=== PATIENT | female | born 1930 | race Caucasian/White ===

== ENCOUNTER 2020-08-04 11:25 | Inpatient (IN) | payer MEDICARE, OTHER ==
--- NOTE | 2020-08-04 14:48 | PCM.HP.2 ---
H&P History of Present Illness - General Date of Service: 08/04/20 Source of Information: Patient History Limitations: Reports: No Limitations - History of Present Illness Initial Comments - Free Text/Narative: Pt here for admit to swing bed was recently admitted acutely for ORIF of ankle fracture and w/u of syncopal episode Here for PT and OT Pt is diabetic Location: Reports: Lower Extremity, Right Quality: Reports: Ache Improves with: Reports: Immobilization Worsens with: Reports: Movement - Related Data Allergies/Adverse Reactions: Allergies Allergy/AdvReac Type Severity Reaction Status Date / Time No Known Allergies Allergy Verified 08/04/20 12:20 Home Medications: Home Meds Acetaminophen 2 tab PO Q8HR 08/04/20 [History] Ascorbic Acid [Vitamin C] 1 tab PO DAILY 08/04/20 [History] Aspirin [Aspirin EC] 2 tab PO DAILY@12 08/04/20 [History] Bismuth Subsalicylate [Pepto-Bismol] 30 ml PO TID PRN 08/04/20 [History] Calcium Carbonate 2 tab PO Q4HR PRN 08/04/20 [History] Calcium Citrate/Vitamin D3 [Calcium Citrate - Vit D3 Tab] 1 tab PO BIDMEALS 08/04/20 [History] Cholecalciferol (Vitamin D3) [Vitamin D3] 1 tab PO DAILY 08/04/20 [History] Cyanocobalamin (Vitamin B-12) [B-12] 1 tab PO DAILY 08/04/20 [History] Enoxaparin [Lovenox] 40 mg SQ DAILY 08/04/20 [History] Glimepiride 1 tab PO DAILY PRN 08/04/20 [History] Losartan [Cozaar] 1 tab PO DAILY 08/04/20 [History] Magnesium Chloride [Mag-64] 1 tab PO DAILY 08/04/20 [History] Melatonin 1 tab PO BEDTIME PRN 08/04/20 [History] Multivit-Min/Iron/Folic/Lutein [Centrum Silver Women Tablet] 1 tab PO DAILY 08/04/20 [History] Sennosides/Docusate Sodium [Senna-S 8.6-50 mg Tablet] 1 tab PO BID 08/04/20 [History] Simvastatin [Zocor] 1 tab PO DAILY 08/04/20 [History] metFORMIN [Glucophage] 2 tab PO BIDMEALS 08/04/20 [History] oxyCODONE 1 tab PO Q4HR PRN 08/04/20 [History] polyethylene glycoL 3350 [MiraLAX] 1 packet PO DAILY 08/04/20 [History] Past Medical History HEENT History: Reports: Cataract, Impaired Vision Cardiovascular History: Reports: High Cholesterol, Hypertension Gastrointestinal History: Reports: [employer] History: Reports: Musculoskeletal History: Reports: Fracture Endocrine/Metabolic History: Reports: Diabetes, Type II - Infectious Disease History Infectious Disease History: Reports: Chicken Pox, Measles, Mumps - Past Surgical History HEENT Surgical History: Reports: Cataract Surgery Cardiovascular Surgical History: Reports: None GI Surgical History: Reports: Colonoscopy, EGD, Hernia Repair/Other Endocrine Surgical History: Reports: None Musculoskeletal Surgical History: Reports: ORIF Social & Family History - Family History Family Medical History: No Pertinent Family History - Tobacco Use Tobacco Use Status *Q: Never Tobacco User Second Hand Smoke Exposure: No - Caffeine Use Caffeine Use: Reports: Coffee - Recreational Drug Use Recreational Drug Use: No H&P Review of Systems - Review of Systems: Review Of Systems: See Below General: Reports: No Symptoms HEENT: Reports: No Symptoms Pulmonary: Reports: No Symptoms Cardiovascular: Reports: No Symptoms Gastrointestinal: Reports: No Symptoms Genitourinary: Reports: No Symptoms Musculoskeletal: Reports: Joint Pain Psychiatric: Reports: No Symptoms Neurological: Reports: Syncope Exam - Exam Exam: See Below - Vital Signs Vital Signs: Last Vital Signs Temp 98.0 F 08/04/20 13:18 Pulse 101 H 08/04/20 13:18 Resp 17 08/04/20 13:18 BP 147/89 H 08/04/20 13:18 Pulse Ox 100 08/04/20 13:18 Weight: 120 lb 1.6 oz - Exam General: Alert, Oriented Neck: Supple Lungs: Clear to Auscultation Cardiovascular: Regular Rhythm GI/Abdominal Exam: Soft, Non-Tender Back Exam: Normal Inspection Extremities: Other (RLE in splint and dressing Dressing intact) Neurological: Normal Speech, Sensation Intact Neuro Extensive - Mental Status: Alert, Oriented x3, Normal Mood/Affect Sepsis Event Note - Evaluation Sepsis Screening Result: No Definite Risk - Focused Exam Vital Signs: Vital Signs Temp Pulse Resp BP Pulse Ox 08/04/20 13:18 98.0 F 101 H 17 147/89 H 100 - Problem List (1) Status post ORIF of fracture of ankle SNOMED Code(s): 321237624 ICD Code: Z98.890 - OTHER SPECIFIED POSTPROCEDURAL STATES; Z87.81 - PERSONAL HISTORY OF (HEALED) TRAUMATIC FRACTURE Status: Acute Current Visit: Yes (2) Diabetes SNOMED Code(s): 35853670 ICD Code: E11.9 - TYPE 2 DIABETES MELLITUS WITHOUT COMPLICATIONS Status: Acute Current Visit: Yes Problem List Initiated/Reviewed/Updated: Yes Assessment/Plan Comment:: IMP: S/P ORIF of ankle fracture Plan: Admit to swing bed for PT and OT - Mortality Measure Prognosis:: Good
[2020-08-04] MEDS ORDERED: Sennosides 8.6 MG Tab PO PRN (14:49)
[2020-08-04] MEDS ORDERED: Bisacodyl 5 MG Tab PO PRN (14:49)
[2020-08-04] MEDS ORDERED: oxyCODONE 5 MG Tab PO PRN (15:05)
[2020-08-04] MEDS ORDERED: Glimepiride 2 MG Tab PO PRN (15:05)
[2020-08-04] MEDS ORDERED: Melatonin 3 MG Tab PO PRN (15:05)
[2020-08-04] MEDS: Acetaminophen 500 MG Tab PO SCH (16:07)
[2020-08-04] MEDS: Calcium Carbonate/Vitamin D3 1500 MG-400 Units Tab PO SCH (17:17)
[2020-08-04] MEDS: metFORMIN 500 MG Tab PO SCH (17:17)
[2020-08-04] MEDS ORDERED: Acetaminophen 325 MG Tab PO PRN (20:00)
[2020-08-05] MEDS: Acetaminophen 500 MG Tab PO SCH ×4 (00:03→23:52)
[2020-08-05] MEDS: Enoxaparin 40 MG/0.4 ML Syringe SUBCUT SCH (07:46)
[2020-08-05] MEDS: Polyethylene Glycol 3350 Powder 17 GM Packet PO SCH (07:46)
[2020-08-05] MEDS: Simvastatin 20 MG Tab PO SCH (07:47)
[2020-08-05] MEDS: Losartan 50 MG Tab PO SCH (07:47)
[2020-08-05] MEDS: Multivitamin Tab PO SCH (07:47)
[2020-08-05] MEDS: metFORMIN 500 MG Tab PO SCH ×2 (07:47→17:18)
[2020-08-05] MEDS: Ascorbic Acid 500 MG Tab PO SCH (07:48)
[2020-08-05] MEDS: Cyanocobalamin (Vitamin B12) 1,000 MCG Tab PO SCH (07:49)
[2020-08-05] MEDS: Calcium Carbonate/Vitamin D3 1500 MG-400 Units Tab PO SCH ×2 (07:49→17:18)
[2020-08-05] MEDS: Cholecalciferol (Vitamin D3) 25 MCG Tab PO SCH (07:52)
[2020-08-05] MEDS: Magnesium Oxide 400 MG Tab PO SCH (07:52)
[2020-08-06] MEDS: Calcium Carbonate/Vitamin D3 1500 MG-400 Units Tab PO SCH ×2 (07:32→16:41)
[2020-08-06] MEDS: Simvastatin 20 MG Tab PO SCH (07:33)
[2020-08-06] MEDS: metFORMIN 500 MG Tab PO SCH ×2 (07:33→16:41)
[2020-08-06] MEDS: Multivitamin Tab PO SCH (07:33)
[2020-08-06] MEDS: Cholecalciferol (Vitamin D3) 25 MCG Tab PO SCH (07:33)
[2020-08-06] MEDS: Acetaminophen 500 MG Tab PO SCH ×2 (07:33→16:42)
[2020-08-06] MEDS: Magnesium Oxide 400 MG Tab PO SCH (07:33)
[2020-08-06] MEDS: Cyanocobalamin (Vitamin B12) 1,000 MCG Tab PO SCH (07:33)
[2020-08-06] MEDS: Ascorbic Acid 500 MG Tab PO SCH (07:34)
[2020-08-06] MEDS: Enoxaparin 40 MG/0.4 ML Syringe SUBCUT SCH (07:35)
[2020-08-06] MEDS: Losartan 50 MG Tab PO SCH (07:35)
[2020-08-06] MEDS: Polyethylene Glycol 3350 Powder 17 GM Packet PO SCH (07:36)
--- OUTSIDE RECORDS SUMMARY | 2020-08-06 09:22 | XMSREPORT ---
:[address] [facility] s Address [address] [place] [address] Care Team Providers Name Role Phone NATHANAEL Benavidez Primary Care Provider NATHANAEL Benavidez Attributed Provider Reason for Visit Reason Comments Fall Patient arrives via [facility] for witnessed fall in [facility]. Patient felt weak and dizzy and fell off of the ch air in the photo department. 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 She was given OJ and BS are 260 now. Patient states she hit her head as well. Auth/Cert Status Reason Specialty Diagnoses / Procedures Referred By Modesto galvan Referred To Contact Encounter Details Date Type Department Care Team Description 08/01/2020 - Hospital Encounter [facility] [address] [place] [address] [phone] Ankle fracture 08/04/[address] Lyndon Vogel MD [address] [place] [address] [phone] [address] Nadia Wharton MD [address] [place] [address] [phone] [facility] Reyes Diana MD [address] [place] [address] [phone] [place] [address] Aj Ledbetter MD [address] [place] [address] [place] [address] [phone] Allergies No Known Allergiesdocumented as of this encounter (statuses as of 08/04/2020) Medications Medication Sig Dispensed Refills Start Date End Date Status bismuth subsalicylate Take 30 mL by 0 Active (PEPTO-BISMOL) 262 mouth 3 times a mg/15 mL SUSP day as needed for diarrhea vitamin C, ascorbic Take 250 mg by 0 Active acid, 250 MG tablet mouth 1 time per day vitamin D3, Take 50 mcg by 0 Act desi cholecalciferol, 50 mcg mouth 1 time per (2000 unit) tablet day cyanocobalamin (VITAMIN Take 1,000 mcg 0 Active B-12) 1000 mcg tablet by mouth 1 time per day Multiple Take 1 tablet by 0 Act desi Vitamins-Minerals mouth 1 time per (CENTRUM SILVER day 50+WOMEN PO) magnesium chloride Take 64 mg by 0 Active (MAG64) 64 mg enteric mouth 1 time per coated tablet day glimepiride (AMARYL) 2 Take 2 mg by 90 tablet 0 12/24/2019 Active mg tabletIndications: mouth 1 time a Type 2 diabetes day as needed mellitus without (for blood sugar complication, without > 110) Give with long-term current use food. of insulin ([facility]) metFORMIN (GLUCOPHAGE) TAKE 2 TABLETS 360 tablet 0 05/05/2020 Active 500 MG BY MOUTH TWICE A tabletIndications: Type DAY 2 diabetes mellitus without complication, without long-term current use of insulin (HCC) Additional Information Patient taking differently: 1,000 mg Oral Two times a day, Informant: Self, Reported on 08/01/2020 10:08 PM losartan 50 mg tabletIndications: TAKE 1 TABLET BY 90 tablet 0 05/05/2020 Active Essential hypertension MOUTH ONCE DAILY Additional Information Patient taking differently: 50 mg Oral Every morning, Informant: Self, Reported on 08/01/2020 10:08 PM Contour NEXT test USE TO TEST BLOOD 100 each 1 05/05/2020 Active stripIndications: Type 2 SUGAR DIRECTED ONCE diabetes mellitus without DAILY NEEDED complication, without long-term current use of insulin ([facility]) simvastatin (ZOCOR) 40 mg TAKE 1/2 TABLET (20MG) 45 tablet 0 0 05/18/2020 Active tabletIndications: Mixed BY MOUTH ONCE DAILY hyperlipidemia Additional Information Patient taking differently: 20 mg Oral DAILY, Informant: Self, Reported on 08/01/2020 10:08 PM vitamin D3, Take 1 tablet 30 tablet 0 08/04/2020 Act desi cholecalciferol, 25 mcg (1,000 Units) by (1000 unit) mouth 1 time per tabletIndications: day Closed bimalleolar fracture of right ankle, initial encounter calcium citrate-vitamin Take 1 tablet by 0 1 Active D (CITRACAL + VIT D) mouth 2 times a day 315 mg-250 unit with meals tabletIndications: Closed bimalleolar fracture of right ankle, initial encounter oxyCODONE (OXY-IR) 5 mg Take 1 tablet (5 30 tablet 0 1 Active tablet (immediate mg) by mouth Every release)Indications: 4 hours as needed Closed bimalleolar for moderate pain fracture of right or severe pain ankle, initial encounter vitamin D3, Take 1 tablet 30 tablet 0 08/04/2020 Act desi cholecalciferol, 25 mcg (1,000 Units) by (1000 unit) mouth 1 time per tabletIndications: day Closed bimalleolar fracture of right ankle, initial encounter aspirin 81 mg enteric Take 2 tablets (162 30 tablet 0 08/17/19 21 Active coated mg) by mouth 1 time tabletIndications: Type per day at noon 2 diabetes mellitus without complication, without long-term current use of insulin (HCC) acetaminophen (TYLENOL) Take 2 tablets 0 08/04/2020 Active 500 mg (1,000 mg) by mouth tabletIndications: Every 8 hours Closed bimalleolar fracture of right ankle, initial encounter calcium carbonate Take 2 tablets 90 tablet 0 08/04/2020 Active (TUMS) 500 MG chewable (1,000 mg) by mouth tabletIndications: Every 4 hours as Healthcare maintenance needed for other (Specify) (acid reflux) enoxaparin (LOVENOX) 40 Inject 40 mg 0 08/05/2020 05 /0 Active mg syringe (100 mg/mL) subcutaneously 1 08/04 subcutaneous injection time per day for 13 21 solutionIndications: days Closed bimalleolar fracture of right ankle, initial encounter polyethylene glycol Take 1 packet by 0 08/05/2020 Active (MIRALAX) 17 g mouth 1 time per packetIndications: day Dissolve in 4 Closed bimalleolar to 8 ounces of fracture of right water, juice, soda, ankle, initial coffee, tea. encounter senna-docusate sodium Take 1 tablet by 0 08/04/2020 Active (SENOKOT-S;PERICOLACE) mouth 2 times a day 8.6-50 MG tabletIndications: Closed bimalleolar fracture of right ankle, initial encounter melatonin 3 mg Take 1 tablet (3 30 tablet 0 08/04/2020 Active tabletIndications: mg) by mouth at Healthcare maintenance bedtime as needed for other (Specify) (insomnia) aspirin 325 mg tablet Take 325 mg by 0 04/ Discontinued mouth 1 time per 11/03 (Da ta entry day 21 error) aspirin 81 mg enteric Take 162 mg by 0 / 2 Discontinued coated tablet mouth 1 time per (Reorder) day at noon 21 documented as of this encounter (statuses as of 08/04/2020) Active Problems Problem Noted Date Ankle fracture 08/01/2020 Type 2 diabetes mellitus without complication, without long-term current 03/28/2019 use of insulin Essential hypertension 03/28/2019 Mixed hyperlipidemia 03/28/2019 documented as of this encounter (statuses as of 08/04/2020) Immunizations Name Administration Dates Next Due FLU VACCINE HIGH DOSE 65YR+(Fluzone) 02/27/2020, 01/31/2019, 02/01/2018, 01/13/2014 Influenza Vaccine,unspecified 02/02/2017, 02/11/2016, 2014, 01/31/2013, 01/16/2012, 01/06/2011, 01/21/2010, 02/06/2008, 02/08/2006, 02/11/2003 Moderna COVID-19 Vaccine 05/28/2020, 04/30/2020 Pneumococcal Conj PCV13 01/29/2015 Pneumococcal Polysaccharide PPSV23 01/31/2000 TDAP 02/11/2016 documented as of this encounter Social History Tobacco Use Types Packs/Day Years Used Date Never Smoker Smokeless Tobacco: Never Used Alcohol Use Drinks/Week oz/Week Comments Never Alcohol Habits Answer Date Recorded How often do you have a drink containing alcohol? Never 08/01/2020 How many drinks containing alcohol do you have on a typical Not asked day when you are drinking? How often do you have six or more drinks on one occasion? No t asked Physical Activity Answer Date Recorded On average, how many days per week do you engage in moderate to 0 days 03/28/2019 strenuous exercise (like walking fast, running, jogging, dancing, swimming, biking, or other activities that cause a light or heavy sweat)? On average, how many minutes do you engage in exercise at th is 0 min 03/28/2019 level? Food Insecurity Answer Date Recorded Within the past 12 months, you worried that your food Someti mes true 12/24/2019 would run out before you got money to buy more. Within the past 12 months, the food you bought just Sometime s true 12/24/2019 didn't last and you didn't have money to get more. Sex Assigned at Date Recorded Not on file documented as of this encounter Last Filed Vital Signs Vital Sign Reading Time Taken Comments Blood Pressure 142/78 08/04/2020 8:00 AM CDT Pulse 90 08/04/2020 8:11 AM CDT Temperature 36.9 C (98.4 F) 08/04/2020 7:36 AM CDT Respiratory Rate 20 08/04/2020 7:36 AM CDT Oxygen Saturation 99% 08/04/2020 7:36 AM CDT Inhaled Oxygen Concentration - - Weight 54 kg (119 lb) 08/01/2020 10:00 PM CDT Height 165.1 cm (5' 5") 08/01/2020 10:00 PM CDT Body Mass Index 19.8 08/01/2020 10:00 PM CDT documented in this encounter Functional Status Functional Status Response Date of Assessment Do you have difficulty with walking, balance, climbing No 03/28/2019 stairs, or had a fall in the last 3 months? documented as of this encounter Discharge Summaries Aj Ledbetter MD - 08/04/2020 9:49 AM CDT Discharge Summary Patient ID: Rickie Schmid is a 89yr female. Attending Physician: Aj Ledbetter MD Discharging Provider Specialty: Adult Hospitalist Admit Date: 08/01/2020 Discharge Date: 08/04/2020 Primary Care Physician: Tawny Benavidez APRN-MENG Code Status: Full Code Primary Discharge Diagnoses 1. Mechanical fall with suspected vasovagal syncopal event with acute bimalleolar fracture of the right ankle 2. Status post ORIF right ankle with Dr. Bradshaw on 08/02/2020 Secondary Discharge Diagnoses Patient Active Problem List Diagnosis Type 2 diabetes mellitus without complication, without long-term current use of insulin (HCC) Essential hypertension Mixed hyperlipidemia Ankle fracture Hospital Course 89-year-old female with medical history including diabetes, hyperlipidemia, hypertension who was admitted on 08/01/2020 after having a ground-level fall. Per report she was noted to feeling weak and having a syncopal-like episode. On arrival vital signs were stable. Labs reviewed troponin negative, CBC was stable. She did have elevated creatinine of 1.52 which corrected to 1.03 at the time of discharge. Other electrolytes were within acceptable limits. CT head without contrast was completed which was negative for any acute intracranial findings. They did do an EKG as well which was reviewed she had sinus tachycardia with nonspecific ST-T wave changes at that time. In addition they did echocardiogram which showed normal ejection fraction no regional wall motion abnormalities. Did not appear to have any significant valvular abnormalities. They did comment on fusion of early atrial contributions of left ventricle filling. In addition they did do x-ray of the ankle and knee on the right which showed acute bimalleolar fracture of the right ankle. Toscano B type fracture of the distal fibula and nondisplaced fracture through the medial malleolus. Orthopedics was on board and ultimately patient went for surgical intervention on 08/02/2020 with open reduction internal fixation of the right ankle. Her syncopal episode was felt to be primarily vasovagal as other work-up was stable and she was feeling better when she got here and during her hospital stay. She tolerated surgery well. She was seen and evaluated by physical and Occupational Therapy.. Orthopedics continue to manage for her postop cares. Vital signs were stable. Pain was controlled primarily with Tylenol and as needed oxycodone. Patient otherwise was medically stable for discharge at this time. Due to needing additional cares she will plan to transfer to swing bed for ongoing therapy and management. Follow-ups in place per orthopedics in 2 weeks. Plan to complete 14-day course of Lovenox 40 mg daily. Other home medications and pain medications as listed below. Discharge plan discussed with patient she was in agreement with plan. Procedures Performed and Findings Procedure(s): OPEN REDUCTION INTERNAL FIXATION RIGHT ANKLE - Wound Class: Clean Discharge Exam Vital Signs: Temp: 98.4 F (36.9 C) | BP: 142/78 | Pulse: 90 | Resp: 20 | Pain Ratin (out of 10) | Weight: 54 kg (119 lb) | O2 Device: Room Air O2 Flow Rate (L/min): 2 l/min | SpO2: 99 % Intake and Output: 08/03 0700 - 08/04 0659 In: 540 [Oral:540] Out: 1000 [Urine:1000] Physical Exam Constitutional: Appearance: Normal appearance. HENT: Head: Normocephalic and atraumatic. Cardiovascular: Rate and Rhythm: Normal rate and regular rhythm. Pulmonary: Effort: Pulmonary effort is normal. No respiratory distress. Breath sounds: Normal breath sounds. Abdominal: General: Bowel sounds are normal. There is no distension. Tenderness: There is no abdominal tenderness. Musculoskeletal: Comments: RT LE surgical site CDI, good peripheral sensation and perfusion Neurological: General: No focal deficit present. Mental Status: She is alert and oriented to person, place, and time. Consults CONSULT ORTHOPEDICS CASE MANAGEMENT CONSULT Discharge Disposition ADULT Discharge Planning: Snf Medicare/Medicaid (4) Discharge Medications Medication List START taking these medications acetaminophen 500 mg tablet Commonly known as: TYLENOL Take 2 tablets (1,000 mg) by mouth Every 8 hours calcium carbonate 500 MG chewable tablet Commonly known as: TUMS Take 2 tablets (1,000 mg) by mouth Every 4 hours as needed for other (Specify) (acid reflux) calcium citrate-vitamin D 315 mg-250 unit tablet Commonly known as: CITRACAL + VIT D Take 1 tablet by mouth 2 times a day with meals enoxaparin 40 mg syringe (100 mg/mL) subcutaneous injection solution Commonly known as: LOVENOX Inject 40 mg subcutaneously 1 time per day for 13 days Start taking on: August 05, 2020 melatonin 3 mg tablet Take 1 tablet (3 mg) by mouth at bedtime as needed for other (Specify) (insomnia) oxyCODONE 5 mg tablet (immediate release) Commonly known as: OXY-IR Take 1 tablet (5 mg) by mouth Every 4 hours as needed for moderate pain or severe pain polyethylene glycol 17 g packet Commonly known as: MIRALAX Take 1 packet by mouth 1 time per day Dissolve in 4 to 8 ounces of water, juice, soda, coffee, tea. Start taking on: August 05, 2020 senna-docusate sodium 8.6-50 MG tablet Commonly known as: SENOKOT-S;PERICOLACE Take 1 tablet by mouth 2 times a day CHANGE how you take these medications aspirin 81 mg enteric coated tablet Take 2 tablets (162 mg) by mouth 1 time per day at noon Start taking on: August 16, 2020 What changed: These instructions start on August 16, 2020. If you are unsure what to do until then, ask your doctor or other care provider. losartan 50 mg tablet TAKE 1 TABLET BY MOUTH ONCE DAILY What changed: when to take this metFORMIN 500 MG tablet Commonly known as: GLUCOPHAGE TAKE 2 TABLETS BY MOUTH TWICE A DAY What changed: See the new instructions. simvastatin 40 mg tablet Commonly known as: ZOCOR TAKE 1/2 TABLET (20MG) BY MOUTH ONCE DAILY What changed: See the new instructions. * vitamin D3 (cholecalciferol) 50 mcg (2000 unit) tablet What changed: Another medication with the same name was added. Make sure you understand how and whento take each. * vitamin D3 (cholecalciferol) 25 mcg (1000 unit) tablet Take 1 tablet (1,000 Units) by mouth 1 time per day What changed: You were already taking a medication with the same name, and this prescription was added. Make sure you understand how and when to take each. * vitamin D3 (cholecalciferol) 25 mcg (1000 unit) tablet Take 1 tablet (1,000 Units) by mouth 1 time per day What changed: You were already taking a medication with the same name, and this prescription was added. Make sure you understand how and when to take each. * This list has 3 medication(s) that are the same as other medications prescribed for you. Read thedirections carefully, and ask your doctor or other care provider to review them with you. CONTINUE taking these medications bismuth subsalicylate 262 mg/15 mL Susp Commonly known as: PEPTO-BISMOL CENTRUM SILVER 50+WOMEN PO CONTOUR NEXT Strp USE TO TEST BLOOD SUGAR DIRECTED ONCE DAILY NEEDED cyanocobalamin 1000 mcg tablet Commonly known as: vitamin B-12 glimepiride 2 mg tablet Commonly known as: AMARYL magnesium chloride 64 mg enteric coated tablet Commonly known as: MAG64 vitamin C (ascorbic acid) 250 MG tablet Where to Get Your Medications These medications were sent to [facility] [place] [id number] [address] [facility] [address], [facility] [address] oxyCODONE 5 mg tablet (immediate release) Information about where to get these medications is not yet available Ask your nurse or doctor about these medications acetaminophen 500 mg tablet aspirin 81 mg enteric coated tablet calcium carbonate 500 MG chewable tablet calcium citrate-vitamin D 315 mg-250 unit tablet enoxaparin 40 mg syringe (100 mg/mL) subcutaneous injection solution melatonin 3 mg tablet polyethylene glycol 17 g packet senna-docusate sodium 8.6-50 MG tablet vitamin D3 (cholecalciferol) 25 mcg (1000 unit) tablet vitamin D3 (cholecalciferol) 25 mcg (1000 unit) tablet Discharge Instructions See AVS for discharge instructions. Tests Pending at Discharge Follow-Up Scheduled See AVS for Follow up appointments made Medical Decision Making The time spent on discharge coordination was less than 30 minutes. documented in this encounter Medications at Time of Discharge Medication Sig Dispensed Refills Start Date End Date oxyCODONE (OXY-IR) 5 Take 1 tablet (5 mg) 30 tablet 0 08/04 mg tablet (immediate by mouth Every 4 hours release)Indications: as needed for moderate Closed bimalleolar pain or severe pain fracture of right ankle, initial encounter aspirin 81 mg enteric Take 2 tablets (162 30 tablet 0 08/16 coated mg) by mouth 1 time tabletIndications: per day at noon Type 2 diabetes mellitus without complication, without long-term current use of insulin (HCC) acetaminophen Take 2 tablets (1,000 0 08/04/2020 (TYLENOL) 500 mg mg) by mouth Every 8 tabletIndications: hours Closed bimalleolar fracture of right ankle, initial encounter calcium carbonate Take 2 tablets (1,000 90 tablet 0 021 (TUMS) 500 MG chewable mg) by mouth Every 4 tabletIndications: hours as needed for Healthcare maintenance other (Specify) (acid reflux) enoxaparin (LOVENOX) Inject 40 mg 0 08/05/2020 40 mg syringe (100 subcutaneously 1 time mg/mL) subcutaneous per day for 13 days injection solutionIndications: Closed bimalleolar fracture of right ankle, initial encounter polyethylene glycol Take 1 packet by mouth 0 07/17 (MIRALAX) 17 g 1 time per day packetIndications: Dissolve in 4 to 8 Closed bimalleolar ounces of water, fracture of right juice, soda, coffee, ankle, initial tea. encounter senna-docusate sodium Take 1 tablet by mouth 0 (SENOKOT-S;PERICOLACE) 2 times a day 8.6-50 MG tabletIndications: Closed bimalleolar fracture of right ankle, initial encounter melatonin 3 mg Take 1 tablet (3 mg) 30 tablet 0 08/04/2020 tabletIndications: by mouth at bedtime as Healthcare maintenance needed for other (Specify) (insomnia) simvastatin (ZOCOR) 40 TAKE 1/2 TABLET (20MG) 45 tablet 0 0 05/18/2020 mg tabletIndications: BY MOUTH ONCE DAILY Mixed hyperlipidemia metFORMIN (GLUCOPHAGE) TAKE 2 TABLETS BY 360 tablet 0 2020 500 MG MOUTH TWICE A DAY tabletIndications: Type 2 diabetes mellitus without complication, without long-term current use of insulin ([facility]) losartan 50 mg TAKE 1 TABLET BY MOUTH 90 tablet 0 tabletIndications: ONCE DAILY Essential hypertension Contour NEXT test USE TO TEST BLOOD 100 each 05/05/2020 stripIndications: Type SUGAR DIRECTED ONCE 2 diabetes mellitus DAILY NEEDED without complication, without long-term current use of insulin ([facility]) magnesium chloride Take 64 mg by mouth 1 0 (MAG64) 64 mg enteric time per day coated tablet glimepiride (AMARYL) 2 Take 2 mg by mouth 1 90 tablet 0 11/2019 mg tabletIndications: time a day as needed Type 2 diabetes (for blood sugar > mellitus without 110) Give with food. complication, without long-term current use of insulin ([facility]) bismuth subsalicylate Take 30 mL by mouth 3 0 (PEPTO-BISMOL) 262 times a day as needed mg/15 mL SUSP for diarrhea vitamin C, ascorbic Take 250 mg by mouth 1 0 acid, 250 MG tablet time per day vitamin D3, Take 50 mcg by mouth 1 0 cholecalciferol, 50 time per day mcg (2000 unit) tablet cyanocobalamin Take 1,000 mcg by 0 (VITAMIN B-12) 1000 mouth 1 time per day mcg tablet Multiple Take 1 tablet by mouth 0 Vitamins-Minerals 1 time per day (CENTRUM SILVER 50+WOMEN PO) vitamin D3, Take 1 tablet (1,000 30 tablet 0 08/04/2020 cholecalciferol, 25 Units) by mouth 1 time mcg (1000 unit) per day tabletIndications: Closed bimalleolar fracture of right ankle, initial encounter calcium Take 1 tablet by mouth 0 08/04/2020 citrate-vitamin D 2 times a day with (CITRACAL + VIT D) 315 meals mg-250 unit tabletIndications: Closed bimalleolar fracture of right ankle, initial encounter vitamin D3, Take 1 tablet (1,000 30 tablet 0 08/04/2020 cholecalciferol, 25 Units) by mouth 1 time mcg (1000 unit) per day tabletIndications: Closed bimalleolar fracture of right ankle, initial encounter documented as of this encounter Progress Notes Yeimi Valente PA - 08/04/2020 10:18 AM CDT Orthopedic Progress Note Rickie Schmid is a 89yr old female admitted on 08/01/2020 5:33 PM. S: doing well, d/c to SNF today. Pain is steady. { Lab Results Component Value Date HEMOGLOBIN 11.2 (L) 08/03/2020 O: Vital Signs: Temp: 98.4 F (36.9 C) | BP: 142/78 | Pulse: 90 | Resp: 20 | Pain Ratin (out of 10) | Weight: 54 kg (119 lb) | O2 Device: Room Air O2 Flow Rate (L/min): 2 l/min | SpO2: 99 % Maximum Temperatures (last 24 hours) Temperature Maximum Max Temp 98.5 F (36.9 C) Exam: alert, oriented Splint is dry, no drainage Distal sensation intact A: 2 Days Post-Op Status Post: Procedure(s): OPEN REDUCTION INTERNAL FIXATION RIGHT ANKLE P: d/c to SNF today Follow up 2 weeks NWB status, on lovenox for DVT prophylaxis. Yeimi Valente PA-C Zurdo Godinez PA - 08/03/2020 3:18 PM CDT Ortho Progress Note Rickie Schmid is a 89yr old female 1 Day Post-Op, Status Post Procedure(s): OPEN REDUCTION INTERNAL FIXATION RIGHT ANKLE. BP 152/74 | Pulse 94 | Temp 98 F (36.7 C) | Resp 16 | Ht 1.651 m (5' 5") | Wt 54 kg (119 lb) | SpO2 98% | BMI 19.80 kg/m Lab Results Component Value Date HEMOGLOBIN 11.2 (L) 08/03/2020 Patient doing ok, complains of mild pain. The patient denies nausea. The dressing/incision is clean With no drainage. Splint intact. Compartments soft and non-tender. Distal NV intact right lower extremity. Plan: Continue cares. NWB RLE. Awaiting placement- swing bed Roy tomorrow? Aj Brown MD - 08/03/2020 9:58 AM CDT DAILY PROGRESS NOTE Rickie Schmid is a 89yr old female admitted on 08/01/2020 5:33 PM. Impression / Plan 1. Mechanical fall with suspected vasovagal syncopal event with acute bimalleolar fracture of the right ankle 2. Status post ORIF right ankle with Dr. Bradshaw on 08/02/2020 Plan: Orthopedics following for postoperative cares Pain control acetaminophen, oxycodone Bowel regimen in place PT and OT to follow, NWB RLE Work-up for syncope including echocardiogram troponin completed. Suspected vasovagal with dehydration otherwise no further work-up recommended at this time Will recheck labs today Acute kidney injury: Creatinine 1.52 on admission currently resolved we will continue to monitor andencourage oral intake Diabetes mellitus type 2: Holding home medications placed on sliding scale insulin Hypertension: Resume losartan Hyperlipidemia: Resume Zocor DVT prophylaxis: Postoperative Lovenox CODE STATUS: Full code Disposition: Pending orthopedic clearance as well as PT and OT evaluation for safe discharge planning. Interval History HPI No acute events overnight. Patient doing well. Pain well controlled. Did complain of some chills and a little bit of irritation in her throat this morning. No shortness of breath or chest pain. Nobowel movement at this time. Making urine. Review of Systems Review of Systems Constitutional: Positive for chills. HENT: Positive for sore throat. Eyes: Negative for visual disturbance. Respiratory: Negative for shortness of breath and wheezing. Cardiovascular: Negative for chest pain and palpitations. Gastrointestinal: Positive for constipation. Negative for abdominal pain, nausea and vomiting. Genitourinary: Negative for difficulty urinating. Musculoskeletal: Positive for arthralgias and joint swelling. Skin: Positive for wound. Neurological: Negative for dizziness and headaches. Psychiatric/Behavioral: Negative for agitation and confusion. Physical Exam Vital Signs: Temp: 98 F (36.7 C) | BP: 119/52 | Pulse: 88 | Resp: 18 | Pain Ratin (out of 10) | Weight: 54 kg (119 lb) | O2 Device: Room Air O2 Flow Rate (L/min): 2 l/min | SpO2: 97 % Maximum Temperatures (last 24 hours) Temperature Maximum Max Temp 98.3 F (36.8 C) Intake and Output: 08/02 0700 - 08/03 0659 In: 1553 [Oral:225] Out: 950 [Urine:950] Physical Exam Constitutional: Appearance: Normal appearance. HENT: Head: Normocephalic and atraumatic. Eyes: General: No scleral icterus. Conjunctiva/sclera: Conjunctivae normal. Pulmonary: Effort: Pulmonary effort is normal. No respiratory distress. Breath sounds: Normal breath sounds. Abdominal: General: Bowel sounds are normal. There is no distension. Tenderness: There is no abdominal tenderness. Musculoskeletal: Comments: RT LE dressing in place CDI, NV intact, good peripheral blood flow Neurological: General: No focal deficit present. Mental Status: She is alert and oriented to person, place, and time. Psychiatric: Mood and Affect: Mood normal. Behavior: Behavior normal. Labs Labs (Last day) 08/03/20 0634 - 08/02/20 1217 GLUCOSE POINT OF CARE 08/03/20 0634 08/02/20 2109 08/02/20 1755 08/02/20 1217 GLUCOSE POINT OF CARE Glucose POC 70-99 (mg/dL) 87 157 128 108 Medical Decision making MDM Reviewed: previous chart, nursing note and vitals Reviewed previous: labs and x-ray Interpretation: labs Юлия, Kathie Floyd APRN-EDUCATION DIRECTOR - 08/02/2020 9:17 AM CDT Hospital Progress Note Rickie Schmid is a 89yr old female admitted on 08/01/2020. Assessment / Plan Active Problems: Ankle fracture Resolved Problems: * No resolved hospital problems. * Plan: Syncope, vasovagal - dehydration, not eating, and overexerting herself that day likely playing a role - troponin negative, - telemetry - Echo - Normal left ventricular systolic function. The ejection fraction is visually estimated to be 65 %. Interventricular septal thickness in 2D is 11.0 mm. Posterior wall thickness in 2D is 9.0 mm. Mild Mitral regurgitation - no further workup needed Acute bimalleolar fracture of the right ankle - Management per Ortho - Plan for OR today. - pain management - bowel regimen in place Acute Kidney Injury - Cr 1.52 on admission - likely due to dehydration - Continue IVF - Cr 0.99 - BMP in am Diabetes mellitus type 2 - hold glimeperide and metformin - SSI Hypertension - BP 125/56 - hold losartan, prn labetalol and hydralazine Hyperlipidemia - continue zocor DVT prophylaxis - SCD pre-op - Lovenox Post-op per ortho Full COde HPI / History / ROS HPI Patient is a 89-year-old female with past medical history of diabetes type 2, hypertension, hyperlipidemia who presented to the emergency room with syncopal episode and right ankle pain status post fall. Per report, [facility] started to feel lightheaded she sat on the chair, family states then she slumped in chair and passed out. She came to and then passed out a secondtime. Sotalol for her off the chair and hit her head on the ground. Her right leg bent underneath her abnormally. They gave her some washers and candy and then checked her blood sugar. Blood sugar was 260. Nobody checked BS prior to giving her juice and candy. On admission troponin negative, CBC with WBC 12.3 otherwise unremarkable, chemistry with glucose 243, creatinine 1.52, EKG normal sinus rhythm, nonspecific ST abnormality X-ray right knee: 1. No acute traumatic change. 2. Chondrocalcinosis. 3. Arteriosclerosis.. X-ray right ankle: 1. Acute bimalleolar fracture of the right ankle. Toscano B type fracture of the distal fibula and nondisplaced fracture through the medial malleolus evident. 2. Ankle mortise appears to be well preserved. CT head: Normal unenhanced CT scan of the brain. There is no acute infarct. There is no acute intracranial hemorrhage. Interval: patient feels well, states that her family just got here and are visiting from [place]. [facility]. This is the first time she has been out of [place] in over a year and a half. States she did a lot more walking then she used to, and was not drinking enough water that day, as if she drinks more she is always running to the bathroom. States they had plans to go to [facility] later in the evening so hadn't eaten much for lunch. Just came out of the bathroom, and was in the photo section when she started to get dizzy and then passed out and hurt her ankle. Syncope likely vasovagal in nature, and dehydration and not eating playing a role. No significant abnormalities noted on echo. Will proceed to OR today, and transfer to post-op for post op cares. Ortho was consulted and plan for surgical repair of the right ankle fracture and any other indicatedprocedures with Dr. Bradshaw today Review of Systems Constitutional: Negative for chills and fever. HENT: Negative for congestion and sore throat. Cardiovascular: Negative for chest pain. Gastrointestinal: Negative for abdominal pain, nausea and vomiting. Genitourinary: Negative for dysuria. Musculoskeletal: Positive for arthralgias (right ankle pain). Negative for back pain. Neurological: Positive for syncope. Psychiatric/Behavioral: Negative for confusion. Physical / Results Current Vital Signs Temp: 97.7 F (36.5 C) BP: 125/56 Weight: 54 kg (119 lb) SpO2: 98 % Resp: 16 Pulse: 88 Current BMI (>50 = increased risk): 19.8 O2 Device: Room Air Pain Ratin Physical Exam Vitals signs and nursing note reviewed. Constitutional: General: She is not in acute distress. HENT: Head: Normocephalic and atraumatic. Eyes: Conjunctiva/sclera: Conjunctivae normal. Cardiovascular: Rate and Rhythm: Normal rate. Pulmonary: Effort: Pulmonary effort is normal. No respiratory distress. Abdominal: Tenderness: There is no abdominal tenderness. Musculoskeletal: Comments: Right leg in splint Skin: General: Skin is warm and dry. Neurological: General: No focal deficit present. Mental Status: She is alert and oriented to person, place, and time. Mental status is at baseline. Psychiatric: Mood and Affect: Mood normal. Behavior: Behavior normal. Parveen aSnchez RPh - 08/01/2020 10:13 PM CDT 08/01/2020 10:13 PM CDT - Patient was seen by pharmacy on the [facility] unit. HOME MEDICATIONS have beenreconciled and updated to match the patient's home usage. Parveen Sanchez RPh Prior to Admission Medications Prescriptions Last Dose Informant Patient Reported? Taking? Contour NEXT test strip Self No Yes Sig: USE TO TEST BLOOD SUGAR DIRECTED ONCE DAILY NEEDED Multiple Vitamins-Minerals (CENTRUM SILVER 50+WOMEN PO) 08/01/2020 at AM Self Yes Yes Sig: Take 1 tablet by mouth 1 time per day aspirin 81 mg enteric coated tablet 08/01/2020 at AM Self Yes Yes Sig: Take 162 mg by mouth 1 time per day at noon bismuth subsalicylate (PEPTO-BISMOL) 262 mg/15 mL SUSP Past Month at Unknown time Self Yes Yes Sig: Take 30 mL by mouth 3 times a day as needed for diarrhea cyanocobalamin (VITAMIN B-12) 1000 mcg tablet 08/01/2020 at AM Self Yes Yes Sig: Take 1,000 mcg by mouth 1 time per day glimepiride (AMARYL) 2 mg tablet Past Week at Unknown time Self Yes Yes Sig: Take 2 mg by mouth 1 time a day as needed (for blood sugar > 110) Give with food. losartan 50 mg tablet 08/01/2020 at AM Self No Yes Sig: TAKE 1 TABLET BY MOUTH ONCE DAILY Patient taking differently: Take 50 mg by mouth 1 time a day in the morning magnesium chloride (MAG64) 64 mg enteric coated tablet 08/01/2020 at AM Self Yes Yes Sig: Take 64 mg by mouth 1 time per day metFORMIN (GLUCOPHAGE) 500 MG tablet 08/01/2020 at AM Self No Yes Sig: TAKE 2 TABLETS BY MOUTH TWICE A DAY Patient taking differently: Take 1,000 mg by mouth 2 times a day simvastatin (ZOCOR) 40 mg tablet 07/31/2020 at PM Self No Yes Sig: TAKE 1/2 TABLET (20MG) BY MOUTH ONCE DAILY Patient taking differently: Take 20 mg by mouth 1 time per day vitamin C, ascorbic acid, 250 MG tablet 08/01/2020 at AM Self Yes Yes Sig: Take 250 mg by mouth 1 time per day vitamin D3, cholecalciferol, 50 mcg (2000 unit) tablet 08/01/2020 at AM Self Yes Yes Sig: Take 50 mcg by mouth 1 time per day Facility-Administered Medications: None documented in this encounter H&P Notes See, Dav White MD - 08/01/2020 10:11 PM CDT ADMISSION HISTORY AND PHYSICAL NOTE Patient ID: Rickie Schmid is a 89yr female. PCP: Tawny Benavidez APRN-EDUCATION DIRECTOR Attending Provider: Lyndon Vogel MD NOELLE: [phone] Impression / Plan 1. Right ankle fracture- orthopedic consult, oral tylenol, oxycodone and dilaudid prn. Plan for surgery in am. Patient low risk for perioperative complication for low risk surgery 2. Diabetes mellitus type 2- hold glimeperide and metformin, monitor blood sugar, sliding scale insulin 3. Acute renal failure- IVF, monitor creatinine 4. Hypertension- hold losartan, prn labetalol and hydralazine 5. Syncope- telemetry, echo, IVF 6. Hyperlipidemia- continue zocor 7. DVT prophylaxis- SCD 8. Leukocytosis from stress- repeat cbc in am Chief Complaint / HPI HPI Dictation #1 [id number]:[id number] Medications Prior to Admission Medications Prescriptions Last Dose Informant Patient Reported? Taking? Contour NEXT test strip Self No Yes Sig: USE TO TEST BLOOD SUGAR DIRECTED ONCE DAILY NEEDED Multiple Vitamins-Minerals (CENTRUM SILVER 50+WOMEN PO) 08/01/2020 at AM Self Yes Yes Sig: Take 1 tablet by mouth 1 time per day aspirin 81 mg enteric coated tablet 08/01/2020 at AM Self Yes Yes Sig: Take 162 mg by mouth 1 time per day at noon bismuth subsalicylate (PEPTO-BISMOL) 262 mg/15 mL SUSP Past Month at Unknown time Self Yes Yes Sig: Take 30 mL by mouth 3 times a day as needed for diarrhea cyanocobalamin (VITAMIN B-12) 1000 mcg tablet 08/01/2020 at AM Self Yes Yes Sig: Take 1,000 mcg by mouth 1 time per day glimepiride (AMARYL) 2 mg tablet Past Week at Unknown time Self Yes Yes Sig: Take 2 mg by mouth 1 time a day as needed (for blood sugar > 110) Give with food. losartan 50 mg tablet 08/01/2020 at AM Self No Yes Sig: TAKE 1 TABLET BY MOUTH ONCE DAILY Patient taking differently: Take 50 mg by mouth 1 time a day in the morning magnesium chloride (MAG64) 64 mg enteric coated tablet 08/01/2020 at AM Self Yes Yes Sig: Take 64 mg by mouth 1 time per day metFORMIN (GLUCOPHAGE) 500 MG tablet 08/01/2020 at AM Self No Yes Sig: TAKE 2 TABLETS BY MOUTH TWICE A DAY Patient taking differently: Take 1,000 mg by mouth 2 times a day simvastatin (ZOCOR) 40 mg tablet 07/31/2020 at PM Self No Yes Sig: TAKE 1/2 TABLET (20MG) BY MOUTH ONCE DAILY Patient taking differently: Take 20 mg by mouth 1 time per day vitamin C, ascorbic acid, 250 MG tablet 08/01/2020 at AM Self Yes Yes Sig: Take 250 mg by mouth 1 time per day vitamin D3, cholecalciferol, 50 mcg (2000 unit) tablet 08/01/2020 at AM Self Yes Yes Sig: Take 50 mcg by mouth 1 time per day Facility-Administered Medications: None Allergies No Known Allergies Medical / Surgical / Family History Past Medical History: Diagnosis Date Diabetes mellitus (HCC) Hyperlipidemia Hypertension Past Surgical History: Procedure Laterality Date HERNIA REPAIR History reviewed. No pertinent family history. Social History Social History Tobacco Use Smoking status: Never Smoker Smokeless tobacco: Never Used Substance Use Topics Alcohol use: Not on file Drug use: Not on file ROS Review of Systems Constitutional: Negative for activity change and appetite change. HENT: Negative for facial swelling. Eyes: Negative for discharge. Respiratory: Negative for cough and shortness of breath. Cardiovascular: Negative for chest pain and leg swelling. Gastrointestinal: Negative for abdominal distention, diarrhea and vomiting. Genitourinary: Negative for dysuria. Musculoskeletal: Positive for arthralgias and joint swelling. Skin: Negative for color change. Neurological: Positive for dizziness. Negative for weakness. Hematological: Negative for adenopathy. Psychiatric/Behavioral: Negative for agitation. All other systems reviewed and are negative. Physical Exam BP 155/76 | Pulse 106 | Temp 97.8 F (36.6 C) | Resp 16 | SpO2 98% Physical Exam Vitals signs and nursing note reviewed. Constitutional: Appearance: Normal appearance. HENT: Head: Normocephalic and atraumatic. Nose: Nose normal. Mouth/Throat: Mouth: Mucous membranes are dry. Eyes: General: Right eye: No discharge. Left eye: No discharge. Neck: Musculoskeletal: Normal range of motion. Cardiovascular: Rate and Rhythm: Normal rate and regular rhythm. Pulmonary: Effort: Pulmonary effort is normal. No respiratory distress. Breath sounds: Normal breath sounds. Abdominal: General: Bowel sounds are normal. There is no distension. Palpations: Abdomen is soft. Musculoskeletal: Comments: Cast in the right ankle Skin: General: Skin is warm and dry. Neurological: General: No focal deficit present. Mental Status: She is alert and oriented to person, place, and time. Labs Labs (Last day) 08/01/201843 - 08/01/20 184 CARDIAC MARKERS 08/01/201843 CARDIAC MARKERS Troponin I 0.000-0.028 (ng/mL) 0.006 08/01/20 184 - 08/01/20 184 CBC 08/01/201843 CBC WBC 4.0-11.0 (K/uL) 12.3 RBC 3.80-5.30 (M/uL) 4.06 Hemoglobin 11.5-15.8 (g/dL) 11.8 Hematocrit 35.0-45.0 (%) 37.2 MCV 80.0-98.0 (fL) 91.6 MCH 25.5-34.0 (pg) 29.1 MCHC 31.5-36.5 (g/dL) 31.7 RDW-CV 11.5-15.5 (%) 13.4 RDW-SD 35.5-50.0 (fl) 44.8 Platelet Count 140-400 (K/uL) 276 MPV 8.5-12.0 (fL) 9.9 08/01/201843 - 08/01/201843 CHEMISTRY 08/01/201843 CHEMISTRY Glucose 70-100 (mg/dL) 243 Sodium 135-145 (meq/L) 136 Potassium 3.5-5.3 (meq/L) 4.5 Chloride 99-110 (meq/L) 100 CO2 20-29 (meq/L) 23 Anion Gap with K 6-20 (meq/L) 18 BUN 6-22 (mg/dL) 18 Creatinine 0.60-1.10 (mg/dL) 1.52 BUN/Creatinine Ratio 10.0-25.0 11.8 Calcium 8.5-10.5 (mg/dL) 9.7 Bilirubin Total 0.2-1.2 (mg/dL) 0.4 Alkaline Phosphatase 30-150 (U/L) 52 ALT - SGPT 0-55 (U/L) 11 AST - SGOT 0-35 (U/L) 20 Protein Total 6.0-8.2 (g/dL) 7.1 Albumin 3.5-5.0 (g/dL) 4.0 eGFR >=60 (mL/min/1.73m2) 39 eGFR Non- >=60 (mL/min/1.73m2) 32 08/01/201843 - 08/01/201843 DIFFERENTIAL 08/01/201843 DIFFERENTIAL Seg Neut Absolute 1.8-8.0 (K/uL) 10.1 Lymphocytes Absolute 0.8-4.1 (K/uL) 1.1 Monocytes Absolute 0.0-1.0 (K/uL) 1.0 Eosinophils Absolute 0.0-0.7 (K/uL) 0.0 Basophil Absolute 0.0-0.2 (K/uL) 0.1 Immature Granulocyte Absolute 0.00-0.06 (K/uL) 0.08 Neutrophils Percent (%) 81.8 Neutrophils Abs. (Segs and Bands) (/uL) 10,100 Lymphocytes Percent (%) 8.5 Monocytes Percent (%) 8.4 Immature Granulocyte Percent (%) 0.6 Eosinophils Percent (%) 0.2 Basophil Percent (%) 0.5 Nucleated RBC (/100 WBC's) 0 08/01/20 1844 - 08/01/20 184 GENERAL COAGULATION 08/01/20 184 GENERAL COAGULATION Protime 12.0-14.5 (secs) 14.4 INR 2.0-3.5 1.2 08/01/20 184 - 08/01/20 184 OTHER 08/01/20 184 OTHER Age (Years) 89 Procedures Procedures Medical Decision Making MDM Reviewed: previous chart, nursing note and vitals Reviewed previous: labs and x-ray documented in this encounter Consult Notes Eliel Mar MD - 08/01/2020 10:56 PM CDT Orthopedic Consult Note Reason for Consultation: Right ankle fracture Assessment: Patient is an 89yo female with pmh significant for DMII and acute renal failure preseting with a right bimalleloar ankle fracture after a ground level fall. Patient is neurovascularly intact in the extremity. At this time, skin over the ankle appears ok. We will plan for surgical repair tomorrow. Plan: - Discussed with Dr. Bradshaw - OR tomorrow - keep splint in place - NPO at midnight - bedrest Rickie Schmid has elected to proceed with surgical repair of right ankle fracture with hardware. All risks, benefits of restoring anatomy alleviating symptoms and improving function reviewed. Alternatives, prognosis, and post-operative course were discussed. All risks including, but not limited to infection, bleeding, damage to skin, blood vessels; muscle, nerve, tendon, and bone; anesthetic complications including heart attack, stroke, anesthetic ; and the need for further surgeries were reviewed with the patient today. No surgical guarantees were given or implied. The patient was given the opportunity to ask questions. All questions were answered. Patient verbalized understanding of above and elected to proceed. HPI: Patient is an 89yo female with pmh significant for DMII and acute renal failure presenting witha right bimalleolar ankle fracture after a ground level fall. Patient states she came out of the bathroom and started feeling lightheaded. She sat on a chair a family states she slumped over the chairand passed out. They sat her up and she came to for second but then she passed out again. This timeshe fell over and hit her head on the ground and had her leg bent under her abnormally. She had right ankle pain. Xrays here showed the right ankle fracture. She denies any numbness or tingling in theleg. She lives alone and ambulates without assistive device. Physical Exam: Vitals: 08/01/20199908/01/20202908/01/20204408/01/20 2200 BP: 155/76 160/75 Pulse: 106 107 108 Resp: Temp: SpO2: 98% 98% 100% Weight: 54 kg (119 lb) Height: 165.1 cm (65") Gen: Lying in bed, NAD MSK: On gross examination of RLE, no blisters, lacerations or open wounds present; swelling presentover ankle but skin able to wrinkle; pulses 1+, capillary refill brisk, limb warm and well perfused,SPN/DPN/sural nerves intact, able to wiggle toes Labs: INR 1.2 Imaging: - X-ray: right mildly displaced bimalleolar ankle fracture PMH: Past Medical History: Diagnosis Date Diabetes mellitus (HCC) Hyperlipidemia Hypertension PSH: Past Surgical History: Procedure Laterality Date HERNIA REPAIR Review of systems: Pertinent ROS questions in HPI Eliel MD Isabela Orthopedic Surgery Resident - PGY-2 Associated attestation - Yovany Bradshaw MD - 08/02/2020 8:29 AM CDT I discussed the patient with the resident and personally interviewed and examined the patient. I verified in the medical record all resident documentation/findings, including history, physical exam, and medical decision making, and I agree with the resident's documentation. Ortho Pre-Op Note Dx: Right bimalleolar ankle fracture Plan: Surgical repair of right ankle fracture and any other indicated procedures Risks/Benefits/Alternatives to surgery and post-op rehab plan were discussed with the patient. Risksinclude but not limited to: Bleeding, possibility of transfusion, infection, injury to associated structures, DVT/PE, failure of procedure, reoperation, implant failure, persistent joint pain or stiffness. Loss of life/limb was discussed with the patient. All questions answered, no guarantees implied or givendocumented in this encounter Nursing Notes Tiffanie Bergeron RN - 08/02/2020 3:35 PM CDTAll implants verbally ordered by surgeon, verified with surgical team prior to use. Verbally verified with surgeon that no specimen was collected. conveyor technician signed OR specimen checklist to confirm. Checklist returned to OR desk at conclusion of case. documented in this encounter ED Notes Silverio Gary RN - 08/01/2020 9:10 [address]TDr. Vogel states the pt. Wants to go home and will have to be able to demo safe ambulation with crutches/NWB on right foot before she can be discharged from ER. This nurse assists the pt. With fitting her for crutches. Pt. Is able to ambulates approx. 10 feet with crutches. Pt. Is not able to bring both crutches forward when walking (moves them forward one at a time). Pt. States she will not be able to ambulate with crutches at home and will agree to admission. Pt. Uses bedside commode; is able to keep all weight off of right foot during pivot transfers. updated on this and states pt. Willbe admitted. Silverio Gilliam RN - 08/01/2020 9:05 PM CDTIn room to assist Dr. Vogel with applying splint to R ankle Lyndon Wei MD - 08/01/2020 6:25 PM CDTAssociated Order(s): ORTHOPEDIC INJURY TREATMENTPost-Procedure Diagnose(s): Closed bimalleolar fracture of right ankle, initial encounter Emergency Department Visit 08/01/2020 PT ID: Rickie Schmid is a 89yr old female CHIEF COMPLAINT: Chief Complaint Patient presents with Fall Patient arrives via [facility] for witnessed fall in [facility]. Patient felt weak and dizzy and fell off ofthe chair in the photo department. 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 She was given OJ and BS are 260 now. Patient states she hit her head as well. DIAGNOSIS/ASSESSMENT: NEW PRESCRIPTIONS: 1. Closed bimalleolar fracture of right ankle, initial encounter 2. Fall, initial encounter 3. Syncope, unspecified syncope type DISPOSITION AND PLAN: Patient Disposition: Patient Admitted and Treated in this Facility Patient will be admitted. HPI: HPI Rickie Schmid is a 89yr old female who presents to the Emergency Department with a history of diabetes, she is on metformin. Patient states she came out of the bathroom and started feel little lightheaded. She sat on a chair and got out to me and eaten nuts all she members. Family states she isslumped over the chair and passed out. They sat her up and she came to for second then she passed out again fell over and hit her head on the ground and had her leg bent under her abnormally. She came to. They got her some orange juice and candy bar and then checked her blood sugar and after the orange juice and candy bar was in the 260s. No one checked it immediately when she fell. She states she is only having minimal headache, no neck pain but she is having significant ankle pain. Otherwiseshe feels just fine. No chest pain, shortness of breath. ED COURSE Broad differential diagnosis considered including the following but not limited to: Hypoglycemia, arrhythmia, KS, intravenous hemorrhage, ankle fracture, metabolic abnormality Patient here who overall appears well at this time. She had a syncopal episode and hit her head andhas potential ankle fracture. She is swelling over the malleolus. X-rays were obtained of her kneeand ankle. I will obtain head CT. Labwork and EKG were obtained. This may be related to a hypoglycemic episode or vasovagal episode. No chest pain or shortness of breath to suggest cardiac dysrhythmia. She had prodromal symptoms with this. Lab work shows mild leukocytosis and mild renal insufficiency which is chronic and stable. X-ray shows a bimalleolar fracture of her right ankle. No knee fracture. Head CT is unremarkable. She thought she could go home and not bear weight his crutches however she was unsuccessful even getting fromthe bedside. She will require admission for likely placement. Case discussed with orthopedic team that will evaluate. Case discussed with the hospitalist who will admit. I am suspicious or passing out episode was likely due to hypoglycemia but this may possibly be due to some other source as well and should be evaluated further. Patient is not happy with admission but realizes she cannot go home MDM Number of Diagnoses or Management Options Closed bimalleolar fracture of right ankle, initial encounter: Fall, initial encounter: Syncope, unspecified syncope type: Amount and/or Complexity of Data Reviewed Clinical lab tests: ordered and reviewed Tests in the radiology section of CPT: ordered and reviewed Obtain history from someone other than the patient: yes (Family) Review and summarize past medical records: yes (Reviewed records in [facility]) Independent visualization of images, tracings, or specimens: yes (EKG my read: Normal sinus rhythm, rate 100, no ST elevation or depression, no T-wave inversions in consecutive leads. Right knee x-ray my read: No acute fracture or malalignment Right ankle x-ray my read: Bimalleolar fracture noted, no displacement.) Lab results reviewed Radiology results reviewed ED Medication Administration from 08/01/2020 1732 to 08/01/2020 2228 Date/Time Order Dose Route Action Action by 08/01/2020 1845 fentaNYL 100 mcg/2 mL preservative free injection solution 50 mcg 50 mcg IV Given Melita Buckley RN 08/01/2020 2100 sodium chloride 0.9% (bolus) IV solution 500 mL 500 mL IV Stopped Infusion Silverio Gary RN 08/01/2020 1845 sodium chloride 0.9% (bolus) IV solution 500 mL 500 mL IV Given Melita Buckley RN REVIEW OF SYSTEMS: Review of Systems Constitutional: Negative for chills and fever. HENT: Negative for congestion. Respiratory: Negative for shortness of breath. Cardiovascular: Negative for chest pain. Gastrointestinal: Negative for abdominal pain. Genitourinary: Negative for dysuria. Musculoskeletal: Negative for back pain. Positive for right ankle pain Skin: Negative for rash. Neurological: Positive for syncope. Negative for light-headedness. Hematological: Does not bruise/bleed easily. Psychiatric/Behavioral: Negative. PHYSICAL EXAM ED Triage Vitals Temp Temp Source Pulse Resp BP SpO2 O2 Flow Rate (L/min) O2 Device 08/01/20 1741 08/01/20 1741 08/01/20 1737 08/01/20 1741 08/01/20 1737 08/01/20 1737 -- 08/01/20 2301 97.8 F (36.6 C) Oral 101 16 137/71 99 % RA Physical Exam Vitals signs and nursing note reviewed. Constitutional: Appearance: She is well-developed. HENT: Head: Normocephalic and atraumatic. Right Ear: External ear normal. Left Ear: External ear normal. Nose: Nose normal. Mouth/Throat: Mouth: Mucous membranes are moist. Eyes: Conjunctiva/sclera: Conjunctivae normal. Pupils: Pupils are equal, round, and reactive to light. Neck: Musculoskeletal: Normal range of motion and neck supple. Cardiovascular: Rate and Rhythm: Normal rate and regular rhythm. Heart sounds: Normal heart sounds. Pulmonary: Effort: Pulmonary effort is normal. No respiratory distress. Breath sounds: Normal breath sounds. Abdominal: General: Bowel sounds are normal. Palpations: Abdomen is soft. Tenderness: There is no abdominal tenderness. Musculoskeletal: General: No deformity. Comments: There is significant swelling over the lateral malleolus. No medial malleolar tenderness to palpation, there is tenderness of the lateral malleolus. No knee or fibular head TTP. Skin: General: Skin is warm and dry. Neurological: Mental Status: She is alert and oriented to person, place, and time. Coordination: Coordination normal. Comments: No slurred speech or facial droop. Uses all extremities appropriately Psychiatric: Behavior: Behavior normal. PROCEDURES: ORTHOPEDIC INJURY TREATMENT Date/Time: 08/01/2020 9:05 PM Performed by: Lyndon Vogel MD Authorized by: Lyndon Vogel MD Consent: Verbal consent obtained. Risks and benefits: risks, benefits and alternatives were discussed Consent given by: patient Patient understanding: patient states understanding of the procedure being performed Patient consent: the patient's understanding of the procedure matches consent given Imaging studies: imaging studies available Required items: required blood products, implants, devices, and special equipment available Patient identity confirmed: arm band and verbally with patient Time out: Immediately prior to procedure a "time out" was called to verify the correct patient, procedure, equipment, technical support assistant and site/side marked as required. Injury location: ankle Location details: right ankle Injury type: fracture Fracture type: bimalleolar Pre-procedure neurovascular assessment: neurovascularly intact Pre-procedure distal perfusion: normal Pre-procedure neurological function: normal Pre-procedure range of motion: reduced Anesthesia: Local anesthesia used: no Sedation: Patient sedated: no Manipulation performed: no Immobilization: splint Splint type: Lower leg sugar tong splint with posterior slab and flat plate. Supplies used: Ortho-Glass Post-procedure neurovascular assessment: post-procedure neurovascularly intact Post-procedure distal perfusion: normal Post-procedure neurological function: normal Post-procedure range of motion comment: Unable to assess as she is immobilized Patient tolerance: patient tolerated the procedure well with no immediate complications MEDICATIONS & ALLERGIES: No current facility-administered medications on file prior to encounter. Current Outpatient Medications on File Prior to Encounter Medication Sig Dispense Refill aspirin 81 mg enteric coated tablet Take 162 mg by mouth 1 time per day at noon simvastatin (ZOCOR) 40 mg tablet TAKE 1/2 TABLET (20MG) BY MOUTH ONCE DAILY (Patient taking differently: Take 20 mg by mouth 1 time per day ) 45 tablet 0 metFORMIN (GLUCOPHAGE) 500 MG tablet TAKE 2 TABLETS BY MOUTH TWICE A DAY (Patient taking differently: Take 1,000 mg by mouth 2 times a day ) 360 tablet 0 losartan 50 mg tablet TAKE 1 TABLET BY MOUTH ONCE DAILY (Patient taking differently: Take 50 mg by mouth 1 time a day in the morning ) 90 tablet 0 Contour NEXT test strip USE TO TEST BLOOD SUGAR DIRECTED ONCE DAILY NEEDED 100 each 1 magnesium chloride (MAG64) 64 mg enteric coated tablet Take 64 mg by mouth 1 time per day glimepiride (AMARYL) 2 mg tablet Take 2 mg by mouth 1 time a day as needed (for blood sugar >110) Give with food. 90 tablet 0 bismuth subsalicylate (PEPTO-BISMOL) 262 mg/15 mL SUSP Take 30 mL by mouth 3 times a day as needed for diarrhea vitamin C, ascorbic acid, 250 MG tablet Take 250 mg by mouth 1 time per day vitamin D3, cholecalciferol, 50 mcg (2000 unit) tablet Take 50 mcg by mouth 1 time per day cyanocobalamin (VITAMIN B-12) 1000 mcg tablet Take 1,000 mcg by mouth 1 time per day Multiple Vitamins-Minerals (CENTRUM SILVER 50+WOMEN PO) Take 1 tablet by mouth 1 time per day Patient is allergic to Patient has no known allergies. PAST MEDICAL, Family & SURGICAL HISTORY Past Medical History: Diagnosis Date Diabetes mellitus (HCC) Hyperlipidemia Hypertension Past Surgical History: Procedure Laterality Date HERNIA REPAIR History reviewed. No pertinent family history. SOCIAL HISTORY Social History Socioeconomic History Marital status: Spouse name: Not on file Number of children: Not on file Years of education: Not on file Highest education level: Not on file Social Needs Financial resource strain: Not on file Food insecurity Worry: Sometimes true Inability: Sometimes true Transportation needs Medical: Not on file Non-medical: Not on file Tobacco Use Smoking status: Never Smoker Smokeless tobacco: Never Used Substance and Sexual Activity Alcohol use: Never Frequency: Never Drug use: Never Lifestyle Physical activity Days per week: 0 days Minutes per session: 0 min Stress: Not on file Juaquin Vogel MD *This note was created, at least in part, with the use of [employer] Voice Dictation System. Inadvertent typographical errors, due to software recognition problems, may still exist. nupama Bess RN - 08/01/2020 5:43 PM CDT Plan of care includes addressing HEENT, Musculoskeletal and Neurological with attention to witnessedfall. Chief Complaint Patient presents with Fall Patient arrives via [facility] for witnessed fall in [facility]. Patient felt weak and dizzy and fell off ofthe chair in the photo department. 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 She was given OJ and BS are 260 now. Patient states she hit her head as well. documented in this encounter Miscellaneous Notes Care Planning - Niko Grant RN - 08/04/2020 8:46 AM CDT Problem: ACUTE PAIN Goal: CLIENT SATISFACTION: PAIN MANAGEMENT Description: DEFINITION: Extent of positive perception of nursing care to relieve pain. 1=Not at all satisfied, 2=Somewhat satisfied, 3=Moderately satisfied, 4=Very satisfied, 5=Completely satisfied. Outcome: Outcome acceptable for discharge Flowsheets (Taken 08/04/2020 0843) Plan of care reviewed with: Patient Patient Progress: Pain levels day of discharge -08/24 in [facility] with scheduled and PRN analgesics effective at pain control, per pt Problem: CHRONIC PAIN Goal: PAIN CONTROL Description: DEFINITION: Personal actions to control pain. 1=Never demonstrated, 2=Rarely demonstrated, 3=Sometimes demonstrated, 4=Often demonstrated, 5=Consistently demonstrated. Outcome: Outcome acceptable for discharge Flowsheets (Taken 08/04/2020 0843) Plan of care reviewed with: Patient Patient Progress: Denies chronic pain hysical Therapy - Jarrett Alvarez, PT - 08/04/2020 8:40 AM CDT Physical Therapy Orthopedic FELICIA Discharge Note Date: 08/04/2020 Subjective: Alert and oriented. Patient states " I just as soon stay here vs going to a detention." Objective: Gait belt donned for any out of bed activities. Lab Results Component Value Date HEMOGLOBIN 11.2 (L) 08/03/2020 Supine to/from sit: Independent Sit to/from stand: Goes sit to stand from bed and recliner with contact assist. Sitting Balance: Fair Standing Balance: Fair with right knee scooter and stand by assist. Gait: Ambulates 150 ft x 1 and 130 ft x 1 with right knee scooter and contact assist with slow, steady pattern while maintaining NWB right LE. Pain: (0-10 scale) At rest: 0 With Activity: 0 Education: Completed for precautions, use of equipment, home exercise activity and mobility progression. Patient verbalizes understanding of precautions. Equipment: Patient transferring to another inpatient facility-no equipment provided. Assessment: Patient demonstrates safety with mobility, applying precautions as indicated. Patient needs continued reinforcement for safe mobility. Goals: All goals achieved as identified in initial evaluation. Plan: Patient will be discharged to [facility]. Follow-up Physical Therapy Services: [facility] Time Treatment Occurred: 820 Gait: 15 minutes Therapeutic Exercise: 0 minutes Therapeutic Activity: 0 minutes TOTAL TIMED CODES: 15 minutes TREATMENT TOTAL TIME: 15 minutes Jael Ross - Pa Cabrera RN - 08/04/2020 8:15 AM CDT Problem: ACUTE PAIN Goal: CLIENT SATISFACTION: PAIN MANAGEMENT Description: DEFINITION: Extent of positive perception of nursing care to relieve pain. 1=Not at all satisfied, 2=Somewhat satisfied, 3=Moderately satisfied, 4=Very satisfied, 5=Completely satisfied. Flowsheets (Taken 08/04/2020 09) Initial Score: 2 Target Score: 4 Plan of care reviewed with: Patient Patient specific goal for the day: Patient will verbalise pain level of <5 by the end of the shift Patient specific goal for the stay: Patient will utililize ordered medication to decrease pain levelbefore discharge. Achieve goal for stay: By discharge Patient Progress: Patients sleep all night with so signs of discomfort. Jael Ross - Nhung Sheridan RN - 08/03/2020 7:50 PM CDT Problem: ACUTE PAIN Goal: CLIENT SATISFACTION: PAIN MANAGEMENT Description: DEFINITION: Extent of positive perception of nursing care to relieve pain. 1=Not at all satisfied, 2=Somewhat satisfied, 3=Moderately satisfied, 4=Very satisfied, 5=Completely satisfied. Flowsheets (Taken 08/03/20201946) Initial Score: 2 Target Score: 4 Plan of care reviewed with: Patient Patient specific goal for the day: Patient's pain will remain controlled with currently scheduled and prn medications. Patient specific goal for the stay: Reduce the need for pain medication Achieve goal for stay: By discharge Patient Progress: Patient rating pain 7/10 on the pain scale at this time. Medication given see mar.Pain management is in place and educated to patient nursing will continue to monitor. Problem: IMPAIRED PHYSICAL MOBILITY Goal: MOBILITY Description: DEFINITION: Ability to move purposefully in own environment independently with or without assistive device. 1=Severely compromised / Total assistance: Performs less than 25% of activity; 2=Substantially compromised / Maximal assistance: Performs 25-49% of activity; 3=Moderately compromised / Moderate assistance: Performs 50-74% of activity; 4=Mildly compromised / Modified independence: Needs assistive device, supervision, minimal contact,or safety is a concern; 5=Not compromised / Complete independence. Flowsheets (Taken 08/03/2020 1948) Initial Score: 2 Target Score: 4 Plan of care reviewed with: Patient Patient specific goal for the day: walk Patient specific goal for the stay: pass PT/OT Achieve goal for stay: By discharge Patient Progress: Pt is up with 1 with gait belt and fww. PT/OT is following see see notes are Planning - Aleja Machuca RN - 08/03/2020 3:11 PM CDT Problem: ACUTE PAIN Goal: CLIENT SATISFACTION: PAIN MANAGEMENT Description: DEFINITION: Extent of positive perception of nursing care to relieve pain. 1=Not at all satisfied, 2=Somewhat satisfied, 3=Moderately satisfied, 4=Very satisfied, 5=Completely satisfied. 08/03/2020 1510 by Aleja Machuca RN Outcome: NOC Rating 4 Flowsheets (Taken 08/03/2020 1508) Initial Score: 3 Target Score: 5 Plan of care reviewed with: Patient Patient specific goal for the day: Patient's pain will remain controlled with currently scheduled and prn medications. Patient specific goal for the stay: Reduce the need for pain medication Achieve goal for stay: By discharge Patient Progress: Patient received 1 dose of prn Oxycodone IR during shift. Pain otherwise controlled. It was more 'bothersome" then severe pain per pt. 08/03/2020 1453 by Aleja Machuca RN Outcome: NOC Rating 4 hysical Therapy - Jarrett Alvarez, PT - 08/03/2020 12:00 PM CDT Physical Therapy Orthopedic FELICIA Evaluation Date: 08/03/2020 Assessment/Recommendations: Patient tolerates PT evaluation and gait training well. Patient goes supine to sit with stand by assist, transfers with FWW and contact assist and ambulates 120 ft x 2 with right knee scooter and contact assist with recliner. Patient not safe to go directly home at this time on own. Recommend SNF for additional therapy prior to going home. Referring Physician: Aj Ledbetter MD Diagnosis/Surgical Procedure and Date: Bilamalleolar right ankle fracture with ORIF right ankle Significant PMH: Past Medical History: Diagnosis Date Diabetes mellitus (HCC) Hyperlipidemia Hypertension Physician Orders: Evaluate and treat: yes Weight Bearing Status: NWB right LE. Precautions: NWB right LE. Lab Results Component Value Date HEMOGLOBIN 11.2 (L) 08/03/2020 Status Prior to Hospitalization/Surgical Procedure: Current Living Environment: Lives independently in 1 story home. Stairs to Enter Home: 4 Railin Stairs to Bedroom or Bathroom: - Railing: - Ambulation Status: Independent Equipment Owned: walker Patient/Family Concerns: Safety with mobility. Patient Goals: Go directly home without support. Other: Sustained fall with right ankle fracture. Current Status: Cognition: Alert and Oriented Observation: Gait belt donned for any out of bed activities. Immobilizer: right lower leg splinted with RYAN wrap Transfers: Supine to/from Sit: Goes supine to/from sit with stand by assist. Sit to/from Stand: Goes sit to stand from bed and recliner and contact assist. Balance: Sitting: Fair Standing: Fair with right knee scooter. Gait: Patient fit with right knee scooter. Ambulates 120 feet x 2 with right knee scooter and contact assist x 1 with slow, steady pattern while propelling self with left foot. Patient complains of right knee pain with walking extended distances. Stairs: N/t Pain Level: (0-10 scale) At rest: 2 With Activity: 2 Comments: Patient/Family Education: Reviewed role of the physical therapist and discussed anticipated outcomegoals. Other: Family Present during Evaluation: Treatment: Time Treatment Occurred: 8 Evaluation: X Gait: 15 minutes Therapeutic Exercise: 0 minutes Therapeutic Activity: 0 minutes TOTAL TIMED CODES: 15 minutes TREATMENT TOTAL TIME: 30 minutes Assessment: Patient presents with impaired functional mobility post surgical procedure and will benefit with continued PT. Patient may require post acute inpatient recovery time at : SNF/Inpatient Rehab/other. Plan: Follow daily for gait training, therapeutic exercise, therapeutic activity, and education. Goals: By hospital discharge or within 2 - 3 days/hospital discharge. Patient/family involved in developing/progressing goals and treatment plan. Supine to sit with stand by assist. Sit to stand with contact assist. Ambulate 150 feet on level surfaces with contact assist and appropriate assistive device. Appropriate assistive device available for ambulation. Certification dates: 08/03/2020 to: 08/10/2020 CERTIFICATION I certify that the services as described in the above note are furnished while the patient is under my care; a plan for furnishing these services has been established and will be periodically reviewed;the services are required for the patient; and the services are subject to established guidelines. Referring Provider: Dr Ledbetter ccupational Therapy - Codie Hernandez OTR/Cecilia - 08/03/2020 9:38 AM CDT Occupational Therapy Orthopedic Evaluation Admitting Diagnosis: ICD-10-CM 1. Closed bimalleolar fracture of right ankle, initial encounter S82.841A ORTHOPEDIC INJURY TREATMENT vitamin D3, cholecalciferol, 25 mcg (1000 unit) tablet calcium citrate-vitamin D (CITRACAL + VIT D) 315 mg-250 unit tablet Weight bearing status - non-weight bearing 2. Fall, initial encounter W19.XXXA 3. Syncope, unspecified syncope type R55 PMH: Past Medical History: Diagnosis Date Diabetes mellitus (HCC) Hyperlipidemia Hypertension Weight bearing status: NWB right LE SOCIAL/HOME ENVIRONMENT House: one-level with 4 step entry and ramp entrance in garage Lives Alone: Yes Bed/Bath on Main Floor: Yes Bath Setup: Combo Prior Level of Functioning: Independent Adaptive Equipment Available: toilet riser without arms, shower chair, grab bars tub/shower, front-wheeled walker, 4 wheeled walker and power scooter ADLs Dressing: minimal assist for standing balance for LE dressing TRANSFERS Bed: standby assistance Chair: minimal assistance with walker Car: minimal assistance with walker UE FUNCTION: WFL COGNITION: Alert and orientated, Pt did repeat herself at times Pain Level at Rest: 2/10 Pain Level with Activity: 2/10 PATIENT/FAMILY EDUCATION: Transfers Self Fci safety Role of OT Family present during evaluation: none Adaptive Equipment Recommended: to further assess Plan to obtain adaptive equipment: To further assess. Assessment: Patient showing a decrease in ADL/transfer performance and will benefit from continued OT. Plan: See daily M-F for ADL/transfer training/education, assess adpative equipment needs. Recommend: Short term SNF Goals by discharge: Patient will be independent with bed, chair, toilet, car transfers with adaptive equipment as needed. Patient will be independent with tub/shower transfer with adaptive equipment as needed. Patient will be independent with self care skills with adaptive equipment as needed. Patient will be independent for kitchen/home safety. Occupational Therapy Orthopedic Progress Note Treatment Today's Treatment Evaluation Self care/home management: 15 minutes Total for time-based codes: 15 minutes Total treatment time: 30 minutes Evaluation Complexity PMH/Comorbidities that affect Occupational Performance: see PMH up above Occupational Profile/Medical and Therapy History: LOW - Brief history relating to presenting problem Patient Assessment: LOW - 1-3 performance deficits relating to physical, cognitive, psychosocial limitations/restrictions Clinical Decision Making: LOW - Low complexity, limited amount of treatment options, no assessment modification, no comorbidities Evaluation Complexity: Low Treatment provided: Pt laying in bed upon arrival. She performed bed mobility with SBA with increased time and effort. She stood up from the bed with minimal assist using FWW, she was able to maintain NWB. She pivoted to the recliner chair with minimal assist using FWW. Pt was agreeable to coming downto the OT department to practice car transfer. She performed with minimal assist with FWW and cues. Pt returned to recliner, reports fatigue following transfer, requests to return back to room. She returned to room and left sitting up in the chair with phone and call light in reach. Therapist pager #: [phone] Certification Dates: 08/03/2020 to 11/01/20 CERTIFICATION I certify that the services as described in the above note are furnished while the patient is under my care; a plan for furnishing these services has been established and will be periodically reviewed;the services are required for the patient; and the services are subject to established guidelines ase Maximo - Ca Kendrick RN (Dee) - 08/03/2020 8:24 AM CDTCASE MANAGEMENT / SOCIAL SERVICE TRANSITION PLAN - INITIAL ASSESSMENT & FINAL PLAN TRANSITION PLAN: goal is transition to [facility] on Friday 08/[address] [facility] [address] [place], [place] please complete orders per discharge to [facility]ing bed[facility] please fax orders/meds/transfer forms per discharge to Swing bed Nursing please call for nurse to nurse report Nurse # [phone] OPEN REDUCTION INTERNAL FIXATION RIGHT ANKLE (Right Ankle) on 08/02 BARRIERS TO TRANSITION: Awaiting Therapy Recommendations / progress towards goals for safety Medical barriers: pain control COMMENTS / PATIENT AND FAMILY RESPONSE TO PLAN: Discussed with interdisciplinary team. Met with patient at the patient's bedside. Introduced Case Management and role in patient care. Patient lives alone in [place], [place]. Patient was independent with ADLs prior to this admissions. Patient's goal upon discharge is swingbed with family support. Plans to do OPPT or home health at discharge from [facility]. Anticipating discharge tomorrow 08/04 to [facility]. Education provided in regards to anticipated plan of care. Encouraged patient to voice any concerns. Patient voiced understanding. Questions answered. ADMISSION DX: No admission diagnoses are documented for this encounter. PATIENT STATUS: Inpatient Ordered inpatient on 08/01 RELEASE OF INFORMATION: Yes -- verbal for: discharge planning SOURCES OF INFORMATION (See demographics for contact information): Medical Doctor Medical Record Nurse: Bedside Nurse Practitioner/Physician's Box Car Washer Occupational Therapy Patient Physical Therapy CURRENT LIVING SITUATION / LEVEL OF ASSISTANCE: Lives alone Lives in a single family home with 4 stairs to enter. Has no stairs to bedroom/bathroom. COMMUNITY SERVICES: None HEALTHCARE DIRECTIVE: No POWER OF AUTOMOTIVE GLASS SPECIALIST: None FINANCIAL CONCERNS: No Concerns PRIMARY CARE PHYSICIAN: Yes Tawny Benavidez APRN-MENG [phone] / [facility] [id number] : No IS PATIENT'S ADMISSION ASSOCIATED WITH TIA, ISCHEMIC, OR HEMORRHAGIC STROKE?: No LANGUAGE / COMMUNICATION BARRIERS: No PATIENT / SUBSTITUTE DECISION MAKER GOAL UPON TRANSITION: First Choice: Outpatient Therapy: Physical Therapy vs TCU/SWB stay PATIENT CHOICE EDUCATION: Reviewed with Patient/family Medicare coverage requirements for Home Care and/or Half-Way. Not applicable MEDICARE 3 IP MIDNIGHT CRITERIA MET: Inpatient as of 08/01 TRANSITION CHOICES OFFERED: Home Health: Bath Aid, Nurse, Occupational Therapy and Physical Therapy Home: Family/Friend Support Outpatient Therapy: Physical Therapy Transitional Care Swingbed REFERRAL(S) MADE: No RESOURCE(S) PROVIDED: Home Health vs SWB/TCU DOES PATIENT HAVE CLOTHING TO WEAR AT DISCHARGE? Yes ANTICIPATED MODE OF TRANSPORT UPON DISCHARGE: Family Car - family to drive VERIFIED CORRECT PHARMACY IS ENTERED FOR DISCHARGE: No swingbed has own pharmacy they only need a list of the medications METHOD OF PRESCRIBING MEDICATIONS: List of medications to be filled by their pharmacy TRANSITION ROUNDING COMPLETED WITH THE FOLLOWING: Patient / family Criminal Justice Professor Bedside camper assembler RN Discussed in person CURRENT READMISSION RISK SCORE / HANDOFF: Predictive Risk Score Risk of Unplanned Readmission: 12.5 Handoff given: N/A Please refer to readmission risk assessment flowsheet for further details. FINAL TRANSITION PLAN TRANSITION DATE: 08/04/20 TRANSITION TIME: 1030 INTENDED PAYER SOURCE FOR AGENCY: Medicare TRANSITION DESTINATION: [facility] DOES ACCEPTING FACILITY REQUIRE COVID TESTING BEFORE DISCHARGE: N/A TRANSITION TRANSPORTATION: Family Car Daughter to drive, she will be here about 10 am TRANSPORTATION PAYMENT: Not applicable SPECIAL TRANSITION DAY INSTRUCTIONS TO NURSE / MD: [address] MD please [facility] RETAIL ATTENDANT please fax orders/meds/transfer forms per discharge to [facility] please call for nurse to nurse report Nurse # [phone] SIGNED: Roxann Kendrick RN ([place]) [facility] Orthopedics [facility] [address] [email or web address] Care Planning - Doris Decker RN - 08/03/2020 3:39 AM CDT Problem: ACUTE PAIN Goal: CLIENT SATISFACTION: PAIN MANAGEMENT Description: DEFINITION: Extent of positive perception of nursing care to relieve pain. 1=Not at all satisfied, 2=Somewhat satisfied, 3=Moderately satisfied, 4=Very satisfied, 5=Completely satisfied. Flowsheets (Taken 08/03/2020 5722) Initial Score: 3 Target Score: 5 Plan of care reviewed with: Patient Patient specific goal for the day: Manage pain with oral pain medication. Patient specific goal for the stay: Reduce the need for pain medication Achieve goal for stay: By discharge Patient Progress: Patient reports pain 6/10 that scheduled tylenol was given and patient was alrighttrying first before moving to a stronger pain medication. Will contiune to monitor pain levels and use interventions as needed. Problem: CHRONIC PAIN Goal: PAIN CONTROL Description: DEFINITION: Personal actions to control pain. 1=Never demonstrated, 2=Rarely demonstrated, 3=Sometimes demonstrated, 4=Often demonstrated, 5=Consistently demonstrated. Flowsheets (Taken 08/03/2020 7932) Initial Score: 4 Target Score: 5 Plan of care reviewed with: Patient Patient specific goal for the day: patient will report satisfaction with pain management techniques Patient specific goal for the stay: patient will report satisfaction with pain management techniques Achieve goal for stay: By discharge Patient Progress: Patient rates pain 6 0n 1-10 scale. Pain meds given, and patient slept quietly after that. are Planning - Cristo Zuniga RN - 08/02/2020 9:41 PM CDT Problem: ACUTE PAIN Goal: CLIENT SATISFACTION: PAIN MANAGEMENT Description: DEFINITION: Extent of positive perception of nursing care to relieve pain. 1=Not at all satisfied, 2=Somewhat satisfied, 3=Moderately satisfied, 4=Very satisfied, 5=Completely satisfied. Outcome: NOC Rating 5 Flowsheets (Taken 08/02/2020 7744) Plan of care reviewed with: Patient Patient specific goal for the day: Manage pain with oral pain medication. Patient specific goal for the stay: Reduce the need for pain medication Achieve goal for stay: By discharge Patient Progress: Patient reports pain 6/10 that scheduled tylenol was given and patient was alrighttrying first before moving to a stronger pain medication. Will contiune to monitor pain levels and use interventions as needed. linical Team - Willie Bryant RN - 08/02/2020 6:42 PM CDTPatient arrived to unit at 1707 from the PACU. Patient settled in room and oriented to call light/tv control. Rated pain 10/10. VSS. RA. Family at bedside. Educated on diet, fluids, meds, mobility. Patient up to commode and voided at this time. Upon Transfer to [facility], skin assessment completed with STEPHANI Still. Upon skin assessment including pressure points findings include: No skin concerns at this time. Incision present to right lower extremity- dressed and unable to assess. Plan/Intervention: frequent repositioning, keeping skin clean and dry, encourage oral intake. are Planning - Marce Gonzalez RN - 08/02/2020 4:48 PM CDT Problem: RISK FOR INJURY Goal: SURGICAL RECOVERY: IMMEDIATE POST-OPERATIVE Description: DEFINITION: Extent to which an individual achieves physiological baseline function following major surgery requiring anesthesia. 1=Severe deviation from normal range, 2=Substantial deviation from normal range, 3=Moderate deviation from normal range, 4=Mild deviation from normal range, 5=No deviation from normal range. 08/02/2020 1648 by Marce Gonzalez RN Outcome: Outcome acceptable for discharge 08/02/2020 1545 by Marce Gonzalez RN Flowsheets (Taken 08/02/2020 1545) Initial Score: 3 Target Score: 4 Care Planning - Marce Gonzalez RN - 08/02/2020 3:45 PM CDT Problem: RISK FOR INJURY Goal: SURGICAL RECOVERY: IMMEDIATE POST-OPERATIVE Description: DEFINITION: Extent to which an individual achieves physiological baseline function following major surgery requiring anesthesia. 1=Severe deviation from normal range, 2=Substantial deviation from normal range, 3=Moderate deviation from normal range, 4=Mild deviation from normal range, 5=No deviation from normal range. Flowsheets (Taken 08/02/2020 1545) Initial Score: 3 Target Score: 4 Pt to pacu at 1537. She currently states "it hurts" when asked about pain, she states "it's ok" andappears comfortably resting. When asked to rate pain states 01/15" but states does not need pain medication, re-educated on pain scale but I don't think pt understands at this time. Will use adult behavioral scale. PostOp Progress Note - Yovany Bradshaw MD - 08/02/2020 3:08 PM CDTImmediate Post-Operative / Post Procedure Progress Note Att. Phys: Nadia Wharton MD Pt. Type: Inpatient Operative Date: 08/02/2020 Surgeon: Surgeon(s) and Role: * Yovany Bradshaw MD - Primary * Eliel Mar MD - Resident - Assisting Box Car Washer: Maple Products Maker : Tiffanie Bergeron RN Scrub Person : Maribel Gray ST Manager Emergency: Champ De La O PA-C The skilled assistance of my surgical instrument technician (BITA) was necessary for the following activities: positioning of the patient, assistance with the procedure, holding retractors, assistance with holdingreduction, assistance with wound closure, and dressing application. Eliel Mar MD PGY-2 Ortho resident was present and assisted with the surgery. Pre-Operative Diagnosis: Pre-Op Diagnosis Codes: * Ankle fracture, right [S82.891A] Post-Operative Diagnosis: same Anesthesia Type: general Operative Procedure: Procedure(s): OPEN REDUCTION INTERNAL FIXATION RIGHT ANKLE - Wound Class: Clean * No specimens in log * no implants used for procedure Fluids Given: See Anesthesia Record Urine Output: See Anesthesia Record Estimated Blood Loss: 30 mL Drains: none Findings: Very soft bone with drilling Complications: none Postoperative Condition: stable ase Mgmt - Cassie Valdivia RN - 08/02/2020 1:33 PM CDTIn OR. Patient will transfer to [facility] after surgery. (Elida) Vero Valdivia, PATTERN GATER Weekend [employer] Professor [facility] Pager #[phone] are Planning - Clara Novak RN - 08/02/2020 12:19 PM CDT Problem: ACUTE PAIN Goal: CLIENT SATISFACTION: PAIN MANAGEMENT Description: DEFINITION: Extent of positive perception of nursing care to relieve pain. 1=Not at all satisfied, 2=Somewhat satisfied, 3=Moderately satisfied, 4=Very satisfied, 5=Completely satisfied. Flowsheets (Taken 08/02/2020 1218) Initial Score: 3 Target Score: 5 Plan of care reviewed with: Patient Patient specific goal for the day: Patient will report pain well managed with PRN and scheduled painmedication. Patient specific goal for the stay: Patient will report pain well managed with PRN and scheduled PO pain medication. Achieve goal for stay: By discharge Patient Progress: Patient reports minimal pain, managed with scheduled acet. hysical Therapy - Yovany Charlton, PT - 08/02/2020 10:43 AM CDTPT will hold evaluation this date as patient to go to OR for right ankle fracture repair. Acute PT will continue to follow and check on patient again 08/03/20. Yovany Charlton PT [facility] Pager [phone] Occupational Therapy - Fabiana Lua OTR/L - 08/02/2020 8:32 AM CDTOT orders received and acknowledged. Per chart review pt has planned procedure this date for a surgical repair of the right ankle fracture. OT will follow-up post procedure to complete the initial evaluation as able/appropriate. Fabiana Lua OTR/L Pager: [phone] are Planning - Faisal Pryor RN - 08/02/2020 6:09 AM CDT Problem: ACUTE PAIN Goal: CLIENT SATISFACTION: PAIN MANAGEMENT Description: DEFINITION: Extent of positive perception of nursing care to relieve pain. 1=Not at all satisfied, 2=Somewhat satisfied, 3=Moderately satisfied, 4=Very satisfied, 5=Completely satisfied. Outcome: NOC Rating 4 Flowsheets (Taken 08/02/2020 0500) Patient specific goal for the day: patient will promptly report pain to nursing staff Patient specific goal for the stay: patient will have successful surgery and return to baseline Patient Progress: A&Ox4 VSS on RA. Tele running NSR in the 80s-90s tylenol given x1 per patient preference for 4/10 pain in R. ankle. CMS intact. Plan for surgery today. Will report to oncoming nurse. Clinical Team - Faisal Pryor RN - 08/02/2020 12:13 AM CDT Upon [facility], skin assessment completed with Charlene Alfaro RN Upon skin assessment including pressure points findings include: no significant findings Plan/Intervention: skin care per unit protocol Clinical Team - Faisal Pryor RN - 08/01/2020 11:30 PM CDTA&Ox4. VSS on RA. Tele running sinus tach in the 100s. Denies pain, shortness, of breath, numbness, and tingling. Splint and ryan wrap in place on right lower extremity. Leg elevated. CMS intact. Fluids running at 150ml/hr Will continue monitor. Clinical Team - Josy Alfaro RN - 08/01/2020 11:20 PM CDTPatient is for OR tomorrow with Dr. Bradshaw (Surgical repair of right ankle fracture with hardware). per Notes, she is on bed rest. Clarified orders with Dr. Derek Mar. Patient can use commode or havebathroom privileges as long as she wont fall. Nursing to assess patient every time she gets up, bed rest or bathroom privileges as appropriate. linical Team - Faisal Pryor RN - 08/01/2020 10:45 PM CDTArrived at 2228 accompanied by Family. Admitted for fractured ankle & evaluation/treatment of fall. Denies complaints of dizziness, tingling, nausea, vomiting, shortness of breath, and pain. Settled in room CDU12 and oriented to call light, bed/tv control. Refer to Patient Admission Education. Dr. Dav Jackson notified of patients arrival. documented in this encounter Plan of Treatment Date Type Specialty Care Team Description 08/11/2020 Office Visit Orthopedics Armani Montoya PA [address] [place] [address] [phone] 09/29/2020 Office Visit Orthopedics Yovany Bradshaw MD [address] [place] [address] [phone] documented as of this encounter Implants Implanted Type Area Shagger Device Shelf Model / Identifier Expiration Serial / Date Lot Screw Cncls Part Thrd 4x45mm N 207.045 Ea1 - [id number] Ortho Ri ght: J&J DEPUY 207.045 / Implanted: Qty: 1 on 08/02/2020 by Yovany Bradshaw MD at [facility] Other ANKLE SYNTHES / Screw Va Lk T8 Star 2.7x14mm N .014 Ea1 - [id number] Ortho Right: J[employer]J DEPUY .014 / Implanted: Qty: 1 on 08/02/2020 by Yovany Bradshaw MD at [facility] Other ANKLE SYNTHES / Plate Fib Lat Dist 2.7 Rt 4hl N 118.402 Ea1 - [id number] Orth o Right: J[employer]J DEPUY 118.402 / Implanted: Qty: 1 on 08/02/2020 by Yovany Bradshaw MD at [facility] Other ANKLE SYNTHES / Screw Bam Slftp 3.5x18mm N 204.818 Ea1 - [id number] Ortho Right: J[employer]J DEPUY 204.818 / Implanted: Qty: 1 on 08/02/2020 by Yovany Bradshaw MD at [facility] Other ANKLE SYNTHES / Screw Cncls Part Thrd 4x45mm N 207.045 Ea1 - [id number] Ortho Ri ght: J&J DEPUY 207.045 / Implanted: Qty: 1 on 08/02/2020 by Yovany Bradshaw MD at [facility] Other ANKLE SYNTHES / Screw Va Lk T8 Star 2.7x18mm N 018 Ea1 - [id number] Ortho Right: J[employer]J DEPUY 018 / Implanted: Qty: 1 on 08/02/2020 by Yovany Bradshaw MD at [facility] Other ANKLE SYNTHES / Screw Va Lk T8 Star 2.7x14mm N 014 Ea1 - [id number] Ortho Right: J&J DEPUY 014 / Implanted: Qty: 1 on 08/02/2020 by Yovany Bradshaw MD at [facility] Other ANKLE SYNTHES / Screw Va Lk T8 Star 2.7x14mm N 014 Ea1 - [id number] Ortho Right: J&J DEPUY 014 / Implanted: Qty: 1 on 08/02/2020 by Yovany Bradshaw MD at [facility] Other ANKLE SYNTHES / Screw Va Lk T8 Star 2.7x18mm N 018 Ea1 - [id number] Ortho Right: J&J DEPUY 018 / Implanted: Qty: 1 on 08/02/2020 by Yovany Bradshaw MD at [facility] Other ANKLE SYNTHES / Screw Va Lk T8 Star 2.7x18mm N .018 Ea1 - [id number] Ortho Right: J&J DEPUY 018 / Implanted: Qty: 1 on 08/02/2020 by Yovany Bradshaw MD at [facility] Other ANKLE SYNTHES / documented as of this encounter Procedures Procedure Name Priority Date/Time Associated Comments Diagnosis GLUCOSE BY METER, POCT Routine 08/04/2020 6:14 R esults for this AM CDT procedure are i n the results section. COLLECT AND HOLD Routine 08/04/2020 5:54 Results for this LAVENDER (EDTA) TOP AM CDT procedur e are in TUBE the results section. RENAL FUNCTION PANEL Routine 08/04/2020 5:54 Res ults for this AM CDT procedure are i n the results section. GLUCOSE BY METER, POCT Routine 08/03/2020 9:43 R esults for this PM CDT procedure are i n the results section. SARS-COV-2, INFLUENZA STAT 08/03/2020 8:00 Re sults for this A+B, AND/OR RSV PM CDT procedure ar e in NUCLEIC ACID TESTING the res ults PANEL section. GLUCOSE BY METER, POCT Routine 08/03/2020 5:10 R esults for this PM CDT procedure are i n the results section. GLUCOSE BY METER, POCT Routine 08/03/2020 12:46 R esults for this PM CDT procedure are i n the results section. HEMOGLOBIN Routine 08/03/2020 11:30 Results for this AM CDT procedure are i n the results section. RENAL FUNCTION PANEL Routine 08/03/2020 11:30 Res ults for this AM CDT procedure are i n the results section. GLUCOSE BY METER, POCT Routine 08/03/2020 6:34 R esults for this AM CDT procedure are i n the results section. GLUCOSE BY METER, POCT Routine 08/02/2020 9:09 R esults for this PM CDT procedure are i n the results section. GLUCOSE BY METER, POCT Routine 08/02/2020 5:55 R esults for this PM CDT procedure are i n the results section. XRAY C-ARM Routine 08/02/2020 3:07 Results for this PM CDT procedure are i n the results section. OPEN REDUCTION 08/02/2020 1:21 Ankle fracture, INTERNAL FIXATION PM CDT right ANKLE GLUCOSE BY METER, POCT Routine 08/02/2020 12:17 R esults for this PM CDT procedure are i n the results section. ECHO ADULT COMPLETE Routine 08/02/2020 9:42 Resu lts for this AM CDT procedure are i n the results section. LAB ONLY-COMPLETE Routine 08/02/2020 5:42 Result s for this BLOOD COUNT WITH AM CDT procedure a re in DIFFERENTIAL the results section. GLUCOSE BY METER, POCT Routine 08/02/2020 5:42 R esults for this AM CDT procedure are i n the results section. BASIC METABOLIC PANEL Routine 08/02/2020 5:42 Re sults for this AM CDT procedure are i n the results section. LAB ONLY-COMPLETE Routine 08/02/2020 5:42 Result s for this BLOOD COUNT WITH AM CDT procedure a re in DIFFERENTIAL the results section. EKG Routine 08/01/2020 11:15 Results for this PM CDT procedure are i n the results section. GLUCOSE BY METER, POCT Routine 08/01/2020 10:57 R esults for this PM CDT procedure are i n the results section. CT HEAD WITHOUT STAT 08/01/2020 8:03 Results for this CONTRAST PM CDT procedure are i n the results section. XRAY ANKLE MIN 3 VIEWS BETTY 08/01/2020 7:41 R esults for this RT PM CDT procedure are i n the results section. XRAY KNEE MIN 4 VIEWS BETTY 08/01/2020 7:40 Re sults for this RT PM CDT procedure are i n the results section. EKG STAT 08/01/2020 7:04 Results for this PM CDT procedure are i n the results section. LAB ONLY-COMPLETE STAT 08/01/2020 6:44 Result s for this BLOOD COUNT WITH PM CDT procedure a re in DIFFERENTIAL the results section. PROTIME/INR STAT 08/01/2020 6:44 Results for this PM CDT procedure are i n the results section. TROPONIN I STAT 08/01/2020 6:44 Results for this PM CDT procedure are i n the results section. COMPREHENSIVE STAT 08/01/2020 6:44 Results fo r this METABOLIC PANEL PM CDT procedure ar e in the results section. LAB ONLY-COMPLETE STAT 08/01/2020 6:44 Result s for this BLOOD COUNT WITH PM CDT procedure a re in DIFFERENTIAL the results section. ORTHOPEDIC INJURY Routine 08/01/2020 6:25 Closed bimalleolar Results for this TREATMENT PM CDT fracture of right procedure are in ankle, initial the results encounter section. documented in this encounter Results GLUCOSE BY METER, POCT (08/04/2020 6:14 AM CDT) Pathologist Sig nature Glucose POC 118 (H) 70 - 99 mg/dL [facility] Specimen Blood - Blood specimen (specimen) Performing Organization Address City/State/Zipcode Phone Number [facility] [address] [place] [address] [place] [address] [phone] COLLECT AND HOLD LAVENDER (EDTA) TOP TUBE (08/04/2020 5:54 AM CDT) Collect and Hold Comment: RECEIVED [facility] Specimen Blood - Blood specimen (specimen) Performing Organization Address [facility] Phone Number [facility] [address] [place] [address] RENAL FUNCTION PANEL (08/04/2020 5:54 AM CDT) [facility] Glucose 105 (H) 70 - 100 mg/dL [facility] BUN 11 6 - 22 mg/dL [facility] Creatinine 1.03 0.60 - 1.10 [facility] mg/[facility] BUN/Creatinine Ratio 10.7 10.0 - 25.0 [facility] Sodium 140 135 - 145 meq/L [facility] Potassium 3.7 3.5 - 5.3 meq/L [facility] Chloride 104 99 - 110 meq/L [facility] CO2 26 20 - 29 meq/L [facility] Anion Gap with K 14 6 - 20 meq/L [facility] Calcium 8.8 8.5 - 10.5 [facility] mg/dL [place] Phosphorus 3.6 2.5 - 4.5 mg/dL [facility] Albumin 3.3 (L) 3.5 - 5.0 g/dL [facility] Corrected Calcium 9.4 8.5 - 10.5 [facility] mg/dL [place] Age 89 Years [facility] eGFR Non- 51 (L) >=60 [facility] mL/min/1.73m2 [place] eGFR 61 >=60 [facility] mL/min/1.73m2 [place] Specimen Blood - Blood specimen (specimen) Performing Organization Address [facility] Cent[facility] Phone Number [facility] [address] [place], [place] [address] GLUCOSE BY METER, POCT (08/03/2020 9:43 PM CDT) [facility] Glucose POC 160 (H) 70 - 99 mg/dL [facility] Specimen Blood - Blood specimen (specimen) Performing Organization Address [facility] Cent[facility]ode Phone Number [facility] [address] [place] [address] SARS-COV-2, INFLUENZA A+B, AND/OR RSV NUCLEIC ACID TESTING PANEL (08/03/2020 8:00 PM CDT) Pathologist Sig [facility] SARS-CoV-2 Not Detected Not Detected [facility] Specimen Respiratory - Nasopharyngeal swab (speci men) Narrative Performed At Please read entire report. Results for Influenza A and B or [facility] RSV may also be available depending on which viruses y our provider selected for testing. Your Covid-19 test is negative: 1)Avoiding close contact is s till recommended. 2)Cover your coughs and snee zes. 3)Wash your hands often with soap and wate r for at least 20 seconds or use an alcohol-based piano accompanist containing over 60% alcohol. Avoid touch ing your face. 4)Avoid sharing personal household items, including dishes, cups, utensils, towels, clothing, or bedding. These items should be cleaned thoroughly with soap and water after use. Clean all "high touch" surfaces i n your home daily. 5) Monitor your symptoms. Contact your provider if you are feeling worse. If you have shortness of breath or difficulty breathing, call 911. This assay is for in vitro diagnostic use under FDA Emergency Use Authorization only. Optimal performance of this test requires appropriate specimen collection, storage, and transport to the [facility] site. Detection of SARS-CoV-2 RNA may be affected by sample collection methods, patient factors (eg, presence of symptoms), and/or stage of infection. False-negative results may arise from degradation of v iral RNA during shipping/storage. Results should be interpreted by a trained professiona l in conjunction with the patient s history and clinical signs and symptoms, and epidemiological risk factors. Negative (Not Detected) results do not preclude infect ion with the SARS-CoV-2 virus and should not be the sole b asis of patient treatment/management or public health decis ion. Follow up testing should be performed according to the current CDC recommendations. This test was performed by polymerase chain reaction ( PCR) on the GeneXpert instrument. Performing Organization Address City/State/Zipcode Phone Number [facility] [address] [place] [address] GLUCOSE BY METER, POCT (08/03/2020 5:10 PM CDT) Pathologist Sig nature Glucose POC 124 (H) 70 - 99 mg/dL [facility] Specimen Blood - Blood specimen (specimen) Performing Organization Address City/State/Zipcode Phone Number [facility] [address] [place] [address] GLUCOSE BY METER, POCT (08/03/2020 12:46 PM CDT) Pathologist Sig nature Glucose POC 133 (H) 70 - 99 mg/dL [facility] Specimen Blood - Blood specimen (specimen) Performing Organization Address [facility]ercotn Phone Number [facility] [address] [place] [address] RENAL FUNCTION PANEL (08/03/2020 11:30 AM CDT) Pathologist Sig [facility] Glucose 180 (H) 70 - 100 mg/dL [facility] BUN 10 6 - 22 mg/dL [facility] Creatinine 1.31 (H) 0.60 - 1.10 [facility] mg/dL [place] BUN/Creatinine Ratio 7.6 (L) 10.0 - 25.0 [facility] Sodium 140 135 - 145 meq/L [facility] Potassium 3.8 3.5 - 5.3 meq/L [facility] Chloride 103 99 - 110 meq/L [facility] CO2 24 20 - 29 meq/L [facility] Anion Gap with K 17 6 - 20 meq/L [facility] Calcium 9.4 8.5 - 10.5 [facility] mg/dL [place] Phosphorus 4.2 2.5 - 4.5 mg/dL [facility] Albumin 3.7 3.5 - 5.0 g/dL [facility] Corrected Calcium 9.6 8.5 - 10.5 [facility] mg/dL [place] Age 89 Years [facility] eGFR Non- 38 (L) >=60 [facility] Ghanaian mL/min/1.73m2 [place] eGFR 47 (L) >=60 [facility] Ghana[place] mL/min/1.73m2 [place] Specimen Blood - Blood specimen (specimen) Performing Organization Address [facility] Centercode Phone Number [facility] [address] [place] [address] HEMOGLOBIN (08/03/2020 11:30 AM CDT) Pathologist Sig nature Hemoglobin 11.2 (L) 11.5 - 15.8 g/dL [facility] Specimen Blood - Blood specimen (specimen) Performing Organization Address [facility]/Zipcode Phone Number [facility] [address] [place], [place] [address] GLUCOSE BY METER, POCT (08/03/2020 6:34 AM CDT) Pathologist Sig nature Glucose POC 87 70 - 99 mg/dL [facility] Specimen Blood - Blood specimen (specimen) Performing Organization Address [facility]ercode Phone Number [facility] [address] [place] [address] GLUCOSE BY METER, POCT (08/02/2020 9:09 PM CDT) Pathologist Sig nature Glucose POC 157 (H) 70 - 99 mg/dL [facility] Specimen Blood - Blood specimen (specimen) Performing Organization Address [facility] Centercode Phone Number [facility] [address] [place] [address] GLUCOSE BY METER, POCT (08/02/2020 5:55 PM CDT) Pathologist Sig nature Glucose POC 128 (H) 70 - 99 mg/dL [facility] Specimen Blood - Blood specimen (specimen) Performing Organization Address [facility]ercotn Phone Number [facility] [address] [place] [address] XRAY C-ARM LESS THAN ONE HR (08/02/2020 3:07 PM CDT) Specimen Narrative Performed At Fluoroscopic image(s) submitted. Imaging [facility] assistance provided by Radiology. Performing Organization Address [facility]/Zipcode Phone Number [facility] [address] [place] [address] GLUCOSE BY METER, POCT (08/02/2020 12:17 PM CDT) Pathologist Sig nature Glucose POC 108 (H) 70 - 99 mg/dL O POINT OF CARE TESTING Specimen Blood - Blood specimen (specimen) Performing Organization Address [facility]/Zipcode Phone Number [facility] POINT OF [address] [place] [address] CARE TESTING ECHO ADULT COMPLETE (08/02/2020 9:42 AM CDT) Specimen Narrative Performed At This result has an attachment that is no t available. [facility] Patient: RICKIE SCHMID MR#: [id number] Exam Date: 08/02/2020 Transthoracic Echocardiogram [facility] [address] [place] [address] BP: 125/56 mmHg HR: 98 bpm : 1930 Exam Location: Bedside Height: 65.00 "(165.1 cm) Age: 89 year(s) Patient Room: [place] [address] Weight: 119 lbs.(53.98 kg) Gender: Female Patient Status: Inpatient BSA: 1.59 m2 Neon Glass Bender: ELEAZAR LAWRENCE RDCS Reading Physician: AILYN JI MD Ordering Physician: DAV JACKSON MD Procedure Indication(s): Syncope Examination: TTE Complete 2D(m-mode), Complete Spectral Doppler, Color Doppler Exam Comments The cardiac rhythm is normal sinus, Patient had broken leg unable to roll on left side Conclusions Left Ventricle: Normal left ventricular systolic functio n. The ejection fraction is visually estimated to be 65 %. Interventricular septal thickness in 2D is 11.0 mm. Posterior wall thickness in 2D is 9. 0 mm. Left Atrium: Normal left atrial size. Mitral Valve: Mild mitral regurgitation. Right Ventricle: Normal right ventricular systolic function. IVC: Normal IVC size with normal respirophasic changes. Pericardium: No significant pericardial effusion. Comparison Study Comparison Study: No previous echo was available for c omparison Findings Left Ventricle: Normal left ventricular size. Mildly inc reased ventricular spetal wall thickness. Normal left ventricular systolic function. The ejection fraction is visually estimated to be 65 %. There are no left ventricular regional wall motion abnormalities. There is fusion of early and atrial contributions to left ventricular filling. Interventricular septal thickness in 2D is 11.0 mm. Posterior wall thickness in 2D is 9.0 mm. IVS: Mildly increased left ventricular septal thickness. Left Atrium: Normal left atrial size. Aortic Valve: The aortic valve is tricuspid. Mild aort ic cuspal thickening. No significant aortic regurgitation. No aortic stenosis. Aorta: The sinus of valsalva is normal in size measuring 35.0 mm. The ascending aorta is normal in size measuring 37.0 mm. Mitral Valve: Mild mitral leaflet thickening. There is mitral annular calcification. Mild mitral regurgitation. No mitral stenosis. IAS: Atrial septum is not well visualized. Right Ventricle: Normal right ventricular size. Normal ri ght ventricular systolic function. Normal right ventricular wall thickness. Right Atrium: Normal right atrial size by visual assessment. Tricuspid Valve: Normal tricuspid valve structure. Trivial tricuspid re gurgitation. Pulmonic Valve: Normal pulmonary valve structure. Trivia l pulmonary regurgitation. No pulmonary stenosis. IVC: Normal IVC size with normal respirophasic changes. Pericardium: No significant pericardial effusion. Measurements Left Ventricle Aortic Valve Label Value Normal Value Label Value Normal Value LVDd, 2D 32.1 mm LVOT Vmax 96 cm/s LVDs, 2D 19 mm AV Vmax 116 cm/s FS, 2D 41 % LVOTd 20 mm LVEDV, 2D 41 ml LVOT VTI 18.6 cm LVESV, 2D 11 ml LVOT PGmax 4 mmHg LVEDVI, 2D 25.8 ml/m 2 AV Vmean 91 cm/s LVESVI, 2D 6.9 ml/m2 AV VTI 23.9 cm Stroke Index 36.48 AV PGmax 5 mmHg ml/m-sq AV PGmean 4 mmHg Cardiac Output 5.68 L/min [place] (Vmax) 2.6 cm-sq Cardiac Index 3.57 AV Vmax, Caliper 116 cm/s L/min/m-sq [place] (VTI) 2.4 cm-sq IVSd, 2D 11 mm Obstructive Index 0.83 LVPWd, 2D 9 mm (Vmax) Left Atrium Obstruction Index 0.78 Label Value Normal Value (VTI) LADs Long. 49 mm Tricuspid Valve Aorta Label Value Normal Value Label Value Normal Value TR Vmax 206 cm/s Ao Asc 37 mm TR Pmax 17 mmHg Ao Sinus, 2D 35 mm Pulmonic Valve Heart Rate Label Value Normal Value Label Value Normal Value PV Vmax 63 cm/s Heart Rate 98 bpm PV PGmax 2 mmHg Procedure Note Interface, Inc Results No Pull Forward - 08/02/2020 11:01 AM CDT Patient: RICKIE SCHMID MR#: [id number] Exam Date: 08/02/2020 Transthoracic Echocardiogram [facility] [address] [place] [address] BP: 125/56 mmHg HR: 98 bpm : 1930 Tenzin omalley Location: Bedside Height: 65.00 "(165.1 cm) Age: 89 year(s) Pat ient Room: [place] [address] Weight: 119 lbs.(53.98 kg) Gender: Female Pat ient Status: Inpatient BSA: 1.59 m2 Neon Glass Bender: ELEAZAR YI RDCS Reading Physician: JONATHON JI MD Ordering Physician: DAV JACKSON MD Procedure Indication(s): Syncop e Examination: TTE Co mplete 2D(m-mode), Complete Spectral Doppler, Color Doppler Exam Comments The ca rdiac rhythm is normal sinus, Patient had broken leg unable to roll on left side Conclusions Left Ventricle: Normal left ventricular systolic functio n. The ejection fraction is visually estimated to be 65 %. Interventricular septal thickness in 2D is 11.0 mm. Posterior wall thickne ss in 2D is 9.0 mm. Left Atrium: Normal left atrial size. Mitral Valve: Mild mitral regurgitation. Right Ventricle: Normal right ventricular systolic functi on. IVC: Normal IVC size with normal respirophasi c changes. Pericardium: No significant pericardial effusion. Comparison Study Comparison Study: No previous echo was a vailable for comparison Findings Left Ventricle: Normal left ventricular size. Mildly inc reased ventricular spetal wall thickness. Normal left ventricular systolic function. The ejection fraction is visually estimated to be 65 %. There are no left ventricular regional wall motion abnormalities. There is fusion of early and atrial contributions to left ventricular filling. Interventricular septal thickness in 2D is 11.0 mm. Posterior wall thickness in 2D is 9.0 mm. IVS: Mildly increased left ventricular septal thickness. Left Atrium: Normal left atrial size. Aortic Valve: The aortic valve is tricuspid. Mild aort ic cuspal thickening. No significant aortic regurgitation. No aortic stenosis. Aorta: The sinus of valsalva is normal in size measuring 35.0 mm. The ascending aorta is normal in size measuring 37.0 mm. Mitral Valve: Mild mitral leaflet thickening. There is mitral annular calcification. Mild mitral regurgitation. No mitral stenosis. IAS: Atrial septum is not well visualized. Right Ventricle: Normal right ventricular size. Normal ri ght ventricular systolic function. Normal right ventricular wall thickness. Right Atrium: Normal right atrial size by visual asses sment. Tricuspid Valve: Normal tricuspid valve structure. Trivia l tricuspid regurgitation. Pulmonic Valve: Normal pulmonary valve structure. Trivia l pulmonary regurgitation. No pulmonary stenosis. IVC: Normal IVC size with normal respirophasi c changes. Pericardium: No significant pericardial effusion. Measurements Left Ventricle Aortic Valve Label Value Norm al Value Label Value Normal Value LVDd, 2D 32.1 mm LVOT Vmax 96 cm/s LVDs, 2D 19 mm AV Vmax 116 cm/s FS, 2D 41 % LVOTd 20 mm LVEDV, 2D 41 ml LVOT VTI 18.6 cm LVESV, 2D 11 ml LVOT PGmax 4 mmHg LVEDVI, 2D 25.8 ml/m2 AV Vmean 91 cm/s LVESVI, 2D 6.9 ml/m2 AV VTI 23.9 cm Stroke Index 36.48 AV PGmax 5 mmHg ml/m-sq AV PGmean 4 mmHg Cardiac Output 5.68 L/min [place] (Vmax) 2.6 cm-sq Cardiac Index 3.57 AV Vmax, Caliper 116 cm/s L/min/m-sq [place] (VTI) 2.4 cm-sq IVSd, 2D 11 mm Obstructive Index 0.83 LVPWd, 2D 9 mm (Vmax) Left Atrium Obstruction Index 0.78 Label Value Norm al Value (VTI) LADs Long. 49 mm Tricuspid Valve Aorta Label Value Normal Value Label Value Norm al Value TR Vmax 206 cm/s Ao Asc 37 mm TR Pmax 17 mmHg Ao Sinus, 2D 35 mm Pulmonic Valve Heart Rate Label Value Normal Value Label Value Norm al Value PV Vmax 63 cm/s Heart Rate 98 bpm PV PGmax 2 mmHg Performing Organization Address City/State/Zipcode Phone Number [facility] [place], [place] GLUCOSE BY METER, POCT (08/02/2020 5:42 AM CDT) [facility] Glucose POC 98 70 - 99 mg/dL O POINT OF CARE TESTING Specimen Blood - Blood specimen (specimen) Performing Organization Address City/[facility]/Zipcode Phone Number [facility] POINT OF [address] [place] [address] CARE TESTING LAB ONLY-COMPLETE BLOOD COUNT WITH DIFFERENTIAL (08/02/2020 5:42 AM CDT) Pathologist Sig nature WBC 9.4 4.0 - 11.0 K/uL [address] RBC 3.40 (L) 3.80 - 5.[address] M/uL Hemoglobin 10.0 (L) 11.5 - 15.[address] g/dL Hematocrit 30.6 (L) 35.0 - 45.0 % [address] MCV 90.0 80.0 - 98.[address] MCH 29.4 25.5 - 34.[address] MCHC 32.7 31.5 - 36.[address] g/dL RDW-CV 13.3 11.5 - 15.5 % [address] RDW-SD 43.8 35.5 - 50.[address] Platelet Count 240 140 - 400 K/uL [address] MPV 9.9 8.5 - 12.[address] Seg Neut Absolute 6.2 1.8 - 8.0 K/uL [address] Lymphocytes Absolute 1.8 0.8 - 4.1 K/uL [place] [address] [facility]INI [facility] Monocytes Absolute 1.3 (H) 0.0 - 1.0 K/uL [address] Eosinophils Absolute 0.1 0.0 - 0.7 K/uL [place] [address] [facility] Basophil Absolute 0.0 0.0 - 0.2 K/uL [address] Immature Granulocyte 0.02 0.00 - 0.[address] Absolute K/uL Neutrophils Abs. 6,200 /uL [address] (Segs and Bands) Neutrophils Percent 66.1 % [address] Lymphocytes Percent 19.3 % [address] Monocytes Percent 13.4 % [address] Immature Granulocyte 0.2 % [address] Percent Eosinophils Percent 0.6 % [place] [address] [facility] Basophil Percent 0.4 % [address] Nucleated RBC 0 /[address] Specimen Blood - Blood specimen (specimen) Performing Organization Address [facility] [place] Phone Number [address] [place] [address] BASIC METABOLIC PANEL (08/02/2020 5:42 AM CDT) [facility] Glucose 107 (H) 70 - 100 mg/dL [address] BUN 15 6 - 22 mg/dL [address] Creatinine 0.99 0.60 - 1.[address] mg/dL BUN/Creatinine Ratio 15.2 10.0 - 25.[address] Sodium 137 135 - 145 meq/L [address] Potassium 3.8 3.5 - 5.3 meq/L [address] Chloride 104 99 - 110 meq/L [address] CO2 26 20 - 29 meq/L [address] Anion Gap with K 11 6 - 20 meq/L [address] Calcium 8.8 8.5 - 10.5 mg/dL [address] Age [address] eGFR Non- 53 (L) >=[address] Ghanaian mL/min/1.73m2 eGFR 64 >=[address] mL/min/1.73m2 Specimen Blood - Blood specimen (specimen) Performing Organization Address [facility] Phone Number [address] [place] [id number] EKG (08/01/2020 11:15 PM CDT)Only the most recent of2 resultswithin the time period is included. [facility] EKG [facility] [facility] Sinus tachycardia Possible Left atrial enlargement Nonspecific ST and T wave abnormality Abnormal ECG Ventricular Rate: 107 BPM Atrial Rate: 107 BPM P-R Interval: 188 ms QRS Duration: 102 ms Q-T Interval: 340 ms QTc Calculation(Bazett): 453 ms Calculated P [place]: 74 degrees Calculated R [place]: 11 degrees Calculated T [place]: 81 degrees Specimen Narrative Performed At This result has an attachment that is no t available. Performing Organization Address [facility] [place] Number [facility] GLUCOSE BY METER, POCT (08/01/2020 10:57 PM CDT) Pathologist Sig nature Glucose POC 179 (H) 70 - 99 mg/dL O POINT OF CARE TESTING Specimen Blood - Blood specimen (specimen) Performing Organization Address City/State/Zipcode Phone Number [facility] POINT OF [address] [place] [address] HEAD WITHOUT CONTRAST (08/01/2020 8:03 PM CDT) Specimen Narrative Performed At [facility] Patient Name: RICKIE SCHMID Date of : 1930 Procedure: CT HEAD WITHOUT CONTRAST Date of Service: 08/01/2020 EXAM: CT HEAD WITHOUT CONTRAST INDICATION: Female, 89 years year old patient, fall, hit head COMPARISON(S): None Available TECHNIQUE: Transaxial CT imaging of the brain was p erformed without administration of intravenous contrast material. Coron al and sagittal reformatted images were generated. FINDINGS: Normal soft tissue structures. No acute calvarial fracture. Normal size of the ventricles and extra-axial spaces f or the patient's age. Normal cerebellum. The cerebellar tonsils are n ormally positioned. Normal white matter tracts o f the supratentorial brain. Normal basal ganglia. Normal thalami. No rmal brainstem. There is no acute intracranial hemorrhage. There are n o findings of an acute ischemic infarction. No demonstrated orbital abnormality, within the constr aints of a routine brain study. Normal visualized paranasal sinuses. Mast oid air cells are clear bilaterally. IMPRESSION CT BRAIN: Normal unenhanced CT scan of the brain. There is no ac nadeem infarct. There is no acute intracranial hemorrhage. Finalized by: Tripp Tilley MD on 021 8:25 PM CDT Patient/Procedure Information: [facility] MRN/NOELLE: [id number] Order Number: [id number] Accession Number: [id number] Ordering Provider: LYNDON VOGEL Authorizing Provider: LYNDON VOGEL Procedure Note Interface, Radiantres - 08/01/2020 8:27 PM CDT Patient Name: RICKIE SCHMID Date of : 1930 Procedure: CT HEAD WITHOUT CONTRAST Date of Service: 08/01/2020 EXAM: CT HEAD WITHOUT CONTRAST INDICATION: Female, 89 years year old p atient, fall, hit head COMPARISON(S): None Available TECHNIQUE: Transaxial CT imaging of th e brain was performed without administration of intravenous contrast material. Coronal and sagittal reformatted images were generated. FINDINGS: Normal soft tissue structures. No acute calvarial fracture. Normal size of the ventricles and extra- axial spaces for the patient's age. Normal cerebellum. The cerebellar tonsils are normally positioned. Normal white matter tracts of the supratentorial brain. Normal basal ganglia. Normal thalami. No rmal brainstem. There is no acute intracranial hemorrhag e. There are no findings of an acute ischemic infarction. No demonstrated orbital abnormality, wit hin the constraints of a routine brain study. Normal visualized paranasal sinuses. Mastoid air cells are clear bilaterally. IMPRESSION CT BRAIN: Normal unenhanced CT scan of the brain. There is no acute infarct. There is no acute intracranial hemorrhage. Finalized by: Tripp Tilley MD on 021 8:25 PM CDT Patient/Procedure Information: [facility] MRN/NOELLE: [id number] Order Number: [id number] Accession Number: [id number] Ordering Provider: LYNDON VOGEL Authorizing Provider: LYNDON VOGEL Performing Organization Address City/State/Zipcode Phone Number [id number] XRAY ANKLE MIN 3 VIEWS RT (08/01/2020 7:41 PM CDT) Specimen Narrative Performed At [facility] Patient Name: RICKIE SCHMID Date of : 1930 Procedure: XRAY ANKLE MIN 3 VIEWS RT Date of Service: 08/01/2020 EXAM: XRAY ANKLE MIN 3 VIEWS RT INDICATION: Female, 89 years year old patient, fall, lateral malleolus swelling, ? FX COMPARISON(S): None Available TECHNIQUE: 3 view(s) of the right ankle. FINDINGS: Generalized osteopenia. There is bimalleolar ankle fracture. A Toscano B type in jury identified to involve the distal fibula, nondisplaced. Additionally, there is a nondisplaced fracture through the medial colliculus of the distal tibia. The talar dome is intact. Mortise well p reserved. Bimalleolar soft tissue swelling is pres ent. Posterior calcaneal traction spur seen. Advanced arteriosclerotic calcifications are present. IMPRESSION: 1. Acute bimalleolar fracture of the right ankle. We sarah beth B type fracture of the distal fibula and nondisplaced fractur e through the medial malleolus evident. 2. Ankle mortise appears to be well pr eserved. Finalized by: Tripp Tilley MD on 8:35 PM CDT Patient/Procedure Information: [facility] MRN/NOELLE: [id number] Order Number: [id number] Accession Number: [id number] Ordering Provider: LYNDON VOGEL Authorizing Provider: LYNDON VOGEL Procedure Note Interface, Radiantres - 08/01/2020 8:37 PM CDT Patient Name: RICKIE SCHMID Date of : 1930 Procedure: XRAY ANKLE MIN 3 VIEWS RT Date of Service: 08/01/2020 EXAM: XRAY ANKLE MIN 3 VIEWS RT INDICATION: Female, 89 years year old p atient, fall, lateral malleolus swelling, ? FX COMPARISON(S): None Available TECHNIQUE: 3 view(s) of the right ankle. FINDINGS: Generalized osteopenia. There is bimalleolar ankle fracture. A W matt B type injury identified to involve the distal fibula, nondisplaced. Additionally, there is a nondisplaced fracture through the medial colliculus of the distal tibia. The talar dome is intact. Mortise well p reserved. Bimalleolar soft tissue swelling is pres ent. Posterior calcaneal traction spur seen. Advanced arteriosclerotic calcifications are present. IMPRESSION: 1. Acute bimalleolar fracture of the ri ght ankle. Toscano B type fracture of the distal fibula and nondisplaced fracture through the medial malleolus evident. 2. Ankle mortise appears to be well pre served. Finalized by: Tripp Tilley MD on 8:35 PM CDT Patient/Procedure Information: [facility] MRN/NOELLE: [id number] Order Number: [id number] Accession Number: [id number] Ordering Provider: LYNDON VOGEL Authorizing Provider: LYNDON VOGEL Performing Organization Address City/State/Zipcode Phone Number [id number] XRAY KNEE MIN 4 VIEWS RT (08/01/2020 7:40 PM CDT) Specimen Narrative Performed At [facility] Patient Name: RICKIE SCHMID Date of : 1930 Procedure: XRAY KNEE MIN 4 VIEWS RT Date of Service: 08/01/2020 EXAM: XRAY KNEE MIN 4 VIEWS RT INDICATION: Female, 89 years year old patient, fall, pain COMPARISON(S): 01/26/2017 TECHNIQUE: 3 view(s) of the right knee were obtained. FINDINGS: There is no fracture seen. No joint effusion. Wispy calcifications are identified about the meniscus , lateral greater than medial, suggest underlying chondroc alcinosis. Heterogeneous sclerotic focus within the distal right femoral metadiaphysis may represent an old bone infarct versus enchondroma. There is extensive vascular calcificatio ns present. IMPRESSION: 1. No acute traumatic change. 2. Chondrocalcinosis. 3. Arteriosclerosis.. Finalized by: Tripp Tilley MD on 8:26 PM CDT Patient/Procedure Information: [facility] MRN/NOELLE: [id number] Order Number: [id number] Accession Number: [id number] Ordering Provider: LYNDON VOGEL Authorizing Provider: LYNDON VOGEL Procedure Note Interface, Radiantres - 08/01/2020 8:28 PM CDT Patient Name: RICKIE SCHMID Date of : 1930 Procedure: XRAY KNEE MIN 4 VIEWS RT Date of Service: 08/01/2020 EXAM: XRAY KNEE MIN 4 VIEWS RT INDICATION: Female, 89 years year old p atient, fall, pain COMPARISON(S): 01/26/2017 TECHNIQUE: 3 view(s) of the right knee were obtained. FINDINGS: There is no fracture seen. No joint effusion. Wispy calcifications are identified abou t the meniscus, lateral greater than medial, suggest underlying chondrocalcinosis. Heterogeneous sclerotic focus within the distal right femoral metadiaphysis may represent an old bone infarct versus enchondroma. There is extensive vascular calcificatio ns present. IMPRESSION: 1. No acute traumatic change. 2. Chondrocalcinosis. 3. Arteriosclerosis.. Finalized by: Tripp Tilley MD on 021 8:26 PM CDT Patient/Procedure Information: [facility] MRN/NOELLE: [id number] Order Number: [id number] Accession Number: [id number] Ordering Provider: LYNDON VOGEL Authorizing Provider: LYNDON VOGEL Performing Organization Address City/State/Zipcode Phone Number [id number] LAB ONLY-COMPLETE BLOOD COUNT WITH DIFFERENTIAL (08/01/2020 6:44 PM CDT) [facility] nature WBC 12.3 (H) 4.0 - 11.0 K/uL [address] RBC 4.06 3.80 - 5.[address] M/uL Hemoglobin 11.8 11.5 - 15.[address] g/dL Hematocrit 37.2 35.0 - 45.0 % [address] MCV 91.6 80.0 - 98.[address] MCH 29.1 25.5 - 34.[address] MCHC 31.7 31.5 - 36.[address] g/dL RDW-CV 13.4 11.5 - 15.5 % [address] RDW-SD 44.8 35.5 - 50.[address] Platelet Count 276 140 - 400 K/uL [address] MPV 9.9 8.5 - 12.[address] Seg Neut Absolute 10.1 (H) 1.8 - 8.0 K/uL [address] Lymphocytes Absolute 1.1 0.8 - 4.1 K/uL [place] [address] [facility] Monocytes Absolute 1.0 0.0 - 1.0 K/uL [address] Eosinophils Absolute 0.0 0.0 - 0.7 K/uL [place] [address] [facility] Basophil Absolute 0.1 0.0 - 0.2 K/uL [address] Immature Granulocyte 0.08 (H) 0.00 - 0.06 [place] [address] [facility] Absolute K/uL Neutrophils Abs. 10,100 /uL [address] (Segs and Bands) Neutrophils Percent 81.8 % [address] Lymphocytes Percent 8.5 % [address] Monocytes Percent 8.4 % [address] Immature Granulocyte 0.6 % [address] Percent Eosinophils Percent 0.2 % [address] Basophil Percent 0.5 % [address] Nucleated RBC 0 /[address] Specimen Blood - Blood specimen (specimen) Performing Organization Address [facility] [place] Phone Number [address] [place] [address] PROTIME/INR (08/01/2020 6:44 PM CDT) Pathologist Sig [facility] Protime 14.4 12.0 - 14.[address] INR 1.2 (L) 2.0 - 3.[address] Specimen Blood - Blood specimen (specimen) Narrative Performed At Normal INR reference range (patients not on oral antic oagulants) [address] 0.9-1.1. INR Standard Intensity = (2.0 - 3.0) INR Higher Intensity = (2.5 - 3.5) Performing Organization Address [facility] [place] [facility] [place] Phone Number [address] [address] TROPONIN I (08/01/2020 6:44 PM CDT) Pathologist Sig [facility] Troponin I 0.006 0.000 - 0.028 ng/mL [address] Specimen Blood - Blood specimen (specimen) Performing Organization Address [facility] Phone Number [address] [address] COMPREHENSIVE METABOLIC PANEL (08/01/2020 6:44 PM CDT) Pathologist [facility] Glucose 243 (H) 70 - 100 mg/dL [address] BUN 18 6 - 22 mg/dL [address] Creatinine 1.52 (H) 0.60 - 1.[address] mg/dL BUN/Creatinine Ratio 11.8 10.0 - 25.[address] Sodium 136 135 - 145 meq/L [address] Potassium 4.5 3.5 - 5.3 meq/L [address] Chloride 100 99 - 110 meq/L [address] CO2 23 20 - 29 meq/L [address] Anion Gap with K 18 6 - 20 meq/L [address] Calcium 9.7 8.5 - 10.[address] mg/dL Protein Total 7.1 6.0 - 8.2 g/dL [address] Albumin 4.0 3.5 - 5.0 g/dL [address] Alkaline Phosphatase 52 30 - 150 U/L [address] AST - SGOT 20 0 - 35 U/L [address] ALT - SGPT 11 0 - 55 U/L [address] Bilirubin Total 0.4 0.2 - 1.2 mg/dL [address] Age [address] eGFR Non- 32 (L) >=[address] Ghanaian mL/min/1.73m2 eGFR 39 (L) >=[address] mL/min/1.73m2 Specimen Blood - Blood specimen (specimen) Performing Organization Address City/State/Zipcode Phone Number [address] [place] [address] ORTHOPEDIC INJURY TREATMENT (08/01/2020 6:25 PM CDT) Narrative Performed At Lyndon Vogel MD 08/01/2020 11: 41 PM ORTHOPEDIC INJURY TREATMENT Date/Time: 08/01/2020 9:05 PM Performed by: Lyndon Vogel MD Authorized by: Lyndon Vogel MD Consent: Verbal consent obtained. Risks and benefits: risks, benefits and alternatives were discussed Consent given by: patient Patient understanding: patient states understanding of the procedure being performed Patient consent: the patient's understan ding of the procedure matches consent given Imaging studies: imaging studies availab le Required items: required blood products, implants, devices, and special equipment available Patient identity confirmed: arm band and verbally with patient Time out: Immediately prior to procedure a "time out" was called to verify the correct patient, procedure, equipmen t, technical support assistant and site/side marked as required. Injury location: ankle Location details: right ankle Injury type: fracture Fracture type: bimalleolar Pre-procedure neurovascular assessment: neurovascularly intact Pre-procedure distal perfusion: normal Pre-procedure neurological function: nor mal Pre-procedure range of motion: reduced Anesthesia: Local anesthesia used: no Sedation: Patient sedated: no Manipulation performed: no Immobilization: splint Splint type: Lower leg sugar tong splint with posterior slab and flat plate. Supplies used: Ortho-Glass Post-procedure neurovascular assessment: post-procedure neurovascularly intact Post-procedure distal perfusion: normal Post-procedure neurological function: no rmal Post-procedure range of motion comment: Unable to assess as she is immobilized Patient tolerance: patient tolerated the procedure wel l with no immediate complications documented in this encounter Visit Diagnoses Diagnosis Closed bimalleolar fracture of right ank le, initial encounter - Primary Fall, initial encounter Syncope, unspecified syncope type Healthcare maintenance Routine general medical examination at a health care facility Type 2 diabetes mellitus without complic ation, without long-term current use of insulin ([facility]) Ankle fracture Unspecified closed fracture of ankle documented in this encounter Discharge Diagnoses Not on filedocumented in this encounter Administered Medications Medication Order MAR Action Action Date Dose Rate Site acetaminophen (TYLENOL) tablet Given 08/04/2020 6:22 AM CDT 1,0 00 mg 1,000 mg 1,000 mg, Oral, Every eight hours, First dose on 08/01/20 at 2210, Until Discontinued, Adult patients: Total dose of acetaminophen from all acetaminophen containing products should not exceed 4 grams (4000 mg) per day. Pediatric Patients 0 - 3 months: Maximum of 60 mg/kg/24 hours of acetaminophen. Pediatric Patients older than 3 months: Maximum of 75 mg/kg/24 hours of acetaminophen (Never exceeding 4 grams/day). , Given 08/03/2020 9:38 PM CDT 1,000 mg Given 08/03/2020 3:21 PM CDT 1,000 mg benzocaine-menthol (CEPACOL w/ Given 08/02/2020 9:43 PM CDT 1 l ozenge BENZOCAINE) lozenge 1 lozenge 1 lozenge, Mouth/Throat, Four times a day prn, Starting 08/02/20 at 2132, Until Discontinued, sore throat bisacodyl (DULCOLAX) suppository 10 mg 10 mg, Rectal, One time a day prn, Starting Sat 1 at 2208, Until Discontinued, constipation, Use SECOND for constipatio n. If patient cannot take oral medications, use first for constipation., calcium carbonate (TUMS) chewable tablet 1,000 mg 1,000 mg, Oral, Every four hours prn, Starting Sat 07/16 11/04 at 2208, Until Discontinued, other (Specify), acid reflux, Use FIRST for acid reflux. If ineffective after 60 minutes, may proceed to next rome ce option or, if no other options, contact provider., carbohydrate 15 g 15 g, Oral, PRN per parameter, Starting 08/01/20 at 2211, Until Discontinued, low blood glucose, Give 15 grams of carb ohydrate if blood glucose is less than 70 mg/dL, patient is responsive and able to take food or oral meds. Recheck blood glucose in 15 minutes. Repeat 1 time and call MD. If recheck is greater than 70 mg/dL and able to take food or oral meds, give 15 gram carbohydrate if meal or snack due in more than an hour. Serve meal or snack if due in less than 1 hour. See hypoglycemia treatment on cardex. S ources of 15 grams carbohydrate: a. 4 oz of fruit juice or b. 4 oz of soda pop (NOT diet) or c. 1 tablespoon of honey, cyanocobalamin (VITAMIN B-12 DOTS) Given 08/04/2020 9:23 AM CDT 1,000 mcg sublingual tablet 1,000 mcg 1,000 mcg, Oral, DAILY, First dose on 08/02/20 at 0900, Until Discontinued Given 08/03/2020 8:59 AM CDT 1,000 mcg Given 08/02/2020 9:31 AM CDT 1,000 mcg dextrose 50% IV solution 50 mL 50 mL (25 g), IV, PRN per parameter, Starting Sat 08/01 at 2211, Until Discontinued, low blood glucose, 50 mL, Give if blood glucose is less than 70 mg/dL, patient is unresponsive or NPO, a nd has IV access. Recheck blood glucose in 15 minutes and call MD. Repeat dose if r echeck less than 70 mg/dL and call MD. If recheck is greater than 70 mg/dL and abl e to take food or oral meds, give 15 gram carbohydrate if meal or snack due in mor e than an hour. Serve meal or snack if due in less than 1 hour. See hypoglycemia treatment on car dex., dextrose chewable tablet 16 g 16 g (4 tablet), Oral, PRN per parameter, Starting 08/01/20 at 2211, Until Discontinued, low blood glucose, Chew before swallowin g. Give 15 gram of carbohydrate if blood glucose is less th an 70 mg/dL, patient is responsive and able to take food or oral meds. Recheck blood glucose in 15 minutes. Repeat 15 gram carbohydrate if recheck is less than 70 mg/dL and call MD. If recheck is greater than 70 mg/dL and able to take food or o ral meds, give 15 gram carbohydrate if meal or snack due in more than an hour. Serve meal or snack if due in less than 1 hour. See hypoglycemia treatment on cardex. (S ources of 15 gram carbohydrate: 4 oz fruit juice or 4 oz soda pop (NOT diet) or 1 t ablespoonful honey or 4 glucose tablets.), docusate sodium (THEREVAC-SB MINI;ENEMEE Z MINI) 283 MG enema 1 enema 1 enema, Rectal, One time a day prn, Starting Sat 08/01 at 2208, Until Discontinued, constipation, Use THIRD for constipation - if no BM 8 hours after dulcolax suppository. If patient cannot take oral medi cations, use second for constipation., enoxaparin (LOVENOX) subcutaneous injection Given 08/04/2020 9:24 AM CDT 40 mg solution 40 mg 40 mg, Subcutaneous, Daily, 14 doses, First dose on 08/03/20 at 0800, Last dose on Mon08/16/20 at 0800, Post - Op, Begin 0800 on first postop day. To avoid the loss of drug when using the 30 mg and 40 mg prefilled syringes, do not expel the air bubble from the syringe before the injection. For ADULT patients: Administration should be alternated between the left and right anterolateral and left and right posterolateral abdominal wall. The whole length of the needle should be introduced into a skin fold held between the thumb and forefinger; the skin fold should be held throughout the injection. To minimize bruising, do not rub the injection site after completion of the injection. For PEDIATRIC patients: Administration should be alternated between appropriate sites for patient age/weight (infants/small children = upper thigh; older children/adolescents = left and right anterolateral and left and right posterolateral abdominal wall). During administration to infants/smaller children sometimes the whole length of the needle is not "introduced" during the injection. Administer injection into a skin fold held between the thumb and forefinger; the skin fold should be held throughout the injection. To minimize bruising, do not rub the injection site after completion of the injection., Given 08/03/2020 8:59 AM CDT 40 mg famotidine (PEPCID) tablet 20 mg 20 mg, Oral, One time a day prn, Startin g 08/01/20 at 2216, Until Discontinued, other (Specify), acid reflux, Use SECOND for acid reflux if inadequate response to calcium carbonate (Tums) after 60 minute s. If inadequate response to famotidine (Pepcid) in 60 minutes, may proceed to n ext choice option or, if no other options, contact provider., glucagon for injection 1 mg vial 1 mg 1 mg, Intramuscular, PRN per parameter, Starting Sat at 2211, Until Discontinued, low blood glucose, Give if blood glucose less than 70 mg/dL, patient is unresponsive or NPO, and has no IV ac cess. Establish IV access. Recheck blood glucose in 15 minutes and call MD. If r echeck is greater than 70 mg/dL and able to take food or oral meds, give 15 gram car bohydrate if meal or snack due in more than an hour. Serve meals or snack if due in less than 1 ho ur. See hypoglycemia treatment on cardex. Reconstitute vial with 1 mL of sterile water for injection for reconstitution for a final concentra tion of 1 mg/mL. Shake vial gently. Use immediately and discard unused portion. Reconstitute with 1 mL of sterile water for injection to yield 1 mg/mL. Shake vial gently. Use immediately and discard unused portion., insulin aspart (NovoLOG) SQ correction s inez (Adult) 2-8 Units, Subcutaneous, Three times a day, First dose on 08/02/20 at 0600, Until Discontinued, 0.08 mL, Give this dose whether patient is eating or patient is NPO LOW DOSE insulin aspart (NovoL OG) subcutaneous correction scale Premeal Blood Glucose = Insulin Dose 150-1 99 2 units 200-249 3 units 250-299 5 units 300-349 7 units Over 349 8 units, labetalol (NORMODYNE;TRANDATE) IV soluti on 10 mg 10 mg, IV, Every four hours prn, Startin g 08/01/20 at 2254, Until Discontinued, SBP > 160, HR > 120, 20 mL losartan tablet 50 mg Given 08/04/2020 9:24 AM CDT 50 mg 50 mg, Oral, Every morning, First dose on 08/04/20 at 0900, Until Discontinued, Hold for SBP less than 100, melatonin tablet 3 mg 3 mg, Oral, Bedtime prn, Starting Sat at 2208, Until Discontinued, other (Specify), insomnia, Use FIRST for insom azael. If inadequate response in 60 minutes, may proceed to next choice option or, if no other opti ons, contact provider., multivitamin therapeutic with minerals Given 08/04/2020 9:24 AM CDT 1 tablet (THERA-M) tablet 1 tablet 1 tablet, Oral, DAILY, First dose on 08/02/20 at 0900, Until Discontinued Given 08/03/2020 8:59 AM CDT 1 tablet Given 08/02/2020 9:31 AM CDT 1 tablet oxyCODONE (OXY-IR) tablet 10 mg Given 08/03/2020 8:59 AM CDT 10 mg 10 mg, Oral, Every four hours prn, Starting 08/02/20 at 1537, Until Discontinued, other (Specify), see admin instructions, PACU - Continue Post-Op, Give 10 mg FIRST for pain Scale 7 or greater; if 10 mg fails for pain score 7 or greater, assess if IV medication order is present for pain unrelieved by oral medication., oxyCODONE (OXY-IR) tablet 5 mg Given 08/02/2020 5:47 PM CDT 5 mg 5 mg, Oral, Every four hours prn, Starting 08/02/20 at 1537, Until Discontinued, other (Specify), see admin instructions, PACU - Continue Post-Op, Give 5 mg FIRST for pain Scale 4 to 6; if pain unrelieved by 5 mg for pain score 4-6, do NOT give another tablet, but instead assess if IV medication order is present for pain unrelieved by oral medication., polyethylene glycol (MIRALAX) packet 1 Given 08/04/2020 9:24 AM CDT 1 packet packet 1 packet, Oral, Daily, First dose on 08/03/20 at 0900, Until Discontinued, Post - Op, Hold if 2 loose stools occur in the last 24 hours. Do NOT give if patient on thickened liquids. Contact provider for alternative if needed., Given 08/03/2020 8:59 AM CDT 1 packet senna-docusate sodium Given 08/04/2020 9:24 AM CDT 1 tablet (SENOKOT-S;PERICOLACE) tablet 1 tablet 1 tablet, Oral, Two times a day, First dose on 08/02/20 at 2100, Until Discontinued, Post - Op, Hold if 2 loose stools occur in the last 24 hours., Given 08/03/2020 9:38 PM CDT 1 tablet Given 08/03/2020 8:59 AM CDT 1 tablet senna-docusate sodium Given 08/04/2020 6:41 AM CDT 2 tablets (SENOKOT-S;PERICOLACE) tablet 2 tablet 2 tablet, Oral, Two times a day prn, Starting 08/01/20 at 2208, Until Discontinued, constipation, Use FIRST for constipation unless patient cannot take oral medications., simvastatin (ZOCOR) tablet 20 mg Given 08/03/2020 9:38 PM CDT 20 mg 20 mg, Oral, Bedtime, First dose on 08/02/20 at 2100, Until Discontinued Given 08/02/2020 9:11 PM CDT 20 mg sodium chloride 0.9% flush (adult) 10 mL Given 08/03/2020 9:40 PM CDT 10 mL 10 mL, IV, Two times a day and prn, First dose on 08/01/20 at 2210, Until Discontinued, 10 mL, Flush unused lumens as scheduled and as often as necessary before and after meds. Use a push/pause technique when flushing to create turbulence., Given 08/03/2020 8:59 AM CDT 10 mL Given 08/01/2020 11:52 PM CDT 10 mL Medication Order MAR Action Action Date Dose Rate Site acetaminophen (TYLENOL) tablet Given 08/02/2020 3:58 AM CDT 650 mg 650 mg 650 mg, Oral, Every four hours prn, Starting 08/01/20 at 2208, Until 08/02/20 at 1555, mild pain, Use FIRST for mild pain. If inadequate response in 60 minutes, may proceed to next choice option or if no other options, contact provider. Adult patients: Total dose of acetaminophen from all acetaminophen containing products should not exceed 4 grams (4000 mg) per day. Pediatric Patients 0 - 3 months: Maximum of 60 mg/kg/24 hours of acetaminophen. Pediatric Patients older than 3 months: Maximum of 75 mg/kg/24 hours of acetaminophen (Never exceeding 4 grams/day)., ceFAZolin (ANCEF) 2000 mg/20 mL sterile Given 08/02/2020 12:33 P M CDT 2,000 mg water IV syringe 2,000 mg, IV, One time, 1 dose, 08/02/20 at 1200, 20 mL, Pre - Op, Administer as IV push over 4 minutes., ceFAZolin (ANCEF) 2000 mg/20 mL sterile Given 08/03/2020 6:36 A M CDT 2,000 mg water IV syringe 2,000 mg, IV, Every eight hours, 2 doses, First dose on 08/02/20 at 2200, Last dose on 08/03/20 at 0600, 20 mL, PACU - Continue Post-Op, Administer as IV push over 4 minutes., Given 08/02/2020 9:13 PM CDT 2,000 mg fentaNYL 100 mcg/2 mL preservative free Given 08/01/2020 6:45 P M CDT 50 mcg injection solution 50 mcg 50 mcg, IV, Now, 1 dose, 08/01/20 at 1830, 1 mL fentaNYL 100 mcg/2 mL preservative free Given 08/02/2020 4:03 P M CDT 50 mcg injection solution 50 mcg 50 mcg, IV, Every five minutes prn, 6 doses, Starting 08/02/20 at 1540, Until 08/02/20 at 1707, other (Specify), moderate pain scale 4-6 or severe pain above 7 if hydromorphone not ordered (max dose of 300 mcg), 1 mL, PACU, Use only anesthesia's orders for moderate or severe pain while in PACU or recovery care, sodium chloride 0.9% (bolus) IV Given 08/01/2020 6:45 PM CDT 50 0 mL 999 mL/hr solution 500 mL 500 mL, IV, at 999 mL/hr, Now, 1 dose, 08/01/20 at 1830, 500 mL sodium chloride 0.9% IV solution New Bag 08/02/2020 5:31 PM CDT 75 mL/hr IV, at 75 mL/hr, Continuous, Starting 08/01/20 at 2210, Until 08/02/20 at 2209, 1,000 mL New Bag 08/01/2020 11:57 PM CDT 75 mL/hr sodium chloride 0.9% IV Already Infusing 08/02/2020 3:46 PM CDT 125 mL/hr solution IV, at 125 mL/hr, Continuous, Starting 08/02/20 at 1545, Until 08/02/20 at 1707, 1,000 mL, PACU, TKO current fluids if patient is going to Day Unit / ARU and tolerating PO fluids without nausea., documented in this encounter
[2020-08-06] MEDS ORDERED: Aluminum Hydroxide/Magnesium Hydroxide/Simethicone Susp 30 ML Cup PO PRN (16:49)
[2020-08-07] MEDS: Acetaminophen 500 MG Tab PO SCH ×4 (00:08→21:33)
[2020-08-07] MEDS: Calcium Carbonate/Vitamin D3 1500 MG-400 Units Tab PO SCH ×2 (07:35→17:25)
[2020-08-07] MEDS: metFORMIN 500 MG Tab PO SCH ×2 (07:35→17:25)
[2020-08-07] MEDS: Losartan 50 MG Tab PO SCH (07:35)
[2020-08-07] MEDS: Enoxaparin 40 MG/0.4 ML Syringe SUBCUT SCH (07:36)
[2020-08-07] MEDS: Magnesium Oxide 400 MG Tab PO SCH (07:36)
[2020-08-07] MEDS: Polyethylene Glycol 3350 Powder 17 GM Packet PO SCH (07:36)
[2020-08-07] MEDS: Multivitamin Tab PO SCH (07:37)
[2020-08-07] MEDS: Cyanocobalamin (Vitamin B12) 1,000 MCG Tab PO SCH (07:38)
[2020-08-07] MEDS: Ascorbic Acid 500 MG Tab PO SCH (07:38)
[2020-08-07] MEDS: Cholecalciferol (Vitamin D3) 25 MCG Tab PO SCH (07:39)
[2020-08-07] MEDS: Simvastatin 20 MG Tab PO SCH (07:39)
[2020-08-07] MEDS: Calcium Carbonate 500 MG Tab.Chew PO PRN (13:46)
--- NOTE | 2020-08-07 17:26 | PCM.PN ---
- General Info Date of Service: 08/07/20 Admission Dx/Problem (Free Text): Right ankle facture secondary to a fall s/p ORIF Functional Status: Reports: Pain Controlled, Tolerating Diet - Review of Systems General: Reports: No Symptoms HEENT: Reports: No Symptoms Pulmonary: Reports: No Symptoms Cardiovascular: Reports: No Symptoms Gastrointestinal: Reports: Diarrhea Genitourinary: Reports: No Symptoms Musculoskeletal: Reports: Foot Pain, Joint Swelling Skin: Reports: No Symptoms Neurological: Reports: No Symptoms Psychiatric: Reports: No Symptoms - Patient Data Vitals - Most Recent: Last Vital Signs Temp 98.2 F 08/07/20 07:15 Pulse 108 H 08/07/20 07:15 Resp 22 H 08/07/20 07:15 BP 162/91 H 08/07/20 07:35 Pulse Ox 100 08/07/20 07:15 Weight - Most Recent: 120 lb 1.6 oz I&O - Last 24 Hours: Intake & Output 08/07/20 08/07/20 08/07/20 06:59 14:59 22:59 Intake Total 360 Balance 360 Lab Results Last 24 Hours: Laboratory Results - last 24 hr 08/07/20 08/07/20 Range/Units 07:32 17:04 POC Glucose 128 H 170 H (70-99) mg/dL Med Orders - Current: Current Medications Acetaminophen (Acetaminophen 325 Mg Tab) 650 mg PO Q4H PRN PRN Reason: Pain (Mild 1-3)/fever Acetaminophen (Acetaminophen 500 Mg Tab) 1,000 mg PO Q8HR [facility] Last Admin: 08/07/20 07:37 Dose: 1,000 mg Documented by: Al Hydroxide/Mg Hydroxide (Aluminum Hydroxide/Magnesium Hydroxide/Simethicone Susp 30 Ml Cup) 30 ml PO Q4H PRN PRN Reason: Indigestion Last Admin: 08/06/20 17:03 Dose: 30 ml Documented by: Ascorbic Acid (Ascorbic Acid 500 Mg Tab) 250 mg PO DAILY [facility] Last Admin: 08/07/20 07:38 Dose: 250 mg Documented by: Aspirin (Aspirin 81 Mg Tab.Ec) 162 mg PO DAILY@12 HODA Bisacodyl (Bisacodyl 5 Mg Tab) 5 mg PO DAILY PRN PRN Reason: Constipation Bismuth Subsalicylate (Bismuth Subsalicylate 262 Mg/15 Ml Susp 236 Ml Bottle) 30 ml PO TID PRN PRN Reason: Diarrhea Calcium Carbonate (Calcium Carbonate/Vitamin D3 1500 Mg-400 Units Tab) 1 tab PO BIDMEALS [facility] Last Admin: 08/07/20 07:35 Dose: 1 tab Documented by: Calcium Carbonate/Glycine (Calcium Carbonate 500 Mg Tab.Chew) 1,000 mg PO Q4HR PRN PRN Reason: acid reflux Last Admin: 08/07/20 13:46 Dose: 1,000 mg Documented by: Cholecalciferol (Cholecalciferol (Vitamin D3) 25 Mcg Tab) 50 mcg PO DAILY [facility] Last Admin: 08/07/20 07:39 Dose: 50 mcg Documented by: Cyanocobalamin (Cyanocobalamin (Vitamin B12) 1,000 Mcg Tab) 1,000 mcg PO DAILY [facility] Last Admin: 08/07/20 07:38 Dose: 1,000 mcg Documented by: Enoxaparin Sodium (Enoxaparin 40 Mg/0.4 Ml Syringe) 40 mg SUBCUT DAILY [facility] Stop: 08/17/20 08:01 Last Admin: 08/07/20 07:36 Dose: 40 mg Documented by: Glimepiride (Glimepiride 2 Mg Tab) 2 mg PO DAILY PRN PRN Reason: BS>110 Losartan Potassium (Losartan 50 Mg Tab) 50 mg PO DAILY [facility] Last Admin: 08/07/20 07:35 Dose: 50 mg Documented by: Magnesium Oxide (Magnesium Oxide 400 Mg Tab) 400 mg PO DAILY [facility] Last Admin: 08/07/20 07:36 Dose: 400 mg Documented by: Melatonin (Melatonin 3 Mg Tab) 3 mg PO BEDTIME PRN PRN Reason: Insomnia Metformin HCl (Metformin 500 Mg Tab) 1,000 mg PO BIDMEALS [facility] Last Admin: 08/07/20 07:35 Dose: 1,000 mg Documented by: Multivitamins/Minerals/Vitamin C (Multivitamin Tab) 1 tab PO DAILY [facility] Last Admin: 08/07/20 07:37 Dose: 1 tab Documented by: Oxycodone HCl (Oxycodone 5 Mg Tab) 5 mg PO Q4HR PRN PRN Reason: pain Polyethylene Glycol (Polyethylene Glycol 3350 Powder 17 Gm Packet) 17 gm PO DAILY [facility] Last Admin: 08/07/20 07:36 Dose: Not Given Documented by: Senna (Sennosides 8.6 Mg Tab) 1 mg PO BID PRN PRN Reason: Constipation Senna/Docusate Sodium (Docusate Sodium/Sennosides 50-8.6 Mg Tab) 1 tab PO BID [facility] Last Admin: 08/07/20 07:37 Dose: Not Given Documented by: Simvastatin (Simvastatin 20 Mg Tab) 20 mg PO DAILY [facility] Last Admin: 08/07/20 07:39 Dose: 20 mg Documented by: - Exam Quality Assessment: DVT Prophylaxis General: Alert, Oriented, Cooperative, No Acute Distress Neck: Supple Lungs: Clear to Auscultation, Normal Respiratory Effort Cardiovascular: Regular Rate, Regular Rhythm GI/Abdominal Exam: Normal Bowel Sounds, Soft, Non-Tender, No Organomegaly Back Exam: Normal Inspection, Full Range of Motion Extremities: Normal Inspection, Normal Range of Motion (splint and ryan wrap to right LE) Skin: Warm, Dry, Intact Neurological: No New Focal Deficit Psy/Mental Status: Alert, Normal Affect, Normal Mood - Patient Data Lab Results Last 24 hrs: Laboratory Results - last 24 hr 08/07/20 08/07/20 Range/Units 07:32 17:04 POC Glucose 128 H 170 H (70-99) mg/dL Sepsis Event Note - Evaluation Sepsis Screening Result: No Definite Risk - Focused Exam Vital Signs: Vital Signs Temp Pulse Resp BP BP Pulse Ox 08/07/20 07:35 162/91 H 08/07/20 07:15 98.2 F 108 H 22 H 162/91 H 100 - Problem List & Annotations (1) Diabetes SNOMED Code(s): 00818212 Code(s): E11.9 - TYPE 2 DIABETES MELLITUS WITHOUT COMPLICATIONS Status: Acute Current Visit: Yes Qualifiers: Diabetes mellitus type: type 2 Diabetes mellitus senior living insulin use: without termite treater use Diabetes mellitus complication status: without complication Qualified Code(s): E11.9 - Type 2 diabetes mellitus without complications (2) Status post ORIF of fracture of ankle SNOMED Code(s): 391265335 Code(s): Z98.890 - OTHER SPECIFIED POSTPROCEDURAL STATES; Z87.81 - PERSONAL HISTORY OF (HEALED) TRAUMATIC FRACTURE Status: Acute Current Visit: Yes (3) Hypertension SNOMED Code(s): 03080968 Code(s): I10 - ESSENTIAL (PRIMARY) HYPERTENSION Status: Acute Current Visit: Yes Qualifiers: Hypertension type: essential hypertension Qualified Code(s): I10 - Essential (primary) hypertension (4) GERD (gastroesophageal reflux disease) SNOMED Code(s): 032972580 Code(s): K21.9 - GASTRO-ESOPHAGEAL REFLUX DISEASE WITHOUT ESOPHAGITIS Status: Acute Current Visit: Yes Qualifiers: Esophagitis presence: without esophagitis Qualified Code(s): K21.9 - Gastro-esophageal reflux disease without esophagitis - Problem List Review Problem List Initiated/Reviewed/Updated: Yes - Plan Plan:: 08/07/2020 1. Right ankle fracture s/p ORIF: continue with ankle splint and bandage to right LE, CMS checks within normal limits to right toes. Orthopedics follow up next week at [facility] 2. Type 2 DM: Blood sugars reviewed, continue current medication of metformin 3. Hypertension: on Losartan and blood pressures are running higher with heart rate 90-108. Will start metoprolol tartrate 12.5mg one tablet twice a day and monitor blood pressures 4. Diarrhea: most likely from Miralax and Senna will change to as needed 5. Acute renal failure noted in notes from hospitalization: will check BMP before discharged to home 6. GERD: will start pepcid 20mg one tablet daily and use TUMS as needed 7. Hyperlipidemia: continue on Simvastatin Patient's pain is controlled on Tylenol three times a day, will adjust times so patient does not have to be woke up at midnight. Continue with PT/OT, hopes to discharge to home next week will depend on orthopedics visit and progress in therapy. Patient would benefit from a home evaluation to see how she does inside her home and if any medical equipment is needed. Dr Bundy is notified of patient's plan of care. Tawny Benavidez,SENIOR QC TECHNICIAN
[2020-08-07] MEDS ORDERED: Polyethylene Glycol 3350 Powder 17 GM Packet PO PRN (17:32)
[2020-08-07] MEDS: Metoprolol Tartrate 25 MG Tab PO SCH (20:04)
[2020-08-08] MEDS: Acetaminophen 500 MG Tab PO SCH ×3 (06:00→21:01)
[2020-08-08] MEDS: metFORMIN 500 MG Tab PO SCH ×2 (07:44→17:30)
[2020-08-08] MEDS: Calcium Carbonate/Vitamin D3 1500 MG-400 Units Tab PO SCH ×2 (07:45→17:30)
[2020-08-08] MEDS: Cholecalciferol (Vitamin D3) 25 MCG Tab PO SCH (07:45)
[2020-08-08] MEDS: Simvastatin 20 MG Tab PO SCH (07:47)
[2020-08-08] MEDS: Cyanocobalamin (Vitamin B12) 1,000 MCG Tab PO SCH (07:47)
[2020-08-08] MEDS: Magnesium Oxide 400 MG Tab PO SCH (07:47)
[2020-08-08] MEDS: Ascorbic Acid 500 MG Tab PO SCH (07:47)
[2020-08-08] MEDS: Multivitamin Tab PO SCH (07:47)
[2020-08-08] MEDS: Enoxaparin 40 MG/0.4 ML Syringe SUBCUT SCH (07:47)
[2020-08-08] MEDS: Losartan 50 MG Tab PO SCH (07:48)
[2020-08-08] MEDS: Metoprolol Tartrate 25 MG Tab PO SCH ×2 (07:48→19:38)
[2020-08-08] MEDS: Calcium Carbonate 500 MG Tab.Chew PO PRN (12:06)
[2020-08-08] MEDS: Bismuth Subsalicylate 262 MG/15 ML Susp 236 ML Bottle PO PRN (22:08)
[2020-08-09] MEDS: Acetaminophen 500 MG Tab PO SCH ×3 (05:50→21:40)
[2020-08-09] MEDS: Magnesium Oxide 400 MG Tab PO SCH (08:54)
[2020-08-09] MEDS: Ascorbic Acid 500 MG Tab PO SCH (08:55)
[2020-08-09] MEDS: Multivitamin Tab PO SCH (08:55)
[2020-08-09] MEDS: Metoprolol Tartrate 25 MG Tab PO SCH ×2 (08:55→19:01)
[2020-08-09] MEDS: metFORMIN 500 MG Tab PO SCH ×2 (08:55→17:41)
[2020-08-09] MEDS: Cyanocobalamin (Vitamin B12) 1,000 MCG Tab PO SCH (08:55)
[2020-08-09] MEDS: Cholecalciferol (Vitamin D3) 25 MCG Tab PO SCH (08:56)
[2020-08-09] MEDS: Simvastatin 20 MG Tab PO SCH (08:56)
[2020-08-09] MEDS: Calcium Carbonate/Vitamin D3 1500 MG-400 Units Tab PO SCH ×2 (08:56→17:41)
[2020-08-09] MEDS: Losartan 50 MG Tab PO SCH (08:57)
[2020-08-09] MEDS: Enoxaparin 40 MG/0.4 ML Syringe SUBCUT SCH (08:58)
[2020-08-09] MEDS: Bismuth Subsalicylate 262 MG/15 ML Susp 236 ML Bottle PO PRN (13:44)
[2020-08-10] MEDS: Acetaminophen 500 MG Tab PO SCH ×3 (05:43→21:40)
[2020-08-10] MEDS: metFORMIN 500 MG Tab PO SCH ×2 (08:03→17:04)
[2020-08-10] MEDS: Magnesium Oxide 400 MG Tab PO SCH (08:03)
[2020-08-10] MEDS: Losartan 50 MG Tab PO SCH (08:04)
[2020-08-10] MEDS: Calcium Carbonate/Vitamin D3 1500 MG-400 Units Tab PO SCH ×2 (08:08→17:05)
[2020-08-10] MEDS: Cholecalciferol (Vitamin D3) 25 MCG Tab PO SCH (08:09)
[2020-08-10] MEDS: Cyanocobalamin (Vitamin B12) 1,000 MCG Tab PO SCH (08:09)
[2020-08-10] MEDS: Multivitamin Tab PO SCH (08:09)
[2020-08-10] MEDS: Ascorbic Acid 500 MG Tab PO SCH (08:09)
[2020-08-10] MEDS: Metoprolol Tartrate 25 MG Tab PO SCH ×2 (08:10→19:30)
[2020-08-10] MEDS: Simvastatin 20 MG Tab PO SCH (08:10)
[2020-08-10] MEDS: Enoxaparin 40 MG/0.4 ML Syringe SUBCUT SCH (08:11)
[2020-08-10] MEDS: Calcium Carbonate 500 MG Tab.Chew PO PRN (10:13)
[2020-08-11] MEDS: Acetaminophen 500 MG Tab PO SCH ×3 (06:14→22:17)
[2020-08-11] MEDS: Ascorbic Acid 500 MG Tab PO SCH (07:17)
[2020-08-11] MEDS: Calcium Carbonate/Vitamin D3 1500 MG-400 Units Tab PO SCH ×2 (07:17→17:36)
[2020-08-11] MEDS: Losartan 50 MG Tab PO SCH (07:18)
[2020-08-11] MEDS: Cholecalciferol (Vitamin D3) 25 MCG Tab PO SCH (07:19)
[2020-08-11] MEDS: Metoprolol Tartrate 25 MG Tab PO SCH ×2 (07:19→19:37)
[2020-08-11] MEDS: metFORMIN 500 MG Tab PO SCH ×2 (07:20→17:36)
[2020-08-11] MEDS: Enoxaparin 40 MG/0.4 ML Syringe SUBCUT SCH (07:21)
[2020-08-11] MEDS: Bismuth Subsalicylate 262 MG/15 ML Susp 236 ML Bottle PO PRN (07:21)
[2020-08-11] MEDS: Cyanocobalamin (Vitamin B12) 1,000 MCG Tab PO SCH (13:52)
[2020-08-11] MEDS: Magnesium Oxide 400 MG Tab PO SCH (13:52)
[2020-08-11] MEDS: Simvastatin 20 MG Tab PO SCH (17:36)
[2020-08-11] MEDS: Multivitamin Tab PO SCH (17:36)
[2020-08-11] MEDS ORDERED: traMADol 50 MG Tab PO PRN (19:02)
[2020-08-12] MEDS: Acetaminophen 500 MG Tab PO SCH ×3 (07:42→21:06)
[2020-08-12] MEDS: Losartan 50 MG Tab PO SCH (07:43)
[2020-08-12] MEDS: metFORMIN 500 MG Tab PO SCH ×2 (07:43→17:05)
[2020-08-12] MEDS: Calcium Carbonate/Vitamin D3 1500 MG-400 Units Tab PO SCH ×2 (07:43→17:05)
[2020-08-12] MEDS: Metoprolol Tartrate 25 MG Tab PO SCH ×2 (07:43→20:28)
[2020-08-12] MEDS: Cholecalciferol (Vitamin D3) 25 MCG Tab PO SCH (07:44)
[2020-08-12] MEDS: Ascorbic Acid 500 MG Tab PO SCH (07:44)
[2020-08-12] MEDS: Enoxaparin 40 MG/0.4 ML Syringe SUBCUT SCH (07:45)
[2020-08-12] MEDS: Magnesium Oxide 400 MG Tab PO SCH (11:37)
[2020-08-12] MEDS: Cyanocobalamin (Vitamin B12) 1,000 MCG Tab PO SCH (11:37)
[2020-08-12] MEDS: Simvastatin 20 MG Tab PO SCH (17:05)
[2020-08-12] MEDS: Multivitamin Tab PO SCH (17:05)
[2020-08-12] MEDS: Bismuth Subsalicylate 262 MG/15 ML Susp 236 ML Bottle PO PRN (17:05)
[2020-08-12] MEDS ORDERED: Loperamide 2 MG Tab PO ONE (21:09)
[2020-08-13] MEDS: Acetaminophen 500 MG Tab PO SCH ×3 (06:03→21:32)
[2020-08-13] MEDS: Calcium Carbonate/Vitamin D3 1500 MG-400 Units Tab PO SCH ×2 (07:51→17:22)
[2020-08-13] MEDS: metFORMIN 500 MG Tab PO SCH ×2 (07:52→17:22)
[2020-08-13] MEDS: Cholecalciferol (Vitamin D3) 25 MCG Tab PO SCH (07:53)
[2020-08-13] MEDS: Losartan 50 MG Tab PO SCH (07:53)
[2020-08-13] MEDS: Ascorbic Acid 500 MG Tab PO SCH (07:54)
[2020-08-13] MEDS: Metoprolol Tartrate 25 MG Tab PO SCH ×2 (07:54→19:51)
[2020-08-13] MEDS: Enoxaparin 40 MG/0.4 ML Syringe SUBCUT SCH (07:56)
[2020-08-13] MEDS: Magnesium Oxide 400 MG Tab PO SCH (11:35)
[2020-08-13] MEDS: Cyanocobalamin (Vitamin B12) 1,000 MCG Tab PO SCH (11:35)
[2020-08-13] MEDS: Multivitamin Tab PO SCH (17:22)
[2020-08-13] MEDS: Simvastatin 20 MG Tab PO SCH (17:22)
[2020-08-13] MEDS ORDERED: Loperamide 2 MG Tab PO PRN ×3 (18:41→20:31)
[2020-08-14] MEDS: Acetaminophen 500 MG Tab PO SCH ×3 (06:02→21:36)
[2020-08-14] MEDS: metFORMIN 500 MG Tab PO SCH ×2 (07:45→17:05)
[2020-08-14] MEDS: Ascorbic Acid 500 MG Tab PO SCH (07:45)
[2020-08-14] MEDS: Enoxaparin 40 MG/0.4 ML Syringe SUBCUT SCH (07:45)
[2020-08-14] MEDS: Cholecalciferol (Vitamin D3) 25 MCG Tab PO SCH (07:45)
[2020-08-14] MEDS: Losartan 50 MG Tab PO SCH (07:45)
[2020-08-14] MEDS: Calcium Carbonate/Vitamin D3 1500 MG-400 Units Tab PO SCH ×2 (07:45→17:05)
[2020-08-14] MEDS: Metoprolol Tartrate 25 MG Tab PO SCH ×2 (07:46→19:40)
[2020-08-14] MEDS: Magnesium Oxide 400 MG Tab PO SCH (11:59)
[2020-08-14] MEDS: Cyanocobalamin (Vitamin B12) 1,000 MCG Tab PO SCH (11:59)
[2020-08-14] MEDS: Multivitamin Tab PO SCH (17:05)
[2020-08-14] MEDS: Simvastatin 20 MG Tab PO SCH (17:05)
[2020-08-15] MEDS: Acetaminophen 500 MG Tab PO SCH ×3 (05:18→22:10)
[2020-08-15] MEDS: metFORMIN 500 MG Tab PO SCH ×2 (07:57→17:37)
[2020-08-15] MEDS: Calcium Carbonate/Vitamin D3 1500 MG-400 Units Tab PO SCH ×2 (07:57→17:36)
[2020-08-15] MEDS: Metoprolol Tartrate 25 MG Tab PO SCH ×2 (07:58→20:33)
[2020-08-15] MEDS: Cholecalciferol (Vitamin D3) 25 MCG Tab PO SCH (07:59)
[2020-08-15] MEDS: Losartan 50 MG Tab PO SCH (07:59)
[2020-08-15] MEDS: Enoxaparin 40 MG/0.4 ML Syringe SUBCUT SCH (08:00)
[2020-08-15] MEDS: Ascorbic Acid 500 MG Tab PO SCH (08:00)
[2020-08-15] MEDS: Magnesium Oxide 400 MG Tab PO SCH (12:24)
[2020-08-15] MEDS: Cyanocobalamin (Vitamin B12) 1,000 MCG Tab PO SCH (12:24)
[2020-08-15] MEDS: Multivitamin Tab PO SCH (17:36)
[2020-08-15] MEDS: Simvastatin 20 MG Tab PO SCH (17:36)
[2020-08-16] MEDS: Ascorbic Acid 500 MG Tab PO SCH (08:27)
[2020-08-16] MEDS: Enoxaparin 40 MG/0.4 ML Syringe SUBCUT SCH (08:27)
[2020-08-16] MEDS: Cholecalciferol (Vitamin D3) 25 MCG Tab PO SCH (08:27)
[2020-08-16] MEDS: Acetaminophen 500 MG Tab PO SCH ×3 (08:27→22:05)
[2020-08-16] MEDS: metFORMIN 500 MG Tab PO SCH ×2 (08:27→17:41)
[2020-08-16] MEDS: Losartan 50 MG Tab PO SCH (08:28)
[2020-08-16] MEDS: Calcium Carbonate/Vitamin D3 1500 MG-400 Units Tab PO SCH ×2 (08:28→17:41)
[2020-08-16] MEDS: Metoprolol Tartrate 25 MG Tab PO SCH ×2 (08:31→19:41)
[2020-08-16] MEDS: Aspirin 81 MG Tab.EC PO SCH (12:34)
[2020-08-16] MEDS: Cyanocobalamin (Vitamin B12) 1,000 MCG Tab PO SCH (12:34)
[2020-08-16] MEDS: Magnesium Oxide 400 MG Tab PO SCH (12:34)
[2020-08-16] MEDS: Simvastatin 20 MG Tab PO SCH (17:41)
[2020-08-16] MEDS: Multivitamin Tab PO SCH (17:41)
[2020-08-16] MEDS ORDERED: Ondansetron 4 MG Tab.DIS PO SCH (20:30)
[2020-08-17] MEDS: Acetaminophen 500 MG Tab PO SCH ×3 (06:13→21:17)
[2020-08-17] MEDS: Ascorbic Acid 500 MG Tab PO SCH (08:05)
[2020-08-17] MEDS: Calcium Carbonate 500 MG Tab.Chew PO PRN (08:05)
[2020-08-17] MEDS: Losartan 50 MG Tab PO SCH (08:06)
[2020-08-17] MEDS: Cholecalciferol (Vitamin D3) 25 MCG Tab PO SCH (08:06)
[2020-08-17] MEDS: Calcium Carbonate/Vitamin D3 1500 MG-400 Units Tab PO SCH ×2 (08:06→17:00)
[2020-08-17] MEDS: Metoprolol Tartrate 25 MG Tab PO SCH ×2 (08:07→19:54)
[2020-08-17] MEDS: metFORMIN 500 MG Tab PO SCH ×2 (08:07→17:00)
[2020-08-17] MEDS: Enoxaparin 40 MG/0.4 ML Syringe SUBCUT SCH (08:08)
[2020-08-17] MEDS: Magnesium Oxide 400 MG Tab PO SCH (12:11)
[2020-08-17] MEDS: Cyanocobalamin (Vitamin B12) 1,000 MCG Tab PO SCH (12:11)
[2020-08-17] MEDS: Aspirin 81 MG Tab.EC PO SCH (12:11)
--- NOTE | 2020-08-17 16:28 | PCM.PN ---
- General Info Date of Service: 08/17/20 Admission Dx/Problem (Free Text): Right ankle facture secondary to a fall s/p ORIF Functional Status: Reports: Pain Controlled, Tolerating Diet - Review of Systems General: Reports: No Symptoms HEENT: Reports: No Symptoms Pulmonary: Reports: No Symptoms Cardiovascular: Reports: No Symptoms Gastrointestinal: Reports: No Symptoms Genitourinary: Reports: No Symptoms Musculoskeletal: Reports: Foot Pain Skin: Reports: No Symptoms Neurological: Reports: No Symptoms Psychiatric: Reports: No Symptoms - Patient Data Vitals - Most Recent: Last Vital Signs Temp 98.4 F 08/17/20 07:25 Pulse 94 08/17/20 08:07 Resp 15 08/17/20 07:25 BP 143/72 H 08/17/20 08:07 Pulse Ox 97 08/17/20 07:25 Weight - Most Recent: 119 lb 6.4 oz I&O - Last 24 Hours: Intake & Output 08/17/20 08/17/20 08/17/20 06:59 14:59 22:59 Intake Total 540 Balance 540 Lab Results Last 24 Hours: Laboratory Results - last 24 hr 08/16/20 08/17/20 Range/Units 17:40 07:27 POC Glucose 121 H 100 H (70-99) mg/dL Med Orders - Current: Current Medications Acetaminophen (Acetaminophen 325 Mg Tab) 650 mg PO Q4H PRN PRN Reason: Pain (Mild 1-3)/fever Acetaminophen (Acetaminophen 500 Mg Tab) 1,000 mg PO 0600,1400,2200 [facility] Last Admin: 08/17/20 15:54 Dose: Not Given Documented by: Al Hydroxide/Mg Hydroxide (Aluminum Hydroxide/Magnesium Hydroxide/Simethicone Susp 30 Ml Cup) 30 ml PO Q4H PRN PRN Reason: Indigestion Last Admin: 08/06/20 17:03 Dose: 30 ml Documented by: Ascorbic Acid (Ascorbic Acid 500 Mg Tab) 250 mg PO DAILY [facility] Last Admin: 08/17/20 08:05 Dose: 250 mg Documented by: Aspirin (Aspirin 81 Mg Tab.Ec) 162 mg PO DAILY@12 [facility] Last Admin: 08/17/20 12:11 Dose: 162 mg Documented by: Bisacodyl (Bisacodyl 5 Mg Tab) 5 mg PO DAILY PRN PRN Reason: Constipation Bismuth Subsalicylate (Bismuth Subsalicylate 262 Mg/15 Ml Susp 236 Ml Bottle) 30 ml PO TID PRN PRN Reason: Diarrhea Last Admin: 08/12/20 17:05 Dose: 30 ml Documented by: Calcium Carbonate (Calcium Carbonate/Vitamin D3 1500 Mg-400 Units Tab) 1 tab PO BIDMEALS [facility] Last Admin: 08/17/20 08:06 Dose: 1 tab Documented by: Calcium Carbonate/Glycine (Calcium Carbonate 500 Mg Tab.Chew) 1,000 mg PO Q4HR PRN PRN Reason: acid reflux Last Admin: 08/17/20 08:05 Dose: 1,000 mg Documented by: Cholecalciferol (Cholecalciferol (Vitamin D3) 25 Mcg Tab) 50 mcg PO DAILY [facility] Last Admin: 08/17/20 08:06 Dose: 50 mcg Documented by: Cyanocobalamin (Cyanocobalamin (Vitamin B12) 1,000 Mcg Tab) 1,000 mcg PO DAILY@1200 [facility] Last Admin: 08/17/20 12:11 Dose: 1,000 mcg Documented by: Glimepiride (Glimepiride 2 Mg Tab) 2 mg PO DAILY PRN PRN Reason: BS>110 Loperamide HCl (Loperamide 2 Mg Tab) 4 mg PO DAILY PRN PRN Reason: Diarrhea Last Admin: 08/16/20 21:57 Dose: 4 mg Documented by: Loperamide HCl (Loperamide 2 Mg Tab) 2 mg PO Q6H PRN PRN Reason: Diarrhea Last Admin: 08/17/20 03:17 Dose: 2 mg Documented by: Losartan Potassium (Losartan 50 Mg Tab) 50 mg PO DAILY [facility] Last Admin: 08/17/20 08:06 Dose: 50 mg Documented by: Magnesium Oxide (Magnesium Oxide 400 Mg Tab) 400 mg PO DAILY@1200 [facility] Last Admin: 08/17/20 12:11 Dose: 400 mg Documented by: Melatonin (Melatonin 3 Mg Tab) 3 mg PO BEDTIME PRN PRN Reason: Insomnia Metformin HCl (Metformin 500 Mg Tab) 1,000 mg PO BIDMEALS [facility] Last Admin: 08/17/20 08:07 Dose: 1,000 mg Documented by: Metoprolol Tartrate (Metoprolol Tartrate 25 Mg Tab) 12.5 mg PO Q12H [facility] Last Admin: 08/17/20 08:07 Dose: 12.5 mg Documented by: Multivitamins/Minerals/Vitamin C (Multivitamin Tab) 1 tab PO DAILY@1800 [facility] Last Admin: 08/16/20 17:41 Dose: 1 tab Documented by: Polyethylene Glycol (Polyethylene Glycol 3350 Powder 17 Gm Packet) 17 gm PO DAILY PRN PRN Reason: Constipation Senna (Sennosides 8.6 Mg Tab) 1 mg PO BID PRN PRN Reason: Constipation Senna/Docusate Sodium (Docusate Sodium/Sennosides 50-8.6 Mg Tab) 1 tab PO BID PRN PRN Reason: Constipation Simvastatin (Simvastatin 20 Mg Tab) 20 mg PO DAILY@1800 [facility] Last Admin: 08/16/20 17:41 Dose: 20 mg Documented by: Tramadol HCl (Tramadol 50 Mg Tab) 50 mg PO Q6H PRN PRN Reason: Pain Last Admin: 08/11/20 19:37 Dose: 50 mg Documented by: Discontinued Medications Acetaminophen (Acetaminophen 500 Mg Tab) 1,000 mg PO Q8HR [facility] Last Admin: 08/07/20 17:25 Dose: Not Given Documented by: Cyanocobalamin (Cyanocobalamin (Vitamin B12) 1,000 Mcg Tab) 1,000 mcg PO DAILY [facility] Last Admin: 08/10/20 08:09 Dose: 1,000 mcg Documented by: Enoxaparin Sodium (Enoxaparin 40 Mg/0.4 Ml Syringe) 40 mg SUBCUT DAILY [facility] Stop: 08/17/20 08:01 Last Admin: 08/17/20 08:08 Dose: 40 mg Documented by: Loperamide HCl (Loperamide 2 Mg Tab) 4 mg PO ONETIME ONE Stop: 08/12/20 21:10 Last Admin: 08/12/20 21:17 Dose: 4 mg Documented by: Loperamide HCl (Loperamide 2 Mg Tab) 4 mg PO Q6H PRN PRN Reason: Diarrhea Last Admin: 08/13/20 19:39 Dose: 4 mg Documented by: Magnesium Oxide (Magnesium Oxide 400 Mg Tab) 400 mg PO DAILY [facility] Last Admin: 08/10/20 08:03 Dose: 400 mg Documented by: Multivitamins/Minerals/Vitamin C (Multivitamin Tab) 1 tab PO DAILY [facility] Last Admin: 08/10/20 08:09 Dose: 1 tab Documented by: Ondansetron HCl (Ondansetron 4 Mg Tab.Dis) 4 mg PO Q8H [facility] Last Admin: 08/16/20 21:38 Dose: Not Given Documented by: Oxycodone HCl (Oxycodone 5 Mg Tab) 5 mg PO Q4HR PRN PRN Reason: pain Polyethylene Glycol (Polyethylene Glycol 3350 Powder 17 Gm Packet) 17 gm PO DA PAULINO [facility] Last Admin: 08/07/20 07:36 Dose: Not Given Documented by: Senna/Docusate Sodium (Docusate Sodium/Sennosides 50-8.6 Mg Tab) 1 tab PO BID [facility] Last Admin: 08/07/20 17:25 Dose: Not Given Documented by: Simvastatin (Simvastatin 20 Mg Tab) 20 mg PO DAILY [facility] Last Admin: 08/10/20 08:10 Dose: 20 mg Documented by: - Exam Quality Assessment: Supplemental Oxygen General: Alert, Oriented, Cooperative Neck: Supple Lungs: Clear to Auscultation, Normal Respiratory Effort Cardiovascular: Regular Rate, Regular Rhythm GI/Abdominal Exam: Normal Bowel Sounds, Soft, Non-Tender Back Exam: Normal Inspection, Full Range of Motion Extremities: Normal Inspection, Normal Range of Motion, Non-Tender Wound/Incisions: Healing Well, Dressing Dry and Intact, Erythema Improving Neurological: No New Focal Deficit Psy/Mental Status: Alert, Normal Affect, Normal Mood - Patient Data Lab Results Last 24 hrs: Laboratory Results - last 24 hr 08/16/20 08/17/20 Range/Units 17:40 07:27 POC Glucose 121 H 100 H (70-99) mg/dL Sepsis Event Note - Evaluation Sepsis Screening Result: No Definite Risk - Focused Exam Vital Signs: Vital Signs Temp Pulse Pulse Resp BP BP Pulse Ox 08/17/20 08:07 94 143/72 H 08/17/20 08:06 143/72 H 08/17/20 07:25 98.4 F 94 15 143/72 H 97 - Problem List & Annotations (1) Diabetes SNOMED Code(s): 51267233 Code(s): E11.9 - TYPE 2 DIABETES MELLITUS WITHOUT COMPLICATIONS Status: Acute Current Visit: Yes Qualifiers: Diabetes mellitus type: type 2 Diabetes mellitus snf insulin use: without long distance operator use Diabetes mellitus complication status: without complication Qualified Code(s): E11.9 - Type 2 diabetes mellitus without complications (2) Status post ORIF of fracture of ankle SNOMED Code(s): 629227104 Code(s): Z98.890 - OTHER SPECIFIED POSTPROCEDURAL STATES; Z87.81 - PERSONAL HISTORY OF (HEALED) TRAUMATIC FRACTURE Status: Acute Current Visit: Yes (3) Hypertension SNOMED Code(s): 24041255 Code(s): I10 - ESSENTIAL (PRIMARY) HYPERTENSION Status: Acute Current Visit: Yes Qualifiers: Hypertension type: essential hypertension Qualified Code(s): I10 - Essential (primary) hypertension (4) GERD (gastroesophageal reflux disease) SNOMED Code(s): 650059765 Code(s): K21.9 - GASTRO-ESOPHAGEAL REFLUX DISEASE WITHOUT ESOPHAGITIS Status: Acute Current Visit: Yes Qualifiers: Esophagitis presence: without esophagitis Qualified Code(s): K21.9 - Gastro-esophageal reflux disease without esophagitis - Problem List Review Problem List Initiated/Reviewed/Updated: Yes - My Orders Last 24 Hours: My Active Orders 08/17/20 12:09 Todd Suture Removal [OM.PC] Routine - Plan Plan:: 08/07/2020 1. Right ankle fracture s/p ORIF: continue with ankle splint and bandage to right LE, CMS checks within normal limits to right toes. Orthopedics follow up next week at [facility] 2. Type 2 DM: Blood sugars reviewed, continue current medication of metformin 3. Hypertension: on Losartan and blood pressures are running higher with heart rate 90-108. Will start metoprolol tartrate 12.5mg one tablet twice a day and monitor blood pressures 4. Diarrhea: most likely from Miralax and Senna will change to as needed 5. Acute renal failure noted in notes from hospitalization: will check BMP before discharged to home 6. GERD: will start pepcid 20mg one tablet daily and use TUMS as needed 7. Hyperlipidemia: continue on Simvastatin Patient's pain is controlled on Tylenol three times a day, will adjust times so patient does not have to be woke up at midnight. Continue with PT/OT, hopes to discharge to home next week will depend on orthopedics visit and progress in therapy. Patient would benefit from a home evaluation to see how she does inside her home and if any medical equipment is needed. Dr Bundy is notified of patient's plan of care. Tawny Benavidez CNP 08/17/2020 1. Right ankle fracture status post ORIF: Incisions examined today, no warmth or infection noted, no drainage noted. Nursing to remove sutures last orthopedic note reviewed. Patient states pain is managed with Tylenol. 2. Hypertension: Blood pressures improved after starting metoprolol titrate him continue on losartan. 3. Type 2 diabetes mellitus: Blood sugars reviewed, continue on metformin. 4. GERD: Patient denies any symptoms at this time, continue on Pepcid. 5. Hyper lipidemia: Continue on simvastatin Patient is doing a home visit with physical and occupational therapy. Plan for the patient to discharge later on this week. Patient will be discharged to home with home health care. The patient did not have any further questions or concerns. Tawny Benavidez,PILLOWCASE TURNER
[2020-08-17] MEDS: Multivitamin Tab PO SCH (17:00)
[2020-08-17] MEDS: Simvastatin 20 MG Tab PO SCH (17:00)
[2020-08-18] MEDS: Acetaminophen 500 MG Tab PO SCH ×3 (05:38→20:59)
[2020-08-18] MEDS: Losartan 50 MG Tab PO SCH (07:38)
[2020-08-18] MEDS: metFORMIN 500 MG Tab PO SCH ×2 (07:38→17:12)
[2020-08-18] MEDS: Ascorbic Acid 500 MG Tab PO SCH (07:38)
[2020-08-18] MEDS: Metoprolol Tartrate 25 MG Tab PO SCH ×2 (07:39→20:58)
[2020-08-18] MEDS: Calcium Carbonate/Vitamin D3 1500 MG-400 Units Tab PO SCH ×2 (07:39→17:12)
[2020-08-18] MEDS: Cholecalciferol (Vitamin D3) 25 MCG Tab PO SCH (07:39)
[2020-08-18] MEDS: Aspirin 81 MG Tab.EC PO SCH (11:55)
[2020-08-18] MEDS: Cyanocobalamin (Vitamin B12) 1,000 MCG Tab PO SCH (11:55)
[2020-08-18] MEDS: Magnesium Oxide 400 MG Tab PO SCH (11:55)
[2020-08-18] MEDS: Multivitamin Tab PO SCH (17:12)
[2020-08-18] MEDS: Simvastatin 20 MG Tab PO SCH (17:12)
[2020-08-19] MEDS: Acetaminophen 500 MG Tab PO SCH ×3 (06:18→21:30)
[2020-08-19] MEDS: Calcium Carbonate/Vitamin D3 1500 MG-400 Units Tab PO SCH ×2 (08:43→17:03)
[2020-08-19] MEDS: Cholecalciferol (Vitamin D3) 25 MCG Tab PO SCH (08:44)
[2020-08-19] MEDS: Ascorbic Acid 500 MG Tab PO SCH (08:44)
[2020-08-19] MEDS: metFORMIN 500 MG Tab PO SCH ×2 (08:44→17:04)
[2020-08-19] MEDS: Losartan 50 MG Tab PO SCH (08:45)
[2020-08-19] MEDS: Metoprolol Tartrate 25 MG Tab PO SCH ×2 (08:46→19:33)
[2020-08-19] MEDS: Cyanocobalamin (Vitamin B12) 1,000 MCG Tab PO SCH (11:59)
[2020-08-19] MEDS: Aspirin 81 MG Tab.EC PO SCH (11:59)
[2020-08-19] MEDS: Magnesium Oxide 400 MG Tab PO SCH (11:59)
[2020-08-19] MEDS: Simvastatin 20 MG Tab PO SCH (17:03)
[2020-08-19] MEDS: Multivitamin Tab PO SCH (17:03)
--- NOTE | 2020-08-19 18:25 | PCM.DCSUM1 ---
Discharge Summary - Hospital Course Free Text/Narrative:: The patient is a 89-year-old female who was transferred from [facility] after sustaining a right ankle fracture requiring surgical repair. Does live at home by herself and needed further strengthening with physical therapy. During her swing bed stay the patient's pain has been controlled on Tylenol. Patient did have issues with elevated blood pressure and was started on metoprolol. Blood pressures have been much improved. Patient states that she is going to be going home today to do a home evaluation to see how she can move around and get in and out of her house. She will have her daughter staying with her for a few days. Diagnosis: Stroke: No - Discharge Data Discharge Date: 08/20/20 (home with home care on 08/20/2020) Discharge Disposition: Home, W Home Health Agency 06 Condition: Good - Referral to Home Health Date of Face to Face Encounter: 08/19/20 Reason for Homebound Status: Patient has had a recent right ankle fracture requiring surgery as well as immobility with limited weight bear to the right lower extremity. Primary Care Physician: Tawny Benavidez NP Skilled Need: nursing and physical therapy - Discharge Diagnosis/Problem(s) (1) Diabetes SNOMED Code(s): 15223744 ICD Code: E11.9 - TYPE 2 DIABETES MELLITUS WITHOUT COMPLICATIONS Status: Acute Current Visit: Yes Qualifiers: Diabetes mellitus type: type 2 Diabetes mellitus buttermaker helper insulin use: without buttermaker helper use Diabetes mellitus complication status: without complication Qualified Code(s): E11.9 - Type 2 diabetes mellitus without complications (2) Status post ORIF of fracture of ankle SNOMED Code(s): 800790994 ICD Code: Z98.890 - OTHER SPECIFIED POSTPROCEDURAL STATES; Z87.81 - PERSONAL HISTORY OF (HEALED) TRAUMATIC FRACTURE Status: Acute Current Visit: Yes Problem Details: Receiving physical therapy and has follow-up with orthopedics. (3) Hypertension SNOMED Code(s): 96703958 ICD Code: I10 - ESSENTIAL (PRIMARY) HYPERTENSION Status: Acute Current Visit: Yes Qualifiers: Hypertension type: essential hypertension Qualified Code(s): I10 - Essenti al (primary) hypertension (4) GERD (gastroesophageal reflux disease) SNOMED Code(s): 562648749 ICD Code: K21.9 - GASTRO-ESOPHAGEAL REFLUX DISEASE WITHOUT ESOPHAGITIS Status: Acute Current Visit: Yes Qualifiers: Esophagitis presence: without esophagitis Qualified Code(s): K21.9 - Gastro-esophageal reflux disease without esophagitis - Patient Summary/Data Consults: Consultations 08/04/20 14:49 OT Evaluation and Treatment [CONS] Routine PT Evaluation and Treatment [CONS] Routine - Patient Instructions Diet: Regular Diet as Tolerated (CAM boot to the right lower extremity) Driving: Do Not Drive Showering/Bathing: May Shower Wound/Incision, Other: Incisions to the right lower extremity dry and intact Notify Provider of: Fever, Increased Pain, Swelling and Redness, Drainage, Nausea and/or Vomiting - Discharge Plan *PRESCRIPTION DRUG MONITORING PROGRAM REVIEWED*: Not Applicable Prescriptions/Med Rec: Metoprolol Tartrate [Lopressor] 12.5 mg PO Q12H 90 Days tablet Home Medications: Home Meds Aspirin [Aspirin EC] 2 tab PO DAILY@12 08/04/20 [History] Calcium Carbonate 2 tab PO Q4HR PRN 08/04/20 [History] Calcium Citrate/Vitamin D3 [Calcium Citrate - Vit D3 Tab] 1 tab PO BIDMEALS 08/04/20 [History] Glimepiride 1 tab PO DAILY PRN 08/04/20 [History] Losartan [Cozaar] 1 tab PO DAILY 08/04/20 [History] Melatonin 1 tab PO BEDTIME PRN 08/04/20 [History] Multivit-Min/Iron/Folic/Lutein [Centrum Silver Women Tablet] 1 tab PO DAILY 08/04/20 [History] Sennosides/Docusate Sodium [Senna-S 8.6-50 mg Tablet] 1 tab PO BID 08/04/20 [History] Simvastatin [Zocor] 1 tab PO DAILY 08/04/20 [History] metFORMIN [Glucophage] 2 tab PO BIDMEALS 08/04/20 [History] Acetaminophen [Tylenol] 650 mg PO Q4H PRN tablet 08/19/20 [Rx] Metoprolol Tartrate [Lopressor] 12.5 mg PO Q12H 90 Days tablet 08/19/20 [Rx] Sennosides [Senna] 1 mg PO BID PRN tablet 08/19/20 [Rx] Oxygen Therapy Mode: Room Air - Discharge Summary/Plan Comment DC Time >30 min.: No Discharge Summary/Plan Comment: Patient will be discharged to home on08/20/2020 with home health care and physical therapy. Pain will be managed with Tylenol as that has controlled her pain while she was in swing bed. The patient will continue to follow with orthopedics as the parameters are descended up. Patient is to continue with the cam walker to the right lower extremity. The patient was educated on side effects of infection. Tawny Benavidez CNP - Patient Data Vitals - Most Recent: Last Vital Signs Temp 97.9 F 08/19/20 08:00 Pulse 104 H 08/19/20 08:46 Resp 18 08/19/20 08:00 BP 139/73 08/19/20 08:46 Pulse Ox 99 08/19/20 08:00 Weight - Most Recent: 116 lb I&O - Last 24 hours: Intake & Output 08/19/20 08/19/20 08/19/20 06:59 14:59 22:59 Intake Total 440 Balance 440 Lab Results - Last 24 hrs: Laboratory Results - last 24 hr 08/19/20 Range/Units 17:00 POC Glucose 161 H (70-99) mg/dL Med Orders - Current: Current Medications Acetaminophen (Acetaminophen 325 Mg Tab) 650 mg PO Q4H PRN PRN Reason: Pain (Mild 1-3)/fever Acetaminophen (Acetaminophen 500 Mg Tab) 1,000 mg PO 0600,1400,2200 [facility] Last Admin: 08/19/20 15:00 Dose: Not Given Documented by: Al Hydroxide/Mg Hydroxide (Aluminum Hydroxide/Magnesium Hydroxide/Simethicone Susp 30 Ml Cup) 30 ml PO Q4H PRN PRN Reason: Indigestion Last Admin: 08/06/20 17:03 Dose: 30 ml Documented by: Ascorbic Acid (Ascorbic Acid 500 Mg Tab) 250 mg PO DAILY [facility] Last Admin: 08/19/20 08:44 Dose: 250 mg Documented by: Aspirin (Aspirin 81 Mg Tab.Ec) 162 mg PO DAILY@12 [facility] Last Admin: 08/19/20 11:59 Dose: 162 mg Documented by: Bisacodyl (Bisacodyl 5 Mg Tab) 5 mg PO DAILY PRN PRN Reason: Constipation Bismuth Subsalicylate (Bismuth Subsalicylate 262 Mg/15 Ml Susp 236 Ml Bottle) 30 ml PO TID PRN PRN Reason: Diarrhea Last Admin: 08/12/20 17:05 Dose: 30 ml Documented by: Calcium Carbonate (Calcium Carbonate/Vitamin D3 1500 Mg-400 Units Tab) 1 tab PO BIDMEALS [facility] Last Admin: 08/19/20 17:03 Dose: 1 tab Documented by: Calcium Carbonate/Glycine (Calcium Carbonate 500 Mg Tab.Chew) 1,000 mg PO Q4HR PRN PRN Reason: acid reflux Last Admin: 08/10/20 10:13 Dose: 1,000 mg Documented by: Cholecalciferol (Cholecalciferol (Vitamin D3) 25 Mcg Tab) 50 mcg PO DAILY [facility] Last Admin: 08/19/20 08:44 Dose: 50 mcg Documented by: Cyanocobalamin (Cyanocobalamin (Vitamin B12) 1,000 Mcg Tab) 1,000 mcg PO DAILY@1200 [facility] Last Admin: 08/19/20 11:59 Dose: 1,000 mcg Documented by: Glimepiride (Glimepiride 2 Mg Tab) 2 mg PO DAILY PRN PRN Reason: BS>110 Loperamide HCl (Loperamide 2 Mg Tab) 4 mg PO DAILY PRN PRN Reason: Diarrhea Last Admin: 08/16/20 21:57 Dose: 4 mg Documented by: Loperamide HCl (Loperamide 2 Mg Tab) 2 mg PO Q6H PRN PRN Reason: Diarrhea Last Admin: 08/17/20 03:17 Dose: 2 mg Documented by: Losartan Potassium (Losartan 50 Mg Tab) 50 mg PO DAILY [facility] Last Admin: 08/19/20 08:45 Dose: 50 mg Documented by: Magnesium Oxide (Magnesium Oxide 400 Mg Tab) 400 mg PO DAILY@1200 [facility] Last Admin: 08/19/20 11:59 Dose: 400 mg Documented by: Melatonin (Melatonin 3 Mg Tab) 3 mg PO BEDTIME PRN PRN Reason: Insomnia Metformin HCl (Metformin 500 Mg Tab) 1,000 mg PO BIDMEALS [facility] Last Admin: 08/19/20 17:04 Dose: 1,000 mg Documented by: Metoprolol Tartrate (Metoprolol Tartrate 25 Mg Tab) 12.5 mg PO Q12H [facility] Last Admin: 08/19/20 08:46 Dose: 12.5 mg Documented by: Multivitamins/Minerals/Vitamin C (Multivitamin Tab) 1 tab PO DAILY@1800 [facility] Last Admin: 08/19/20 17:03 Dose: 1 tab Documented by: Polyethylene Glycol (Polyethylene Glycol 3350 Powder 17 Gm Packet) 17 gm PO DAILY PRN PRN Reason: Constipation Senna (Sennosides 8.6 Mg Tab) 1 mg PO BID PRN PRN Reason: Constipation Senna/Docusate Sodium (Docusate Sodium/Sennosides 50-8.6 Mg Tab) 1 tab PO BID PRN PRN Reason: Constipation Simvastatin (Simvastatin 20 Mg Tab) 20 mg PO DAILY@1800 [facility] Last Admin: 08/19/20 17:03 Dose: 20 mg Documented by: Tramadol HCl (Tramadol 50 Mg Tab) 50 mg PO Q6H PRN PRN Reason: Pain Last Admin: 08/11/20 19:37 Dose: 50 mg Documented by: Discontinued Medications Acetaminophen (Acetaminophen 500 Mg Tab) 1,000 mg PO Q8HR [facility] Last Admin: 08/07/20 17:25 Dose: Not Given Documented by: Cyanocobalamin (Cyanocobalamin (Vitamin B12) 1,000 Mcg Tab) 1,000 mcg PO DAILY [facility] Last Admin: 08/10/20 08:09 Dose: 1,000 mcg Documented by: Enoxaparin Sodium (Enoxaparin 40 Mg/0.4 Ml Syringe) 40 mg SUBCUT DAILY [facility] Stop: 08/17/20 08:01 Last Admin: 08/17/20 08:08 Dose: 40 mg Documented by: Loperamide HCl (Loperamide 2 Mg Tab) 4 mg PO ONETIME ONE Stop: 08/12/20 21:10 Last Admin: 08/12/20 21:17 Dose: 4 mg Documented by: Loperamide HCl (Loperamide 2 Mg Tab) 4 mg PO Q6H PRN PRN Reason: Diarrhea Last Admin: 08/13/20 19:39 Dose: 4 mg Documented by: Magnesium Oxide (Magnesium Oxide 400 Mg Tab) 400 mg PO DAILY [facility] Last Admin: 08/10/20 08:03 Dose: 400 mg Documented by: Multivitamins/Minerals/Vitamin C (Multivitamin Tab) 1 tab PO DAILY [facility] Last Admin: 08/10/20 08:09 Dose: 1 tab Documented by: Ondansetron HCl (Ondansetron 4 Mg Tab.Dis) 4 mg PO Q8H [facility] Last Admin: 08/16/20 21:38 Dose: Not Given Documented by: Oxycodone HCl (Oxycodone 5 Mg Tab) 5 mg PO Q4HR PRN PRN Reason: pain Polyethylene Glycol (Polyethylene Glycol 3350 Powder 17 Gm Packet) 17 gm PO DAILY [facility] Last Admin: 08/07/20 07:36 Dose: Not Given Documented by: Senna/Docusate Sodium (Docusate Sodium/Sennosides 50-8.6 Mg Tab) 1 tab PO BID [facility] Last Admin: 08/07/20 17:25 Dose: Not Given Documented by: Simvastatin (Simvastatin 20 Mg Tab) 20 mg PO DAILY [facility] Last Admin: 08/10/20 08:10 Dose: 20 mg Documented by: *Q Meaningful Use (DIS) - VTE *Q VTE Anticoagulation Contraindications: Med/TX Not Indicated/Need
[2020-08-20] MEDS: Acetaminophen 500 MG Tab PO SCH (06:37)
[2020-08-20] MEDS: Metoprolol Tartrate 25 MG Tab PO SCH (08:23)
[2020-08-20] MEDS: metFORMIN 500 MG Tab PO SCH (08:25)
[2020-08-20] MEDS: Calcium Carbonate/Vitamin D3 1500 MG-400 Units Tab PO SCH (08:25)
[2020-08-20] MEDS: Ascorbic Acid 500 MG Tab PO SCH (08:26)
[2020-08-20] MEDS: Losartan 50 MG Tab PO SCH (08:26)
[2020-08-20 08:27] VITALS: BP 122/71; PULSE 102
[2020-08-20] MEDS: Cholecalciferol (Vitamin D3) 25 MCG Tab PO SCH (08:27)
== END 2020-08-20 09:45 | disposition home health service (06) | DRG 560 ==
LOC: LL.MS 13:14
PROVIDERS: ADMIT Family Medicine; ATTEND Nurse Practitioner Family
DX: S82.891D Other fracture of right lower leg, subsequent encounter for closed fracture with routine healing (principal); N17.9 Acute kidney failure, unspecified; I10 Essential (primary) hypertension; E11.9 Type 2 diabetes mellitus without complications; K21.9 Gastro-esophageal reflux disease without esophagitis; E78.5 Hyperlipidemia, unspecified; R19.7 Diarrhea, unspecified; E78.00 Pure hypercholesterolemia, unspecified; H54.7 Unspecified visual loss; Z79.82 Long term (current) use of aspirin; Z79.899 Other long term (current) drug therapy; Z79.84 Long term (current) use of oral hypoglycemic drugs; Z98.49 Cataract extraction status, unspecified eye
CPT/HCPCS: 82947; 97110-GO; 97110-GP; 97161-GP; 97165-GO; 97530-GO; 97530-GP; 97535-GO; 99305; A9270-GY; J1650